=== PATIENT | male | born 1930 | race Caucasian/White ===

== ENCOUNTER 2017-04-10 10:14 | Outpatient (CLI) | payer MEDICARE, BC ==
--- NOTE | 2017-04-10 14:30 | RAD ---
LUMBAR SPINE WITH FLEXION AND EXTENSION 3 VIEWS: HISTORY: Lumbar spinal stenosis, M48.06. Low back pain radiating down to the legs. FINDINGS: There is a stent placement of the lower abdomen proximal to the iliac vessel. There is moderate to severe degenerative disk space height loss at L5-S1. Moderate degenerative dis k space height loss of L2-3 and L1-2. Large anterior osteophyte formation is also present. There is also extensive facet arthropathy at L4-5 and L5-S1. No acute fracture or malalignment. In the neutral position, there is no significant listhesis. With flexion and extension, there is al so no significant listhesis. IMPRESSION: Spondylosis, moderate, without significant translation on flexion or extension. POS: LISANDRO
== END 2017-04-10 10:15 | disposition home or self-care (01) ==
LOC: TBSIIMAG 10:14
PROVIDERS: ATTEND Neurological Surgery
DX: M48.061 Spinal stenosis, lumbar region without neurogenic claudication (principal); M47.816 Spondylosis without myelopathy or radiculopathy, lumbar region
CPT/HCPCS: 72100

== ENCOUNTER 2017-04-20 10:08 | Outpatient (CLI) | payer MEDICARE, BC ==
[2017-04-20 12:45] LABS: Hematocrit 44.4 % (42.0-52.0); Mean Platelet Volume 7.6 fL (7.4-10.4); White Blood Cell (WBC) Count 8.4 thou/uL (4.8-10.8)
[2017-04-20 12:56] LABS: Prothrombin Time 16.2 SEC (12.0-14.7)
[2017-04-20 13:09] LABS: Anion Gap 12 mmol/L (10-20); BUN (Urea Nitrogen) 8 mg/dL (8.4-25.7); Calc. Creatinine Clearance 0 mL/min (70-130); Calcium 9.5 mg/dL (7.8-10.44); Carbon Dioxide 24 mmol/L (23-31); Chloride 107 mmol/L (98-107); Estimated GFR-MDRD 74
--- NOTE | 2017-04-24 15:51 | EKG ---
Test Reason : Blood Pressure : / mmHG Vent. Rate : 062 BPM Atrial Rate : 062 BPM P-R Int : 178 ms QRS Dur : 094 ms QT Int : 404 ms P-R-T Axes : 043 -21 063 degrees QTc Int : 410 ms Sinus rhythm with occasional Premature ventricular complexes and Possible Premature atrial complexes with Abberant conduction Cannot rule out Anterior infarct , age undetermined Abnormal ECG No previous ECGs available Confirmed by DR. Jeny MOODY ([id number]) on 04/24/2017 3:50:50 PM Referred By: NELLY Confirmed By:DR. Jeny MOODY
== END 2017-04-20 10:09 | disposition home or self-care (01) ==
LOC: LABBT 10:08
PROVIDERS: ATTEND Neurological Surgery
DX: Z01.812 Encounter for preprocedural laboratory examination (principal); M48.061 Spinal stenosis, lumbar region without neurogenic claudication
CPT/HCPCS: 80048; 85027; 85610; 85730; 93005; 93010

== ENCOUNTER 2017-04-21 05:31 | Inpatient (IN) | payer MEDICARE, BC ==
[2017-04-20 11:03] VITALS: BMI 27.9
[2017-04-21] MEDS ORDERED: Levofloxacin 500 mg/D5W 100 ml Premix Bag ONE (06:06)
[2017-04-21] MEDS ORDERED: Clindamycin/D5W 900 mg/50 ml Premix Bag ONE (06:06)
[2017-04-21] MEDS ORDERED: Thrombin 5000 UNITS/5 ML VIAL ONE (06:17)
[2017-04-21] MEDS ORDERED: Bupivacaine PF 0.5% 30 ML VIAL ONE (06:17)
[2017-04-21] MEDS ORDERED: Sodium Chloride 0.9% 10 ML ONE (06:17)
[2017-04-21] MEDS ORDERED: Fentanyl 100 MCG/2 ML VIAL ONE ×2 (06:29→10:02)
[2017-04-21] MEDS ORDERED: ePHEDrine/0.9% NaCl/PF SYRINGE 50 mg/10 ml ONE (07:07)
[2017-04-21] MEDS ORDERED: Succinylcholine Chloride 20 MG/ML 10 ml SYRINGE FS ONE (07:07)
[2017-04-21] MEDS ORDERED: Esmolol 100 MG/10 ML VIAL ONE (07:07)
[2017-04-21] MEDS ORDERED: Glycopyrrolate 0.2 MG/ML 5 ML SYRINGE ONE (07:07)
[2017-04-21] MEDS ORDERED: Lidocaine 1% PF 5 ML VIAL ONE (07:07)
[2017-04-21] MEDS ORDERED: Ondansetron HCl/PF 4 MG/2 ML Vial ONE (07:07)
[2017-04-21] MEDS ORDERED: Propofol 200 MG/20 ML VIAL ONE (07:07)
[2017-04-21] MEDS ORDERED: Acetaminophen/Codeine 30-300mg Tablet PO PRN ×2 (09:19)
[2017-04-21] MEDS ORDERED: Bisacodyl 10 MG SUPP PR PRN (09:19)
[2017-04-21] MEDS ORDERED: Ondansetron HCl/PF 4 MG/2 ML Vial IVP PRN (09:19)
[2017-04-21] MEDS ORDERED: Morphine 4 MG/ML Carpuject SLOW IVP PRN (09:19)
[2017-04-21] MEDS ORDERED: tiZANidine HCl 4 MG TAB PO PRN (09:19)
[2017-04-21] MEDS ORDERED: Nitroglycerin 0.4 MG TAB (25 Tab Bottle) ONE (10:16)
--- NOTE | 2017-04-21 10:34 | OP ---
DATE OF SURGERY: 04/21/2017 SURGEON: Carmen Alva M.D. SUPERVISOR WET END: Americo Kerr PA-C. PREOPERATIVE INDICATION: Treat pain, prevent neurological deterioration. PREOPERATIVE DIAGNOSES: Severe lumbar stenosis, neurogenic claudication, L3-L4 and L4-L5. POSTOPERATIVE DIAGNOSES: Severe lumbar stenosis, neurogenic claudication, L3-L4 and L4-L5. OPERATIVE PROCEDURE: Decompressive laminectomy, medial facetectomy, foraminotomy L3-L4, L4-L5. PREOPERATIVE MEDICATION: Levaquin 500 mg IV, clindamycin 900 mg IV. DRAIN NUMBER: Zero. DRAIN TYPE: None. OPERATIVE DICTATION: The patient was brought to the operating room. General endotracheal anesthesi a was induced. The patient was positioned prone on the operating table with his chest and hips supp orted by gel-filled chest rolls. A lateral fluoro radiograph was used to plan our incision. The [facility] skin was sterilely prepped and draped. We opened with a 10 blade knife and controlled bleeding with bipolar and monopolar cautery. We used monopolar cautery to dissect through the subcutaneous tissues to the thoracodorsal fascia. We incised the fascia in the midline and reflected the paraspi nal muscles off the spinous process and lamina of L3, L4, and the top of L5. A lateral fluoro radio graph confirmed the levels upon which we were operating. We used an Adson rongeur to remove the spi nous process of L3 and L4 and the superior portion of L5. Using a Kerrison rongeur, we fashioned th e laminectomy from the bottom of L4 to all the way up to the top of the L3 pedicles. We widened our laminectomy defect. We removed the superior 10 mm of the L5 lamina. We then turned our attention to the lateral recesses. At L3-L4 and L4-L5, the facets were overgrown and the lateral recesses wer e severely compressed. We performed medial facetectomies on both sides and undermining with Kerriso n rongeurs. We widened the lateral recess until we identified the traversing L4 and L5 nerve roots. We followed the nerve roots up their respective foramina on either side, we performed foraminotomi es over these. We turned our attention to L3 nerve roots. We performed foraminotomy here as well. At the completion of our decompression, a Tavarez ball probe could pass through the spinal canal out the foramen at each of the L3, L4, and L5 nerve roots on either side. We irrigated copiously with bacitracin irrigation. We waxed the bone edges. We controlled epidural bleeding with gentle bipola r cautery. We infused local anesthetic in the paraspinal muscles. We irrigated copiously with baci tracin irrigation and closed the wound in anatomic layers. This was a clean case and no contaminati on.
[2017-04-21] MEDS ORDERED: Tamsulosin HCl 0.4 MG CAP PO SCH (20:30)
[2017-04-21] MEDS: Gabapentin 100 MG CAP PO SCH (21:10)
[2017-04-21] MEDS: Sodium Chloride 0.9% 1,000 ML IV SCH (21:10)
[2017-04-21] MEDS: Nitroglycerin 0.4 MG TAB (25 Tab Bottle) SL PRN ×2 (22:32→23:22)
[2017-04-21 23:10] LABS: #Eosinphils 0.1 thou/uL (0.0-0.7); #Lymphocytes 1.9 thou/uL (1.20-3.40); #Monocytes 1.2 thou/uL (0.11-0.59); #Neutrophils 8.9 thou/uL (1.40-6.50); %Basophils 0.2 % (0.0-1.0); %Lymphocytes 15.9 % (21.0-51.0); %Monocytes 9.8 % (0.0-10.0); Hematocrit 39.5 % (42.0-52.0); Mean Platelet Volume 6.9 fL (7.4-10.4); Red Blood Cell (RBC) Count 4.07 mill/uL (4.70-6.10); White Blood Cell (WBC) Count 12.2 thou/uL (4.8-10.8)
[2017-04-21 23:35] LABS: ALT (SGPT) 14 U/L (8-55); AST (SGOT) 28 U/L (5-34); Alkaline Phosphatase 69 U/L (40-150); Anion Gap 15 mmol/L (10-20); BUN (Urea Nitrogen) 7 mg/dL (8.4-25.7); Bilirubin, Total 1.4 mg/dL (0.2-1.2); Calc. Creatinine Clearance 69 mL/min (70-130); Calcium 8.7 mg/dL (7.8-10.44); Carbon Dioxide 21 mmol/L (23-31); Chloride 106 mmol/L (98-107); Estimated GFR-MDRD 78; Globulin 2.3 g/dL (2.4-3.5); Magnesium 1.5 mg/dL (1.6-2.6); Phosphorus 2.5 mg/dL (2.3-4.7); Protein, Total 5.5 g/dL (5.8-8.1)
[2017-04-21 23:39] LABS: Troponin I 1.366 ng/mL (< 0.028)
[2017-04-21] MEDS: Morphine 10 MG/ML VIAL SLOW IVP PRN (23:40)
[2017-04-22] MEDS ORDERED: Magnesium 2 GM/NS 0.9% 50 ML 2 GM in Premix Bag 1 BAG IVPB SCH (00:01)
--- NOTE | 2017-04-22 00:41 | PDOC.EVN ---
Event Note - Event Note Event Note: Ok to give Aspirin 81 mg per Neurosurgery. Will transfer patient to tele, Add Nitro patch, Increase Metoprolol dose, DC Imdur and Amlodipine. Echo and Cardiology consult in AM
[2017-04-22] MEDS ORDERED: Aspirin 81 mg Enteric Coated Tablet PO SCH ×2 (01:00→21:00)
[2017-04-22] MEDS ORDERED: Nitroglycerin 2% Ointment 1 INCH/1 GM Packet TOP SCH ×2 (01:00→09:15)
[2017-04-22] MEDS: Nitroglycerin 2% Ointment 1 INCH/1 GM Packet TOP SCH ×4 (01:07→17:11)
--- NOTE | 2017-04-22 01:27 | PDOC.PN ---
- Subjective Encounter Start Date: 04/22/17 Encounter Start Time: 01:23 Patient seen and examined. New consult for CP. s/p back surgery on 04/21. Had CP post op that responded to SL NTG. Had CP around 11 pm - moderate intensity, substernal with mild diaphoresis/SOB. Recently moved from [facility] care with Dr Xiao in the last 2 months. Had LAD stent placed 17 years ago with several Cath - last one around 18 months ago. Discontinued Plavix 2 months ago after Cochlear implant. Stopped ASA last week for back surgery. - Objective MAR Reviewed: Yes Vital Signs & Weight: Vital Signs (12 hours) Temp Pulse Resp BP Pulse Ox 04/22/17 00:00 98.3 F 82 14 162/72 H 96 04/21/17 22:40 127/72 04/21/17 22:31 98.7 F 80 16 147/74 H 96 04/21/17 20:40 98.7 F 69 18 128/66 97 04/21/17 20:00 98.7 F 69 18 95 Weight Weight 195 lb I&O: 04/20/17 04/21/17 04/22/17 06:59 06:59 06:59 Intake Total 300 Output Total 700 Balance -400 Result Diagrams: 04/21/17 23:03 04/21/17 23:03 Additional Labs: Laboratory Tests 04/21/17 23:03 CK-MB (CK-2) 10.4 H* Troponin I 1.366 H* Laboratory Tests 04/21/17 23:03 Magnesium 1.5 L EKG Reviewed by me: Yes (SR, NSST changes) Phys Exam - Physical Examination Constitutional: NAD Respiratory: no wheezing, no rales, no rhonchi Symmetrical Cardiovascular: RRR, no rub no heaves/pulsations Gastrointestinal: soft, non-tender, positive bowel sounds Musculoskeletal: no edema, pulses present Neurological: non-focal, normal sensation, moves all 4 limbs Psychiatric: normal affect, A&O x 3 Dx/Plan (1) NSTEMI (non-ST elevated myocardial infarction) Code(s): I21.4 - NON-ST ELEVATION (NSTEMI) MYOCARDIAL INFARCTION Status: Acute (2) Hypomagnesemia Code(s): E83.42 - HYPOMAGNESEMIA Status: Acute (3) CAD (coronary artery disease) Code(s): I25.10 - ATHSCL HEART DISEASE OF [place] CORONARY ARTERY W/O ANG PCTRS Status: Chronic (4) H/O prostate cancer Code(s): Z85.46 - PERSONAL HISTORY OF MALIGNANT NEOPLASM OF PROSTATE Status: Chronic (5) BPH (benign prostatic hyperplasia) Code(s): N40.0 - BENIGN PROSTATIC HYPERPLASIA WITHOUT LOWER URINRY TRACT SYMP Status: Chronic (6) HTN (hypertension) Code(s): I10 - ESSENTIAL (PRIMARY) HYPERTENSION Status: Chronic (7) S/P carotid endarterectomy Code(s): Z98.890 - OTHER SPECIFIED POSTPROCEDURAL STATES (8) CKD (chronic kidney disease) stage 2, GFR 60-89 ml/min Code(s): N18.2 - CHRONIC KIDNEY DISEASE, STAGE 2 (MILD) Status: Chronic (9) Chronic anemia Code(s): D64.9 - ANEMIA, UNSPECIFIED Status: Chronic (10) Mild protein-calorie malnutrition Code(s): E44.1 - MILD PROTEIN-CALORIE MALNUTRITION Status: Chronic - Plan DVT proph w/SCDs * Aspirin 81 mg started - RN confirmed with neurosurgery * Increase Betablockers * Echo * Consult Cardiology * No anticoagulants due to back surgery * Increase Lipitor dose * Serial CE * DC Amlodipine * AM labs * Replace Mg * Transferred to Tele * Full code * Hold Imdur - Start NTG patch * Doppler of B/L LE Review of Systems - Review of Systems Constitutional: negative: Fever, Chills, Sweats, Weakness, Malaise, Other Respiratory: negative: Cough, Dry, Shortness of Breath, Hemoptysis, SOB with Excertion, Pleuritic Pain, Sputum, Wheezing Gastrointestinal: negative: Nausea, Vomiting, Abdominal Pain, Diarrhea, Constipation, Melena, Hematochezia, Other Genitourinary: negative: Dysuria, Frequency, Incontinence, Hematuria, Retention , Other Neurological: negative: Weakness, Numbness, Incoordination, Change in Speech, Confusion, Seizures, Other - Medications/Allergies Allergies/Adverse Reactions: Allergies Allergy/AdvReac Type Severity Reaction Status Date / Time Cephalosporins Allergy hives, Verified 04/20/17 11:04 urticaria Penicillins Allergy hives, Verified 04/20/17 11:04 urticaria Medications: Current Medications Acetaminophen/Codeine Phosphate (Tylenol #3) 1 tab PO Q3H PRN PRN Reason: Mild Pain (1-3) Acetaminophen/Codeine Phosphate (Tylenol #3) 2 tab PO Q3H PRN PRN Reason: Moderate Pain (4-6) Aspirin (Ecotrin) 81 mg PO 0100 [facility] Stop: 04/22/17 03:00 Atorvastatin Calcium (Lipitor) 40 mg PO QPM [facility] Bisacodyl (Dulcolax) 10 mg AR Q12H PRN PRN Reason: Constipation Gabapentin (Neurontin) 200 mg PO HS [facility] Last Admin: 04/21/17 21:10 Dose: 200 mg Sodium Chloride (Normal Saline 0.9%) 1,000 mls @ 75 mls/hr IV .[id number] [facility] Last Admin: 04/21/17 21:10 Dose: 1,000 mls Iron/Minerals/Multivitamins (Theragran M) 1 tab PO DAILY [facility] Metoprolol Succinate (Toprol Xl) 12.5 mg PO NOW [facility] Stop: 04/22/17 03:00 Last Admin: 04/22/17 01:07 Dose: 12.5 mg Metoprolol Succinate (Toprol Xl) 12.5 mg PO BID [facility] Morphine Sulfate (Morphine) 2 mg SLOW IVP Q1H PRN PRN Reason: Moderate Breakthrough Pain Last Admin: 04/21/17 23:40 Dose: 2 mg Morphine Sulfate (Morphine) 4 mg SLOW IVP Q1H PRN PRN Reason: Severe Breakthrough Pain Nitroglycerin (Nitrostat) 0.4 mg SL Q5MIN PRN PRN Reason: Chest Pain Last Admin: 04/21/17 23:22 Dose: 0.4 mg Nitroglycerin (Nitro-Bid 2% Ointment) 1 inch TOP Q6HR [facility] Last Admin: 04/22/17 01:07 Dose: 1 inch Nitroglycerin (Nitro-Bid 2% Ointment) 1 inch TOP NOW [facility] Stop: 04/22/17 02:00 Last Admin: 04/22/17 01:16 Dose: Not Given Ondansetron HCl (Zofran) 4 mg IVP Q6H PRN PRN Reason: Nausea/Vomiting Pantoprazole Sodium (Protonix) 20 mg PO 2100 [facility] Glu/Kirk-Msm#1/D3/C/Mn/Hans/Bor [ Glucosamine Chondroitin Comple 1 each PO DAILY [facility] Sodium Chloride (Flush - Normal Saline) 10 ml IVF PRN PRN PRN Reason: Saline Flush Tamsulosin HCl (Flomax) 0.4 mg PO DAILY [facility] Tizanidine HCl (Zanaflex) 4 mg PO Q6H PRN PRN Reason: Muscle Spasm
[2017-04-22] MEDS: Morphine 10 MG/ML VIAL SLOW IVP PRN ×3 (02:31→17:10)
[2017-04-22 03:41] LABS: Troponin I 2.985 ng/mL (< 0.028)
--- NOTE | 2017-04-22 08:15 | PRG ---
DATE OF SERVICE: 04/22/[address] Olguin in his room this morning. He is an 86-year-old male status post decompression of the lumbar spine for lumbar spinal stenosis. His vital signs have been stable. He is slightly hype rtensive at blood pressure 145/74. Yesterday, he was complaining of chest pain and labs were obtain ed that showed CK-MB of 17 and troponin I of 2.985. His BNP was 170. Dr. Villa, his jewelry coater, h as been contacted and he had an echocardiogram of his heart this morning. He received nitroglycerin and morphine last night that seemed to resolve his chest pain fairly immediately. From a neurosurg ical standpoint, the pain that was radiating down his legs from before surgery has resolved. He is able to get up and walked 3 times in his room yesterday. He was able to tolerate a regular diet and he is complaining of some muscle spasms in the low back; however, he notes that walking helps signi ficantly. He can continue to work with physical therapy this morning and will have a venogram done this morning to look for DVT. If there are any further questions, please feel free to contact Neurosurgery.
[2017-04-22 08:23] LABS: Troponin I 6.176 ng/mL (< 0.028)
--- NOTE | 2017-04-22 08:23 | ULT ---
BILATERAL LOWER EXTREMITY VENOUS DOPPLER ULTRASOUND: Date: 04-22-17 Comparison: None. History: Recent immobilization, back surgery, evaluate for deep venous thrombosis. Technique: Multiplanar grayscale sonographic imaging of the venous structures of the bilateral lower extremities obtained with color flow and spectral analysis. FINDINGS: Bilateral common femoral veins, greater saphenous veins, femoral veins, popliteal veins, and posteri or tibial veins are patent. There is normal blood flow, augmentation, and compression within the dipesh p venous system bilaterally. No evidence for DVT seen on either side. There is an elongated mildly complex irregularly marginated focus of fluid echogenicity in the left popliteal fossa region measuring up to 3.5 x 0.7 x 0.9 cm, nonspecific. This may represent subcutane ous edema of an irregular popliteal fossa cyst, possibly ruptured. IMPRESSION: No evidence for deep venous thrombosis of either lower extremity. Small nonspecific mildly complex f luid collection posterior to the left knee in the left popliteal fossa region as described above. POS: LISANDRO
--- NOTE | 2017-04-22 08:27 | PRG ---
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 He had some soreness in the chest yesterday following surgery and he t hought it was from being prone on the operating table until the chest pain turned to tightness, pres sure and some shortness of breath. Nitroglycerin relieved the pain, aspirin was started. He was tr ansferred to the telemetry unit. He did have a bump in his troponins, although no significant EKG c hanges. 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 He is resting comfortably as I entered the room. His neurological examination of the lower extremities is reassuring. Dr. 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 We will need to start rehabilitation with physical therapy and keep him on aspirin. We will keep a león se eye on the wound for any evidence of hematoma formation or neurological deterioration.
[2017-04-22] MEDS ORDERED: [UNRECOGNIZED DRUG - OTHER] PO SCH (09:00)
[2017-04-22] MEDS ORDERED: Amlodipine 5 MG TAB PO SCH (09:00)
[2017-04-22] MEDS ORDERED: Atorvastatin Calcium 20 MG TAB PO SCH (09:00)
[2017-04-22] MEDS ORDERED: Multivit, Therapeutic 1 TAB PO SCH (09:00)
[2017-04-22] MEDS: Cyanocobalamin (Vitamin B-12) 1,000 MCG TAB PO SCH (09:17)
[2017-04-22] MEDS: Folic Acid 1 MG TAB PO SCH (09:17)
[2017-04-22] MEDS: Tamsulosin HCl 0.4 MG CAP PO SCH (09:17)
[2017-04-22] MEDS: Multivitamin W/ Minerals 1 TAB PO SCH (09:17)
[2017-04-22] MEDS: Sodium Chloride 0.9% 1,000 ML IV SCH (11:59)
--- NOTE | 2017-04-22 12:18 | CON ---
DATE OF CONSULTATION: 04/22/2017 INDICATION FOR CONSULTATION: An 86-year-old patient who is status post L4-L5 laminectomy who develo ped a perioperative myocardial infarction. HISTORY OF PRESENT ILLNESS: This is an 86-year-old gentleman who underwent an L3-L5 laminectomy, st arted developing chest pain after the procedure was given nitroglycerin and morphine. He continued to have some discomfort which waxed and waned during the afternoon and evening, it became worse. He then had cardiac enzymes obtained and these were found to be abnormal and appear to be suffering a non-ST segment elevation myocardial infarction. He was continued on the morphine as well as he had been then today started on aspirin. He also was given nitroglycerin. He does have a long history o f coronary artery disease in the past. He has had about 10 cardiac catheterizations in the last 17 years. He has had stents placed, the left anterior descending artery as well as the right coronary artery and possibly even the left circumflex. Most of this work was done in [place], [place]. He re cently moved here less than a year ago and has been followed by [facility]. When he was last a t [facility] he did complain of some chest discomfort about 3 weeks ago and he was started on l roula-acting Imdur and said his symptoms had improved. He was able to go back and do some exercise. Previously to having significant problems with spinal stenosis he was able to walk about a mile a da y and ride a bike about a half a mile a day until he noticed he would become increasingly fatigued a nd then noticed he was unable to walk due to leg pain and he said he really has not had any signific ant exercise in about 6 months, but did start doing some mild exercises once he had been started on the Imdur about 3 weeks ago. Unfortunately, after his surgery at this time, he presented with a darius cardial infarction. His EKG still shows ST segment depression, but no ST segment elevation, has bee n noted. His last cardiac catheterization was in 03/2016. At that time, he was told that there was no intervention necessary. According to the report he has a 30-40% stenosis in the left anterior d escending artery with a patent stent. The diagonal branch was less than 20%, left circumflex, obtus e marginal branch with 30% stenosis. The right coronary was less than 30% stenosed. His ejection f raction at that time was estimated at 65-70%. His last stress test was in 2015, which showed an eje ction fraction of 65-70% also. In 2013 he had angioplasty and stent placement to the right coronary artery. I believe his first stent was about 15 years ago to the left anterior descending artery at which time he was suffering acute anterior myocardial infarction before for which he was in the [facility] and underwent urgent angioplasty and stent placement. His last echocardiogram was in 06/2016. Ejection fraction was 70-75%. At this time fortunately, he is pain free and has no further discom fort and appears to be relatively comfortable also in bed at this time. PAST MEDICAL HISTORY: Significant for prostate cancer, bladder cancer. He has a thyroid nodule. Dora alonso has coronary artery disease, he has undergone angioplasty and stent placement. He has had a right shoulder replacement. He has possibly had a left iliac stent placement. He has had dyspepsia, dys phagia, gastroesophageal reflux disease. He has had a right carotid endarterectomy. He had a cochl ear implant on the left. He has had a Rotablader's also performed of his coronary arteries as well as a prostatectomy. SOCIAL HISTORY: He is . He has children who are alive and well. He stopped smoking in 1974 . Previously he said he smoked a pack a day for about 25 years. 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 FAMILY HISTORY: He has a positive family history for coronary artery disease. ALLERGIES: He is allergic to CEPHALEXIN and PENICILLIN. MEDICATIONS: At home include aspirin, Lipitor, calcium, gabapentin, glucosamine and Protonix. He h as also been recently started on the Norvasc as well as Imdur, Toprol-XL 12.5 mg a day, as well as F lucy. Since being in the hospital, his medications include nitroglycerin, morphine, Flomax, Protonix, mult ivitamins, Toprol-XL, Imdur 30 mg daily, gabapentin, Lipitor, aspirin 81 mg a day, Norvasc 5 mg half tablet daily. REVIEW OF SYSTEMS: He complains of some right shoulder discomfort. He has hearing loss. He had ba ck pain until he had his surgery yesterday, but is feeling much better. He had chest discomfort as noted in the history and physical above. Otherwise, his 12 point review of systems are relatively u nremarkable for an 86-year-old patient. PHYSICAL EXAMINATION: GENERAL: Reveals a well-developed, well-nourished gentleman who is in no acute distress at this mallory e. He is alert and oriented. VITAL SIGNS: Blood pressure 130/61, heart rate 80 and regular. He is afebrile, respiratory rate is 18, O2 saturation 96%. HEENT: Shows the head to be normocephalic and atraumatic. He has a well healed surgical incision i n the right carotid area. He has soft bilateral carotid bruits. He has good pulses, there is no JV D noted. The thyroid did not appear to be enlarged. CHEST: Clear to auscultation without rales, rhonchi or wheezing. CARDIOVASCULAR: Exam reveals a regular rate and rhythm, normal S1, S2, has occasional ectopy. Ther e were no gross murmurs, heaves, thrills, bruits or rubs noted. ABDOMEN: Soft and nontender with positive bowel sounds. No organomegaly or masses were noted. Fem oral pulses are present. He does have somewhat decreased pulses, but they are present, the left has a slight bruit. The popliteal pulses are present. Pedal pulses present on the right. I could not palpate pulses on the left. SKIN: Warm and dry. He has a surgical incision on the left lower back area. NEUROLOGIC: He appears to be okay, did not get out of bed for further evaluation. SKIN: Warm and dry. EKG shows a normal sinus rhythm with ST segment depression in V3 through V6 compatible with a non-ST segment elevation myocardial infarction, cardiac enzymes are elevated. The first set was 1.36, tro ponin I increased up to 2.98 and this morning around 7:00 was 6.176 with MB increasing up to 27.9. LDL was 57, his creatinine is 0.96, hemoglobin 14.4. IMPRESSION: 1. Non-ST segment elevation myocardial infarction in an 86-year-old patient who has a long history of coronary disease and has undergone angioplasty and stent placement. There appears to be some pro blem, perhaps with the stent in the left anterior descending artery. Since he is stabilized now and no further pain, hopefully, this will resolve, but we are unable to do any significant intervention obviously at this time due to his recent spinal surgery. I did explain that to him. I would agree with the aspirin and the long-acting nitroglycerin at this time in the form of Imdur and also would agree with beta blockers. 2. History of coronary artery disease. He has undergone multiple catheterizations and stent placem ents in the past, but continues to have a well preserved left ventricular systolic function accordin g to all the recent studies that I have evaluated. 3. History of gastroesophageal reflux disease. This is stable at this time. 4. History of spinal stenosis, he recently underwent surgery. He appears to be functionally improv ed and has no pain at this time. 5. Hypercholesterolemia. His LDL level was well controlled at 57. Would continue his medications as you are. 6. Hypertension. This is also stable at this time. I spent at least half an hour in discussion with this patient and also reviewed the records and also a phone call to his polisher eyeglass frames here in town. We had a lengthy discussion about his most recent e valuations and workups and the records that have been obtained earlier. Total consultation with dictation and review of the records and evaluation of the patient was close to 1 hour.
[2017-04-22] MEDS: Atorvastatin Calcium 40 MG TAB PO SCH (20:42)
[2017-04-22] MEDS: Gabapentin 100 MG CAP PO SCH (20:42)
[2017-04-23] MEDS: Sodium Chloride 0.9% 1,000 ML IV SCH ×2 (01:18→09:50)
[2017-04-23] MEDS: Nitroglycerin 2% Ointment 1 INCH/1 GM Packet TOP SCH ×4 (01:21→17:32)
[2017-04-23 05:16] LABS: #Eosinphils 0.4 thou/uL (0.0-0.7); #Lymphocytes 1.7 thou/uL (1.20-3.40); #Monocytes 1.6 thou/uL (0.11-0.59); #Neutrophils 8.6 thou/uL (1.40-6.50); %Basophils 0.2 % (0.0-1.0); %Eosinophils 3.4 % (0.0-10.0); %Monocytes 12.7 % (0.0-10.0); Hematocrit 36.6 % (42.0-52.0); Mean Platelet Volume 7.3 fL (7.4-10.4); Red Blood Cell (RBC) Count 3.72 mill/uL (4.70-6.10); White Blood Cell (WBC) Count 12.3 thou/uL (4.8-10.8)
[2017-04-23 05:37] LABS: Anion Gap 12 mmol/L (10-20); BUN (Urea Nitrogen) 10 mg/dL (8.4-25.7); Calc. Creatinine Clearance 70 mL/min (70-130); Calcium 8.1 mg/dL (7.8-10.44); Carbon Dioxide 20 mmol/L (23-31); Chloride 104 mmol/L (98-107); Estimated GFR-MDRD 79; Magnesium 1.9 mg/dL (1.6-2.6); Troponin I 9.238 ng/mL (< 0.028)
--- NOTE | 2017-04-23 06:53 | PRG ---
DATE OF SERVICE: 04/23/[address] Olguin in his room this morning. He is much more comfortable this morning than he was ye sterday. He denies any shortness of breath since yesterday. He denies any chest pain since yesterd ay. Physical therapy worked with him, they did do too much work because they did not want to exhaus t him and put extra strain on his heart. His back is sore, but his legs feel better than they did b efore surgery. On examination his neurological function is quite good. Laboratory evaluation suggests the troponin is higher this morning than it was yesterday, surprising ly. I will make sure Mr. Olguin is on full strength aspirin. I do not think he is ready for cardiac ca theterization due to the high risk of hemorrhage at the site of his operation and resulting compress ion of his cauda equina. I am happy that he is symptom free, but I would like his cardiac enzymes t o trend down, obviously. We will continue to monitor his progress here in the telemetry unit. We a ppreciated input from Dr. Villa from Cardiology.
[2017-04-23] MEDS ORDERED: Calcium Carbonate 500 MG ChewTAB PO PRN (08:13)
[2017-04-23] MEDS ORDERED: Senokot 8.6 MG TAB PO PRN (08:13)
[2017-04-23] MEDS ORDERED: Acetaminophen 325 MG TAB PO PRN (08:13)
[2017-04-23] MEDS ORDERED: Mag-Al 1200 mg/1200 mg/30 ML UDCUP PO PRN (08:13)
--- NOTE | 2017-04-23 08:17 | PDOC.PN ---
- Subjective Encounter Start Date: 04/23/17 Encounter Start Time: 08:15 Patient seen and examined. No new complaints. No overnight events. CP improved. No SOB/palpitations/syncope. - Objective MAR Reviewed: Yes Vital Signs & Weight: Vital Signs (12 hours) Temp Pulse Resp BP Pulse Ox 04/23/17 07:58 98.9 F 74 18 100/54 L 94 L 04/23/17 04:00 98.3 F 75 16 109/57 L 94 L 04/23/17 00:00 99.4 F 74 16 105/56 L 93 L Weight Weight 195 lb I&O: 04/22/17 04/23/17 04/24/17 06:59 06:59 06:59 Intake Total 1305 3459 Output Total 1250 1125 Balance 55 2334 Result Diagrams: 04/23/17 05:01 04/23/17 05:01 EKG Reviewed by me: Yes (Tele SR, PAT yesterday) Phys Exam - Physical Examination Constitutional: NAD Respiratory: no wheezing, no rhonchi Cardiovascular: RRR, no rub Gastrointestinal: soft, non-tender, positive bowel sounds Musculoskeletal: no edema Neurological: non-focal, moves all 4 limbs Psychiatric: A&O x 3 Dx/Plan (1) NSTEMI (non-ST elevated myocardial infarction) Code(s): I21.4 - NON-ST ELEVATION (NSTEMI) MYOCARDIAL INFARCTION Status: Acute Comment: on medical mngt, No Cath due to surgery, on ASA, BB and Statins. No ACEI/ARB due to BP on lower side. (2) PAT (paroxysmal atrial tachycardia) Status: Acute Comment: on Toprol (3) Hypomagnesemia Code(s): E83.42 - HYPOMAGNESEMIA Status: Acute Comment: replaced (4) CAD (coronary artery disease) Code(s): I25.10 - ATHSCL HEART DISEASE OF [place] CORONARY ARTERY W/O ANG PCTRS Status: Chronic Comment: with stents in the past (5) H/O prostate cancer Code(s): Z85.46 - PERSONAL HISTORY OF MALIGNANT NEOPLASM OF PROSTATE Status: Chronic (6) BPH (benign prostatic hyperplasia) Code(s): N40.0 - BENIGN PROSTATIC HYPERPLASIA WITHOUT LOWER URINRY TRACT SYMP Status: Chronic Comment: on flomax (7) Chronic diastolic heart failure Code(s): I50.32 - CHRONIC DIASTOLIC (CONGESTIVE) HEART FAILURE Status: Acute (8) HTN (hypertension) Code(s): I10 - ESSENTIAL (PRIMARY) HYPERTENSION Status: Chronic Comment: on Toprol - dose increased. (9) CKD (chronic kidney disease) stage 2, GFR 60-89 ml/min Code(s): N18.2 - CHRONIC KIDNEY DISEASE, STAGE 2 (MILD) Status: Chronic (10) Chronic anemia Code(s): D64.9 - ANEMIA, UNSPECIFIED Status: Chronic (11) Mild protein-calorie malnutrition Code(s): E44.1 - MILD PROTEIN-CALORIE MALNUTRITION Status: Chronic - Plan cont current plan of care, PT/OT, DVT proph w/SCDs * s/p Echo * Cardiology following * AM labs * Troponins in AM * No anticoagulants due to back surgery * Cont NTG patch - Imdur on hold * Doppler of B/L LE - negative Review of Systems - Review of Systems Respiratory: negative: Cough, Dry, Shortness of Breath, Hemoptysis, SOB with Excertion, Pleuritic Pain, Sputum, Wheezing Cardiovascular: negative: Chest Pain, Palpitations, Orthopnea, Paroxysmal Noc. Dyspnea, Edema, Light Headedness, Other Gastrointestinal: negative: Nausea, Vomiting, Abdominal Pain, Diarrhea, Constipation, Melena, Hematochezia, Other Neurological: negative: Weakness, Numbness, Incoordination, Change in Speech, Confusion, Seizures, Other - Medications/Allergies Allergies/Adverse Reactions: Allergies Allergy/AdvReac Type Severity Reaction Status Date / Time Cephalosporins Allergy hives, Verified 04/20/17 11:04 urticaria Penicillins Allergy hives, Verified 04/20/17 11:04 urticaria Medications: Current Medications Acetaminophen (Tylenol) 650 mg PO Q4H PRN PRN Reason: Headache/Fever or Pain Acetaminophen/Codeine Phosphate (Tylenol #3) 1 tab PO Q3H PRN PRN Reason: Mild Pain (1-3) Acetaminophen/Codeine Phosphate (Tylenol #3) 2 tab PO Q3H PRN PRN Reason: Moderate Pain (4-6) Al Hydroxide/Mg Hydroxide (Maalox) 30 ml PO Q6H PRN PRN Reason: Heartburn or Indigestion Aspirin (Aspirin) 325 mg PO DAILY [facility] Atorvastatin Calcium (Lipitor) 40 mg PO QPM [facility] Last Admin: 04/22/17 20:42 Dose: 40 mg Bisacodyl (Dulcolax) 10 mg [place] Q12H PRN PRN Reason: Constipation Calcium Carbonate (Tums) 1,000 mg PO Q4H PRN PRN Reason: Heartburn or Indigestion Cyanocobalamin (Vitamin B-12) 1,000 mcg PO DAILY [facility] Last Admin: 04/22/17 09:17 Dose: 1,000 mcg Docusate Sodium (Colace) 100 mg PO BID [facility] Folic Acid (Folvite) 1 mg PO DAILY [facility] Last Admin: 04/22/17 09:17 Dose: 1 mg Gabapentin (Neurontin) 200 mg PO HS [facility] Last Admin: 04/22/17 20:42 Dose: 200 mg Sodium Chloride (Normal Saline 0.9%) 1,000 mls @ 50 mls/hr IV .Q20H [facility] Iron/Minerals/Multivitamins (Theragran M) 1 tab PO DAILY [facility] Last Admin: 04/22/17 09:17 Dose: 1 tab Metoprolol Succinate (Toprol Xl) 12.5 mg PO BID [facility] Last Admin: 04/22/17 20:40 Dose: 12.5 mg Morphine Sulfate (Morphine) 2 mg SLOW IVP Q1H PRN PRN Reason: Moderate Breakthrough Pain Last Admin: 04/22/17 02:31 Dose: 2 mg Morphine Sulfate (Morphine) 4 mg SLOW IVP Q1H PRN PRN Reason: Severe Breakthrough Pain Last Admin: 04/22/17 17:10 Dose: 4 mg Multivitamins (Theragran) 1 tab PO DAILY [facility] Last Admin: 04/22/17 09:18 Dose: Not Given Nitroglycerin (Nitrostat) 0.4 mg SL Q5MIN PRN PRN Reason: Chest Pain Last Admin: 04/21/17 23:22 Dose: 0.4 mg Nitroglycerin (Nitro-Bid 2% Ointment) 1 inch TOP Q6HR [facility] Last Admin: 04/23/17 06:29 Dose: 1 inch Ondansetron HCl (Zofran) 4 mg IVP Q6H PRN PRN Reason: Nausea/Vomiting Pantoprazole Sodium (Protonix) 20 mg PO 2100 [facility] Last Admin: 04/22/17 20:42 Dose: 20 mg Senna (Senokot) 2 tab PO HSPRN PRN PRN Reason: Constipation Sodium Chloride (Flush - Normal Saline) 10 ml IVF PRN PRN PRN Reason: Saline Flush Tamsulosin HCl (Flomax) 0.4 mg PO DAILY [facility] Last Admin: 04/22/17 09:17 Dose: 0.4 mg Tizanidine HCl (Zanaflex) 4 mg PO Q6H PRN PRN Reason: Muscle Spasm
[2017-04-23] MEDS: Multivitamin W/ Minerals 1 TAB PO SCH (09:45)
[2017-04-23] MEDS: Tamsulosin HCl 0.4 MG CAP PO SCH (09:47)
[2017-04-23] MEDS: Folic Acid 1 MG TAB PO SCH (09:47)
[2017-04-23] MEDS: Aspirin 325 MG TAB PO SCH (09:47)
[2017-04-23] MEDS: Cyanocobalamin (Vitamin B-12) 1,000 MCG TAB PO SCH (09:47)
[2017-04-23] MEDS: Docusate 100 MG CAP PO SCH ×2 (09:48→20:54)
--- NOTE | 2017-04-23 15:23 | PDOC.CTH ---
<Rashida Solis - Last Filed: 04/23/17 15:20> Cardiology Progress Note - Subjective The pt was seen and examined. No overnight events. No cardiac complaints. He is complaining of chronic back pain and weakness. His concerns his immobilities. - Objective Vital Signs Temp Pulse Resp BP Pulse Ox 04/23/17 15:18 99 F 72 18 111/57 L 93 L 04/23/17 11:26 98.9 F 74 16 107/58 L 93 L 04/23/17 08:00 98.9 F 74 18 94 L 04/23/17 07:58 98.9 F 74 18 100/54 L 94 L 04/23/17 04:00 98.3 F 75 16 109/57 L 94 L Weight 195 lb 04/22/17 04/23/17 04/24/17 06:59 06:59 06:59 Intake Total 1305 3459 Output Total 1250 1125 Balance 55 2334 - Physical Examination General/Neuro: alert & oriented x3 Neck: no JVD present Lungs: CTA Heart: RRR Abdomen: soft Extremities: other: (No edema) - Telemetry Telemetry Rhythm: SR - Labs Result Diagrams: 04/23/17 05:01 04/23/17 05:01 Troponin/CKMB CK-MB (CK-2) 27.9 ng/mL (0-6.6) H* 04/22/17 07:45 Troponin I 9.238 ng/mL (< 0.028) H* 04/23/17 05:01 - Assessment/Plan 1. NSTEMI - the pt's condition is stable with ASA, BBlocker, and NTG paste 2. CAD with hx of stent placement - stable; cont. monitor on tele 3. Chronic diastolic heart failure - stable 4. HTN - stable with current medication 5. GERD - on Protonix MAR reviewed Review of Systems - Review of Systems Constitutional: reports: chills EENTM: reports: no symptoms reported Respiratory: reports: no symptoms reported Cardiac (ROS): reports: no symptoms reported ABD/GI: reports: no symptoms reported : reports: no symptoms reported Musculoskeletal: reports: no symptoms reported <Janett Villa - Last Filed: 04/23/17 16:56> Cardiology Progress Note - Objective Vital Signs Temp Pulse Resp BP Pulse Ox 04/23/17 15:18 99 F 72 18 111/57 L 93 L 04/23/17 11:26 98.9 F 74 16 107/58 L 93 L 04/23/17 08:00 98.9 F 74 18 94 L 04/23/17 07:58 98.9 F 74 18 100/54 L 94 L Weight 195 lb 04/22/17 04/23/17 04/24/17 06:59 06:59 06:59 Intake Total 1305 3459 Output Total 1250 1125 Balance 55 2334 - Labs Result Diagrams: 04/23/17 05:01 04/23/17 05:01 Troponin/CKMB CK-MB (CK-2) 27.9 ng/mL (0-6.6) H* 04/22/17 07:45 Troponin I 9.238 ng/mL (< 0.028) H* 04/23/17 05:01 - Assessment/Plan Pt. seen and eval. The T.I. is still trending upwards. He denies chest pain. I agree with the A/P by the CREEL CLERK.
[2017-04-23] MEDS: Morphine 10 MG/ML VIAL SLOW IVP PRN (17:32)
[2017-04-23] MEDS: Gabapentin 100 MG CAP PO SCH (20:54)
[2017-04-23] MEDS: Atorvastatin Calcium 40 MG TAB PO SCH (20:54)
[2017-04-24] MEDS: Nitroglycerin 2% Ointment 1 INCH/1 GM Packet TOP SCH ×2 (00:52→05:51)
[2017-04-24 05:09] LABS: #Eosinphils 0.8 thou/uL (0.0-0.7); #Lymphocytes 2.1 thou/uL (1.20-3.40); #Monocytes 1.3 thou/uL (0.11-0.59); #Neutrophils 5.8 thou/uL (1.40-6.50); %Basophils 0.1 % (0.0-1.0); %Eosinophils 7.7 % (0.0-10.0); %Lymphocytes 21.5 % (21.0-51.0); %Monocytes 12.8 % (0.0-10.0); Hematocrit 32.1 % (42.0-52.0); Mean Platelet Volume 7.7 fL (7.4-10.4); Red Blood Cell (RBC) Count 3.27 mill/uL (4.70-6.10)
[2017-04-24 05:24] LABS: ALT (SGPT) 15 U/L (8-55); AST (SGOT) 40 U/L (5-34); Alkaline Phosphatase 57 U/L (40-150); Anion Gap 6 mmol/L (10-20); BUN (Urea Nitrogen) 10 mg/dL (8.4-25.7); Bilirubin, Total 0.9 mg/dL (0.2-1.2); Calc. Creatinine Clearance 76 mL/min (70-130); Calcium 8.2 mg/dL (7.8-10.44); Carbon Dioxide 27 mmol/L (23-31); Chloride 104 mmol/L (98-107); Estimated GFR-MDRD 86; Globulin 2.2 g/dL (2.4-3.5); Magnesium 1.7 mg/dL (1.6-2.6); Phosphorus 2.4 mg/dL (2.3-4.7); Protein, Total 4.7 g/dL (5.8-8.1)
[2017-04-24 05:30] LABS: Critical Call Chem Troponin I RESULT DECREASING; Troponin I 6.559 ng/mL (< 0.028)
[2017-04-24] MEDS: Sodium Chloride 0.9% 1,000 ML IV SCH (05:51)
--- NOTE | 2017-04-24 07:24 | PRG ---
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 He had a bit of chest pain in th e evening yesterday and an EKG was done. His troponins are down this morning compared to yesterday and when I obvious reviewed the EKG, it did not seem to show significant changes from one done the d ay prior. 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 His gluteal musc le pain and his radiating leg symptoms are gone. He does not have the same discomfort he had prior to his surgery. 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
[2017-04-24] MEDS: Aspirin 325 MG TAB PO SCH (09:39)
[2017-04-24] MEDS: Tamsulosin HCl 0.4 MG CAP PO SCH (09:40)
[2017-04-24] MEDS: Cyanocobalamin (Vitamin B-12) 1,000 MCG TAB PO SCH (09:40)
[2017-04-24] MEDS: Multivitamin W/ Minerals 1 TAB PO SCH (09:40)
[2017-04-24] MEDS: Folic Acid 1 MG TAB PO SCH (09:40)
[2017-04-24] MEDS: Docusate 100 MG CAP PO SCH (09:41)
--- NOTE | 2017-04-24 10:40 | PDOC.CTH ---
<Rashida Solis - Last Filed: 04/24/17 11:08> Cardiology Progress Note - Subjective The pt was seen and examined. No overnight events. No cardiac complaints. He still complains of cold and requires more blankets. Up to chair. Complains of dizziness with position change or/and standing up. - Objective Vital Signs Temp Pulse Resp BP Pulse Ox 04/24/17 08:00 98.6 F 76 17 116/58 L 96 04/24/17 04:00 98.2 F 77 20 111/56 L 95 04/24/17 02:44 93 L Weight 195 lb 04/23/17 04/24/17 04/25/17 06:59 06:59 06:59 Intake Total 3459 2475 360 Output Total 1125 1250 Balance 2334 1225 360 - Physical Examination General/Neuro: alert & oriented x3 Neck: no JVD present Lungs: CTA (diminished at bases) Heart: RRR Extremities: other: (No edemas) - Telemetry Telemetry Rhythm: SR 65 - Labs Result Diagrams: 04/24/17 04:37 04/24/17 04:37 Troponin/CKMB CK-MB (CK-2) 27.9 ng/mL (0-6.6) H* 04/22/17 07:45 Troponin I 6.559 ng/mL (< 0.028) H* 04/24/17 04:37 - Assessment/Plan 1. NSTEMI - Trop is down today from yesterday; the pt's condition is stable with ASA, BBlocker, and NTG paste 2. CAD with hx of stent placement - stable; cont. monitor on tele 3. Chronic diastolic heart failure - stable 4. HTN - stable with current medication 5. GERD - on Protonix MAR reviewed * From Cardiac standpoint, the pt is stable to tx to rehab; The pt will f/u with Dr Villa' office within 2-3wks after he is d/mariama from Rehab Review of Systems - Review of Systems Constitutional: reports: chills EENTM: reports: no symptoms reported Respiratory: reports: no symptoms reported Cardiac (ROS): reports: no symptoms reported ABD/GI: reports: no symptoms reported : reports: no symptoms reported Musculoskeletal: reports: no symptoms reported Skin: reports: no symptoms reported Neurological: reports: no symptoms reported Endocrine: reports: no symptoms reported <Janett Villa - Last Filed: 04/24/17 15:12> Cardiology Progress Note - Objective Vital Signs Temp Pulse Resp BP Pulse Ox 04/24/17 12:00 97.9 F 65 18 109/55 L 96 04/24/17 08:00 98.6 F 76 17 116/58 L 96 04/24/17 04:00 98.2 F 77 20 111/56 L 95 Weight 195 lb 04/23/17 04/24/17 04/25/17 06:59 06:59 06:59 Intake Total 3459 2475 360 Output Total 1125 1250 Balance 2334 1225 360 - Labs Result Diagrams: 04/24/17 04:37 04/24/17 04:37 Troponin/CKMB CK-MB (CK-2) 27.9 ng/mL (0-6.6) H* 04/22/17 07:45 Troponin I 6.559 ng/mL (< 0.028) H* 04/24/17 04:37 - Assessment/Plan Pt. seen and eval. by me. No cardiac complaints. I agree with the A/P by the FRONT OF HOUSE MANAGER.I will see him in the office in 2-4 weeks.
--- NOTE | 2017-04-24 11:05 | PDOC.PN ---
- Subjective Encounter Start Date: 04/24/17 Encounter Start Time: 11:05 Patient seen and examined. No new complaints. No overnight events - Objective MAR Reviewed: Yes Vital Signs & Weight: Vital Signs (12 hours) Temp Pulse Resp BP Pulse Ox 04/24/17 08:00 98.6 F 76 17 116/58 L 96 04/24/17 04:00 98.2 F 77 20 111/56 L 95 04/24/17 02:44 93 L Weight Weight 195 lb I&O: 04/23/17 04/24/17 04/25/17 06:59 06:59 06:59 Intake Total 3459 0125 360 Output Total 1125 1250 Balance 2334 1225 360 Result Diagrams: 04/24/17 04:37 04/24/17 04:37 EKG Reviewed by me: Yes (Tele SR) Phys Exam - Physical Examination Constitutional: NAD Respiratory: no wheezing, no rhonchi Cardiovascular: RRR, no rub Gastrointestinal: soft, non-tender, positive bowel sounds Musculoskeletal: no edema Neurological: non-focal, moves all 4 limbs Dx/Plan (1) NSTEMI (non-ST elevated myocardial infarction) Code(s): I21.4 - NON-ST ELEVATION (NSTEMI) MYOCARDIAL INFARCTION Status: Acute Comment: on medical mngt, No Cath due to surgery, on ASA, BB and Statins. No ACEI/ARB due to BP on lower side. (2) PAT (paroxysmal atrial tachycardia) Status: Acute Comment: on Toprol (3) Hypomagnesemia Code(s): E83.42 - HYPOMAGNESEMIA Status: Acute Comment: replaced (4) CAD (coronary artery disease) Code(s): I25.10 - ATHSCL HEART DISEASE OF [place] CORONARY ARTERY W/O ANG PCTRS Status: Chronic Comment: with stents in the past (5) H/O prostate cancer Code(s): Z85.46 - PERSONAL HISTORY OF MALIGNANT NEOPLASM OF PROSTATE Status: Chronic (6) BPH (benign prostatic hyperplasia) Code(s): N40.0 - BENIGN PROSTATIC HYPERPLASIA WITHOUT LOWER URINRY TRACT SYMP Status: Chronic Comment: on flomax (7) Chronic diastolic heart failure Code(s): I50.32 - CHRONIC DIASTOLIC (CONGESTIVE) HEART FAILURE Status: Acute (8) HTN (hypertension) Code(s): I10 - ESSENTIAL (PRIMARY) HYPERTENSION Status: Chronic Comment: on Toprol - dose increased. (9) CKD (chronic kidney disease) stage 2, GFR 60-89 ml/min Code(s): N18.2 - CHRONIC KIDNEY DISEASE, STAGE 2 (MILD) Status: Chronic (10) Chronic anemia Code(s): D64.9 - ANEMIA, UNSPECIFIED Status: Chronic (11) Mild protein-calorie malnutrition Code(s): E44.1 - MILD PROTEIN-CALORIE MALNUTRITION Status: Chronic - Plan cont current plan of care, DVT proph w/SCDs * Can DC to Rehab - Patient is cleared by Cardiology * Home med rec done Review of Systems - Review of Systems Respiratory: negative: Cough, Dry, Shortness of Breath, Hemoptysis, SOB with Excertion, Pleuritic Pain, Sputum, Wheezing Cardiovascular: negative: Chest Pain, Palpitations, Orthopnea, Paroxysmal Noc. Dyspnea, Edema, Light Headedness, Other Gastrointestinal: negative: Nausea, Vomiting, Abdominal Pain, Diarrhea, Constipation, Melena, Hematochezia, Other - Medications/Allergies Allergies/Adverse Reactions: Allergies Allergy/AdvReac Type Severity Reaction Status Date / Time Cephalosporins Allergy hives, Verified 04/20/17 11:04 urticaria Penicillins Allergy hives, Verified 04/20/17 11:04 urticaria Medications: Current Medications Acetaminophen (Tylenol) 650 mg PO Q4H PRN PRN Reason: Headache/Fever or Pain Last Admin: 04/23/17 21:00 Dose: 650 mg Acetaminophen/Codeine Phosphate (Tylenol #3) 1 tab PO Q3H PRN PRN Reason: Mild Pain (1-3) Acetaminophen/Codeine Phosphate (Tylenol #3) 2 tab PO Q3H PRN PRN Reason: Moderate Pain (4-6) Al Hydroxide/Mg Hydroxide (Maalox) 30 ml PO Q6H PRN PRN Reason: Heartburn or Indigestion Aspirin (Aspirin) 325 mg PO DAILY [facility] Last Admin: 04/24/17 09:39 Dose: 325 mg Atorvastatin Calcium (Lipitor) 40 mg PO QPM [facility] Last Admin: 04/23/17 20:54 Dose: 40 mg Bisacodyl (Dulcolax) 10 mg [place] Q12H PRN PRN Reason: Constipation Calcium Carbonate (Tums) 1,000 mg PO Q4H PRN PRN Reason: Heartburn or Indigestion Cyanocobalamin (Vitamin B-12) 1,000 mcg PO DAILY [facility] Last Admin: 04/24/17 09:40 Dose: 1,000 mcg Docusate Sodium (Colace) 100 mg PO BID [facility] Last Admin: 04/24/17 09:41 Dose: 100 mg Folic Acid (Folvite) 1 mg PO DAILY [facility] Last Admin: 04/24/17 09:40 Dose: 1 mg Gabapentin (Neurontin) 200 mg PO HS [facility] Last Admin: 04/23/17 20:54 Dose: 200 mg Iron/Minerals/Multivitamins (Theragran M) 1 tab PO DAILY [facility] Last Admin: 04/24/17 09:40 Dose: 1 tab Isosorbide Mononitrate (Imdur Er) 30 mg PO DAILY [facility] Isosorbide Mononitrate (Imdur Er) 30 mg PO NOW [facility] Stop: 04/24/17 13:30 Metoprolol Succinate (Toprol Xl) 12.5 mg PO DAILY [facility] Morphine Sulfate (Morphine) 2 mg SLOW IVP Q1H PRN PRN Reason: Moderate Breakthrough Pain Last Admin: 04/22/17 02:31 Dose: 2 mg Morphine Sulfate (Morphine) 4 mg SLOW IVP Q1H PRN PRN Reason: Severe Breakthrough Pain Last Admin: 04/23/17 17:32 Dose: 4 mg Nitroglycerin (Nitrostat) 0.4 mg SL Q5MIN PRN PRN Reason: Chest Pain Last Admin: 04/21/17 23:22 Dose: 0.4 mg Ondansetron HCl (Zofran) 4 mg IVP Q6H PRN PRN Reason: Nausea/Vomiting Pantoprazole Sodium (Protonix) 20 mg PO 2100 [facility] Last Admin: 04/23/17 20:54 Dose: 20 mg Senna (Senokot) 2 tab PO HSPRN PRN PRN Reason: Constipation Sodium Chloride (Flush - Normal Saline) 10 ml IVF PRN PRN PRN Reason: Saline Flush Tamsulosin HCl (Flomax) 0.4 mg PO DAILY [facility] Last Admin: 04/24/17 09:40 Dose: 0.4 mg Tizanidine HCl (Zanaflex) 4 mg PO Q6H PRN PRN Reason: Muscle Spasm
[2017-04-24 12:39] VITALS: BP 109/55; TEMP 97.9
--- NOTE | 2017-04-24 15:53 | EKG ---
Test Reason : POST OP Blood Pressure : / mmHG Vent. Rate : 080 BPM Atrial Rate : 080 BPM P-R Int : 210 ms QRS Dur : 098 ms QT Int : 412 ms P-R-T Axes : 041 -48 047 degrees QTc Int : 475 ms Sinus rhythm with 1st degree A-V block Left anterior fascicular block Nonspecific ST abnormality Abnormal ECG When compared with ECG of 20-APR-2017 11:45, (Unconfirmed) Premature ventricular complexes are no longer Present Abberant conduction is no longer Present ME interval has increased Left anterior fascicular block is now Present QT has lengthened Confirmed by DR. Jeny MOODY ([id number]) on 04/24/2017 3:53:10 PM Referred By: ROSALEE Confirmed By:DR. Jeny MOODY
--- NOTE | 2017-04-24 15:55 | EKG ---
Test Reason : STAT Blood Pressure : / mmHG Vent. Rate : 093 BPM Atrial Rate : 093 BPM P-R Int : 182 ms QRS Dur : 098 ms QT Int : 366 ms P-R-T Axes : 015 -58 085 degrees QTc Int : 455 ms Normal sinus rhythm Left anterior fascicular block Septal infarct , age undetermined Abnormal ECG When compared with ECG of 21-APR-2017 10:34, (Unconfirmed) Septal infarct is now Present ST no longer depressed in Anterior leads Confirmed by DR. Jeny MOODY ([id number]) on 04/24/2017 3:55:27 PM Referred By: Confirmed By:DR. Jeny MOODY
--- NOTE | 2017-04-24 15:59 | EKG ---
Test Reason : Blood Pressure : / mmHG Vent. Rate : 080 BPM Atrial Rate : 080 BPM P-R Int : 200 ms QRS Dur : 098 ms QT Int : 390 ms P-R-T Axes : 027 -46 077 degrees QTc Int : 449 ms Sinus rhythm with occasional Premature ventricular complexes Left anterior fascicular block ST depression, consider subendocardial injury or digitalis effect Abnormal ECG When compared with ECG of 21-APR-2017 22:36, (Unconfirmed) Premature ventricular complexes are now Present Criteria for Septal infarct are no longer Present ST now depressed in Anterior leads T wave inversion less evident in Anterior leads Confirmed by DR. Jeny MOODY ([id number]) on 04/24/2017 3:58:37 PM Referred By: PIERCE Confirmed By:DR. Jeny MOODY
--- NOTE | 2017-04-24 16:09 | EKG ---
Test Reason : STAT CP Blood Pressure : / mmHG Vent. Rate : 075 BPM Atrial Rate : 075 BPM P-R Int : 190 ms QRS Dur : 098 ms QT Int : 368 ms P-R-T Axes : 039 -39 084 degrees QTc Int : 410 ms Sinus rhythm with occasional Premature ventricular complexes Left axis deviation Septal infarct , age undetermined Abnormal ECG When compared with ECG of 22-APR-2017 10:27, (Unconfirmed) No significant change was found Confirmed by DR. Jeny MOODY ([id number]) on 04/24/2017 4:08:54 PM Referred By: Teressa LEDESMA Confirmed By:DR. Jeny MOODY
--- NOTE | 2017-04-27 09:59 | DIS ---
DATE OF ADMISSION: 04/21/2017 DATE OF DISCHARGE: 04/24/2017 ADMISSION DIAGNOSES: Severe lumbar stenosis, neurogenic claudication, L3-L4 and L4-L5. DISCHARGE DIAGNOSES: Severe lumbar stenosis, neurogenic claudication L3-L4 and L4-5. Patient's pain has improved. DISCHARGE CONDITION: Patient is stable upon discharge and he is able to ambulate in the nova. Pain is well tolerated with pain medication and he is able to tolerate a regular diet. CONSULTATIONS: Physical therapy; Dr. Villa, Cardiology; hospitalist, Dr. Dank Prescott. PROCEDURES: The patient had decompressive laminectomy, medial facetectomy, and foraminotomy at L3-L4 , L4-L5. All images were taken intraoperatively. He did have a venogram that was done on 04/22/2017 and an ec hocardiogram on 04/22/2017. BRIEF HISTORY OF PRESENT ILLNESS: Mr. Olguin is an 86-year-old male, who we saw in the office. He has low back pain and pain that radiates into his legs when he stands for a period of time. He is un able to walk more than 100 yards without having pain in his legs and he has to sit down. Because of the signs of neurogenic claudication, he opted for neurosurgical intervention to take pressure off of the nerves coming out of his spine going down his legs. HOSPITAL COURSE: Mr. Olguin did well during the operation. However, postoperatively, he had some l eft-sided chest pain. Echocardiogram was done and some labs that showed he was having NSTEMI. Venog guero was completed and was negative. Dr. Villa was consulted and patient will follow up with Dr. Villa when he is discharged from the hospital. DISCHARGE PHYSICAL EXAMINATION: HEENT: Normocephalic, atraumatic. Hearing intact. Moist mucous membranes. Trachea is midline. Ey es: Pupils are equal and reactive to light. Extraocular muscles are intact. Sclerae is white, landry cteric. RESPIRATORY: Patient has bilateral symmetric chest rise. Appears to be in no shortness of breath. NEUROLOGIC: Cranial nerves II-XII were grossly intact. Speech is fluent. He answers my questions a ppropriately. There are no new neurologic deficits on exam. ACTIVITY: The patient can have regular activities upon discharge. Restrictions are lifting more ely n 15 pounds and bending forward. The patient is to walk as much as possible. DIET: The patient can have a heart healthy diet upon discharge. HOME MEDICATIONS: Include atorvastatin, calcium, Imdur ER, gabapentin, Protonix, Toprol-XL, glucosam ine-chondroitin complex, multivitamin, Nitrostat, Folvite, Colace, vitamin B12, full strength aspirin , Tylenol #3, and acetaminophen regular strength.
== END 2017-04-24 15:05 | DRG 515 ==
LOC: SDC 05:31 → SURG A 09:19 → 2NO 04-22 00:22
PROVIDERS: ADMIT Neurological Surgery; ATTEND Neurological Surgery
PROC: 01NB0ZZ Release Lumbar Nerve, Open Approach (ICD-10-PCS; principal; 2017-04-21)
DX: M48.062 Spinal stenosis, lumbar region with neurogenic claudication (principal); I21.4 Non-ST elevation (NSTEMI) myocardial infarction; I50.32 Chronic diastolic (congestive) heart failure; I13.0 Hypertensive heart and chronic kidney disease with heart failure and stage 1 through stage 4 chronic kidney disease, or unspecified chronic kidney disease; I97.191 Other postprocedural cardiac functional disturbances following other surgery; I47.1 Supraventricular tachycardia; E44.1 Mild protein-calorie malnutrition; I25.10 Atherosclerotic heart disease of native coronary artery without angina pectoris; Z95.5 Presence of coronary angioplasty implant and graft; Z85.46 Personal history of malignant neoplasm of prostate; Z85.51 Personal history of malignant neoplasm of bladder; Z96.611 Presence of right artificial shoulder joint; Z96.21 Cochlear implant status; Z90.79 Acquired absence of other genital organ(s); Z87.891 Personal history of nicotine dependence; Z88.1 Allergy status to other antibiotic agents; Z88.0 Allergy status to penicillin; Z79.82 Long term (current) use of aspirin; K21.9 Gastro-esophageal reflux disease without esophagitis; E78.00 Pure hypercholesterolemia, unspecified; E83.42 Hypomagnesemia; N40.0 Benign prostatic hyperplasia without lower urinary tract symptoms; N18.2 Chronic kidney disease, stage 2 (mild); D63.8 Anemia in other chronic diseases classified elsewhere; Z68.28 Body mass index [BMI] 28.0-28.9, adult; M54.16 Radiculopathy, lumbar region
CPT/HCPCS: 36415; 76001; 80048; 80053; 80061; 82553; 83735; 83880; 84100; 84484; 85025; 85027; 85610; 85730; 93005; 93010; 93306; 93970; A4216; G8978-GP-CN; G8979-GP-CK; G8996-GN-CI; G8997-GN-CH; J1956; J2001; J2270; J2405; J2704; J3010; J3370; J3475; J3490; S0020

== ENCOUNTER 2017-05-11 05:44 | Inpatient (IN) | payer MEDICARE, BC ==
[2017-05-11 06:20] LABS: #Basophils 0.1 thou/uL (0.0-0.2); #Eosinphils 0.5 thou/uL (0.0-0.7); #Lymphocytes 4.7 thou/uL (1.20-3.40); #Monocytes 1.1 thou/uL (0.11-0.59); #Neutrophils 4.8 thou/uL (1.40-6.50); %Basophils 0.9 % (0.0-1.0); %Eosinophils 4.8 % (0.0-10.0); %Lymphocytes 41.5 % (21.0-51.0); %Monocytes 9.6 % (0.0-10.0); Hematocrit 37.9 % (42.0-52.0); Mean Platelet Volume 6.9 fL (7.4-10.4); Red Blood Cell (RBC) Count 3.85 mill/uL (4.70-6.10); White Blood Cell (WBC) Count 11.2 thou/uL (4.8-10.8)
[2017-05-11] MEDS ORDERED: Morphine 4 MG/ML VIAL ONE (06:25)
[2017-05-11] MEDS ORDERED: Ondansetron HCl/PF 4 MG/2 ML Vial ONE (06:26)
[2017-05-11 06:43] LABS: ALT (SGPT) 14 U/L (8-55); AST (SGOT) 21 U/L (5-34); Alkaline Phosphatase 86 U/L (40-150); Anion Gap 16 mmol/L (10-20); BUN (Urea Nitrogen) 16 mg/dL (8.4-25.7); Bilirubin, Total 1.1 mg/dL (0.2-1.2); CK (CPK) 47 U/L (30-200); Calc. Creatinine Clearance 0 mL/min (70-130); Calcium 10.2 mg/dL (7.8-10.44); Carbon Dioxide 24 mmol/L (23-31); Chloride 104 mmol/L (98-107); Estimated GFR-MDRD 59; Globulin 3.2 g/dL (2.4-3.5); Protein, Total 6.9 g/dL (5.8-8.1)
[2017-05-11 06:54] LABS: Troponin I 0.408 ng/mL (< 0.028)
[2017-05-11 06:57] LABS: PTT 31.8 SEC (22.9-36.1); Prothrombin Time 17.5 SEC (12.0-14.7)
--- NOTE | 2017-05-11 08:04 | RAD ---
CHEST 1 VIEW: HISTORY: Chest pain. FINDINGS: No comparison. The cardiac silhouette is magnified by projection. Pulmonary vasculature is unremark able. Mediastinum is midline with aortic calcification. Patchy atelectasis is present at each lung base. No lobar consolidation or pneumothorax are visible. threat monitoring analyst leads overlie the chest. IMPRESSION: Chronic-type findings as detailed above. No active cardiopulmonary abnormalities are demonstrated. POS: H
--- NOTE | 2017-05-11 08:30 | CT ---
CT PULMONARY ANGIOGRAM CHEST INCLUDING 3D RENDERING: HISTORY: An 86-year-old male with worsening chest pain. FINDINGS: There is cardiomegaly with 3-vessel coronary artery calcific disease and multiple coronary artery sigrid nts. Bilateral pleural effusions with bilateral vascular congestion and some interstitial edema. No significant CT evidence for acute pulmonary embolism. No evidence of pericardial effusion. No medi astinal mass or adenopathy. Small hiatal hernia. Small bilateral renal cysts. No evidence of aorti c aneurysm. Fatty replacement of the pancreas. IMPRESSION: No significant CT evidence for acute pulmonary embolism. Evidence for congestive heart failure with some interstitial edema and pleural effusions. Other findings as above. POS: LISANDRO
[2017-05-11 08:56] LABS: Magnesium 2.3 mg/dL (1.6-2.6); Phosphorus 2.2 mg/dL (2.3-4.7)
[2017-05-11 09:58] LABS: Troponin I 0.4 ng/mL (< 0.028)
[2017-05-11] MEDS ORDERED: Acetaminophen 325 MG TAB PO PRN (12:27)
[2017-05-11] MEDS ORDERED: Ondansetron ODT 4 MG TAB PO PRN (12:27)
[2017-05-11] MEDS ORDERED: Bisacodyl 10 MG SUPP PR PRN (12:27)
[2017-05-11] MEDS ORDERED: Senokot 8.6 MG TAB PO PRN (12:27)
[2017-05-11] MEDS ORDERED: Nitroglycerin 0.4 MG TAB (25 Tab Bottle) PO PRN (12:27)
[2017-05-11] MEDS ORDERED: Ondansetron HCl/PF 4 MG/2 ML Vial IVP PRN (12:27)
[2017-05-11] MEDS ORDERED: Labetalol HCl 100 MG/20 ML VIAL SLOW IVP PRN (12:29)
[2017-05-11] MEDS ORDERED: hydrALAZINE 20 MG/ML VIAL SLOW IVP PRN (12:29)
[2017-05-11] MEDS ORDERED: Furosemide 40 MG/4 ML VIAL SLOW IVP SCH (12:30)
[2017-05-11] MEDS ORDERED: Nitroglycerin 2% Ointment 1 INCH/1 GM Packet TOP SCH (12:30)
[2017-05-11 12:43] VITALS: BMI 28.8
[2017-05-11] MEDS ORDERED: Furosemide 20 MG/2 ML VIAL SLOW IVP SCH ×2 (12:45→14:00)
[2017-05-11] MEDS ORDERED: Furosemide 100 MG in Sodium Chloride 0.9% 90 ML IVPB SCH (12:45)
[2017-05-11 12:47] LABS: Critical Call Chem Troponin I RESULT DECREASING; Troponin I 0.349 ng/mL (< 0.028)
[2017-05-11] MEDS: K-Phos Neutral 250 MG TAB PO SCH ×3 (13:31→20:17)
--- NOTE | 2017-05-11 13:36 | HP ---
DATE OF ADMISSION: 05/11/2017 PRIMARY CARE PHYSICIAN: Dr. Espitia at [facility]. REASON FOR COMPLAINT: Chest discomfort with shortness of breath. HISTORY OF PRESENT ILLNESS: The patient is an 86-year-old male with coronary artery disease, status post recent non-ST elevation OK and back surgery, presented to the emergency room with above complain ts. The patient underwent lumbar surgery on 04/21/2017. He developed non-ST elevation OK for which he wa s monitored on telemetry unit. He was discharged to inpatient rehabilitation after cleared by Cardio logy. No interventions were done due to recent back surgery. While at rehabilitation, patient developed congestive heart failure exacerbation for which he was sta rted on Lasix. He was discharged home on last (4 days ago on 40 mg oral Lasix). Patient sk ipped his Lasix dose yesterday. This morning around 4:30 a.m., patient woke up with sudden onset of chest discomfort with shortness o f breath. His chest discomfort was more or less constant, felt like tightness without any aggravatin g factor. He took 2 nitroglycerin with some help. He continued to have pain until he got morphine i n the emergency room. He denies any palpitations or syncope. No recent immobilization other than re cent surgery. No fevers, chills, cough reported. In the emergency room, initial vital signs showed temperature 98, respirations 16, pulse 78 with bloo d pressure of 115/73 with O2 saturation 98% on room air. His initial troponin was 0.408 with BNP of 1664. He received morphine along with Zofran in the emergency room. Due to recent surgery, underwen t CT angiogram of the chest that was consistent with pulmonary vascular congestion. A small amount o f IV fluids was given in the emergency room to prevent contrast induced nephropathy. PAST MEDICAL HISTORY: 1. Recent non-ST elevation OK. 2. Recent lumbar surgery. 3. Coronary artery disease, status post CABG. 4. History of prostate cancer. 5. Benign prostatic hypertrophy. 6. Hypertension. 7. CKD stage 2. 8. Chronic anemia. PAST SURGICAL HISTORY: 1. Carotid endarterectomy. 2. Back surgery. 3. Coronary stent placement. 4. Cochlear implant. 5. Right shoulder surgery. 6. Prostatectomy. ALLERGIES: The patient is allergic to PENICILLIN and CEPHALOSPORIN. CURRENT HOME MEDICATIONS: Patient does not remember any of his home medications. Echo did list to rafael e obtained from the family. SOCIAL HISTORY: Patient currently lives at home. No smoking, alcohol or drug use. 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 FAMILY HISTORY: Negative for premature coronary artery disease. REVIEW OF SYSTEMS: The following complete review of systems was negative, unless otherwise mentioned in the HPI or below: Constitutional: Weight loss or gain, ability to conduct usual activities. Skin: Rash, itching. Eyes: Double vision, pain. ENT/Mouth: Nose bleeding, neck stiffness, pain, tenderness. Cardiovascular: Palpitations, dyspnea on exertion, orthopnea. Respiratory: Shortness of breath, wheezing, cough, hemoptysis, fever or night sweats. Gastrointestinal: Poor appetite, abdominal pain, heartburn, nausea, vomiting, constipation, or diarr hea. Genitourinary: Urgency, frequency, dysuria, nocturia. Musculoskeletal: Pain, swelling. Neurologic/Psychiatric: Anxiety, depression. Allergy/Immunologic: Skin rash, bleeding tendency. PHYSICAL EXAMINATION: VITAL SIGNS: In the emergency room showed temperature 98, respirations 16, pulse rate of 78, blood p ressure 115/73 with O2 saturation 98% on room air. GENERAL: An 86-year-old male in mild respiratory distress, able to complete short phrases. Chest di scomfort has resolved. HEENT: Head is atraumatic, normocephalic. Sclerae are anicteric. Moist mucous membrane, no oral le eladia. NECK: Supple, no JVD appreciated. Again, JVD is difficult to assess due to body habitus. LUNGS: Showed scattered rales at bases. No rhonchi or wheezing. HEART: S1 and S2 present. Regular rate and rhythm. Healed midline scar from previous CABG. A 2/6 systolic murmur over the mitral area. No heaves or pulsation. ABDOMEN: Soft. Bowel sounds present, no rebound, guarding, no costovertebral angle tenderness. EXTREMITIES: Trace edema in bilateral feet. No calf tenderness. SKIN: Warm and dry. LYMPH NODES: No palpable lymph nodes in the neck. PERIPHERAL VASCULAR: Radial pulses palpable bilaterally. MUSCULOSKELETAL: No joint swelling or tenderness. LABORATORY DATA AND IMAGIN. Laboratory findings as discussed above. Phosphorus was 2.2, potassium 4.2, and creatinine 1.1. CBC showed WBC 11.2 with hemoglobin 12.5, hematocrit 37.9, and platelets 343. 2. EKG by my review showed sinus rhythm with left axis deviation with nonspecific ST-T wave changes in the lateral leads. 3. CT angiogram of the chest by my review as discussed above. IMPRESSION: 1. Non-ST elevation myocardial infarction. 2. Acute on chronic diastolic heart failure exacerbation. 3. Coronary artery disease, status post stent and coronary artery bypass grafting in the past. 4. Hypertension. 5. Recent lumbar surgery. 6. Chronic kidney disease stage 2 with mild worsening in creatinine. 7. Chronic anemia. 8. Benign prostatic hypertrophy. 9. History of prostate cancer. 10. Hypophosphatemia. Plan of care was discussed with the patient. CODE STATUS: FULL CODE. SURROGATE DECISION MAKER: The patient makes his own decisions with the help of his family. PLAN: The patient will be monitored on the telemetry unit. Due to blood pressure on the lower side, we will start him on Lasix drip. We will hold beta blockers due to the same reason. Cardiology and Neurosurgery will be consulted. We will resume physical therapy and occupational therapy. Recheck labs including cortisol level in a.m. We will add potassium supplementation. Fluid restriction at 1 800 mL a day. Plan of care was discussed with the patient and he stated understanding.
[2017-05-11] MEDS ORDERED: ISOVUE-370 76%-LOCM 1 ML ONE (13:43)
--- NOTE | 2017-05-11 14:49 | CON ---
CARDIOLOGY CONSULTATION NOTE DATE OF CONSULTATION: 05/11/2017 INDICATION FOR CONSULTATION: This is an 86-year-old gentleman who I recently saw on 04/22/2017 due t o a non-ST segment elevation myocardial infarction perioperatively while he was undergoing an L4-L5 l aminectomy. We were asked to see him again today due to chest pain and abnormal cardiac enzymes. Th e patient presented to the emergency room. HISTORY OF PRESENT ILLNESS: After undergoing his laminectomy on 04/22/2017, I believe it was, he dev eloped chest pain after the procedure, he was given nitroglycerin and morphine. He continued to have some discomfort, which waxed and waned during the afternoon and in the evening it became worse. He then had cardiac enzymes obtained. He was found to be suffering a non-ST segment elevation myocardia l infarction. His cardiac enzymes actually peaked up to 9.2, then he has done relatively well. He w as treated by medical management. He does have a long history of coronary artery disease. He has un dergone 10 cardiac catheterizations within the last 17 years. He says he has had some stents placed. I believe, he recently underwent a cardiac catheterization on 03/2016, at which time, he was told t hat no intervention was necessary. All of his cardiac catheterizations have been done in the outside facilities in [facility]. At the last cardiac catheterization according to the records, he had a 30% to 40% stenosis in the left anterior descending with a patent stent. The diagonal branch had less than 20% stenosis in the left circumflex, the obtuse marginal branch had 30% stenosis, the right coronary had less than 30% stenosis, ejection fraction was estimated at 65% to 70%. The last stress test he had was also in 2015, which showed an ejection fraction of 65% to 70%. In 2013, he had doroteo oplasty and stent placement to the right coronary artery. He says that the first stent was placed in the left anterior descending artery about 15 years ago, at which time he was suffering acute anterio r myocardial infarction. Apparently, he underwent urgent angioplasty and stent placement. The last echocardiogram was in 06/2016, which showed an ejection fraction of 70% to 75%. At the time he was i n the hospital, he remained stable. He was then sent to rehabilitation, was doing relatively well, b ut did say he had some chest discomfort and occasionally some shortness of breath while in the rehabi litation. He then went home. I think he was discharged on Thursday or from rehabilitation . He said he did well on Thursday and Thursday, but then yesterday, he started not feeling well and ye evening he said he was unable to lie down and became more short of breath and then developed chest pain. He took a nitroglycerin. I believe then 911 was called, he was given another nitroglyce rin, continued to have some discomfort until he arrived in the emergency room and was given more nitr oglycerin and I believe morphine and the pain is now resolved. His EKG does not show any acute moser es. Cardiac enzymes are still trending downwards from the last admission. His troponin I on the las t time it was checked while he was in the hospital was 6.5. Today is 0.408. His MB has already peak ed up to 27.9, today the MB is 1.3. His chest x-ray did show some small bilateral effusions; it appe ars that he may be having some congestive heart failure symptoms. This may be diastolic dysfunction. We will need to repeat the echocardiogram to ensure that his ejection fraction has remained stable. Otherwise, he seems to be doing quite well and stable and has no pain at this time. PAST MEDICAL AND SURGICAL HISTORY: Significant for prostate cancer, bladder cancer. He has a thyroi d nodule. He has had angioplasty and stent placement due to his coronary artery disease. He has had right shoulder surgery. He has had possibly a left iliac stent placement. He has gastroesophageal reflux disease. He has dyspepsia and dysphagia. He has had a right carotid endarterectomy, a left c ochlear implant. He has had rotablader performed on his coronary arteries. He has had a prostatecto my and he has also recently just had his laminectomy surgery. SOCIAL HISTORY: He is . He has children who are alive and well. He stopped smoking in 1974, previously he smoked a pack a day for 25 years. 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 FAMILY HISTORY: Positive for coronary artery disease. ALLERGIES: Allergic to PENICILLIN and CEPHALEXIN. MEDICATIONS: Included aspirin, Lipitor, calcium, gabapentin, glucosamine and Protonix. He has also been on Norvasc, as well as Toprol-XL and Flomax. REVIEW OF SYSTEMS: He does complain of some chest discomfort, which is now resolved and the shortnes s of breath. He is feeling much better now. He has no symptoms at this time. He said the back surg meena was very successful. He has been able to walk with a walker; he has been doing much better since his back surgery was performed. Otherwise, he has complaints of occasional right shoulder discomfor t. Otherwise, 12-point review of systems is unremarkable except what was noted in the history of the present illness. PHYSICAL EXAMINATION: GENERAL: Reveals a well-developed, well-nourished gentleman who is in no acute distress. VITAL SIGNS: Stable. Heart rate was in the 70s and shows a normal sinus rhythm. He has old EKG dot nges, but nothing new. No acute findings are noted. HEENT: Shows the head to be normocephalic and atraumatic. He has a well-healed surgical incision of the right carotid area. He has soft bilateral carotid bruits. There is no JVD noted. The thyroid is not enlarged. CHEST: Clear to auscultation. I did not elicit any rales, rhonchi or wheezing. CARDIOVASCULAR: Reveals a regular rate and rhythm with normal S1 and S2. There is no S3 or S4. The re were no significant murmurs, heaves, thrills, bruits or rubs. ABDOMEN: Soft and nontender with positive bowel sounds. No organomegaly or masses are noted. Femor al pulses are present. EXTREMITIES: Showed no clubbing, cyanosis or edema. Pedal pulses are slightly decreased. There is no evidence of edema. He does have a slight left femoral bruit. SKIN: Warm and dry. He has a surgical incision in the left lower back area. NEUROLOGIC: He appears to be otherwise okay. IMAGING DATA: His EKG is noted, shows nonspecific changes. There is no indication that the patient has had any further myocardial damage. IMPRESSION: 1. Possible congestive heart failure exacerbation, most likely this is diastolic in nature. We will obtain an echocardiogram for evaluation of the left ventricular systolic function and evaluate for p ossible diastolic dysfunction. We will continue to monitor the cardiac enzymes. I would agree with Lovenox at this time in this patient. He should be safe. We will continue his other medications wit h nitroglycerin and beta-blockers. 2. Coronary artery disease. He has had multiple cardiac catheterizations in the past, he may need a gain to undergo cardiac catheterization as a definitive tool to evaluate for possible progression of disease. I suspect on his last admission, he closed off the small vessel and suffered a non-ST segme nt elevation myocardial infarction. 3. Gastroesophageal reflux, which remains stable. 4. History of spinal stenosis. He is doing very well after surgery and is very happy with the resul ts thus far. 5. Hypercholesterolemia. This has been well controlled on the present medications. Hypertension is also stable. At this time, we will continue to follow the patient with you. We will consider a car diac catheterization based on the enzymes whether or not they continue to trend downwards or not. Ce rtainly, he may eventually during this hospitalization, need to undergo further evaluation, but also start a low dose of diuretics due to his bilateral pleural effusions and shortness of breath.
--- NOTE | 2017-05-11 17:45 | CON ---
DATE OF CONSULTATION: 05/11/2017 REASON FOR CONSULTATION: Recent lumbar spinal surgery on 04/21/2017. HISTORY OF PRESENT ILLNESS: Mr. Olguin is an 86-year-old male with coronary artery disease, status post recent non-ST elevation myocardial infarction and back surgery, who presented to the emergency room this morning. The patient underwent lumbar spinal surgery on 04/21/[address] Alva that included L3 through L5 laminectomy. During his stay, he developed a NSTEMI in which he was monitored in the telemetry unit and discharged to inpatient rehabilitation after being cleared by Cardiology and he spent approximately 7-10 days there. No interventions were done due to his recent back surgery. At rehabilitation, he developed congestive heart failure in which he was started on Lasix and was discharged home last with 40 mg oral Lasix. He skipped his Lasix dose yesterday and woke up this morning at approximately 4:30 a.m. with sudden onset of chest discomfort and felt tightness without any aggravating factors. He took 2 nitroglycerin that helped his pain some. He was brought to the Emergency Department at that time. Neurosurgery was consulted because of the recent lumbar spinal surgery and question of possible anticoagulation. Chest CTA from 05/11/[address] evidence for acute pulmonary embolism, evidence of congestive heart failure with some interstitial edema and pleural effusions. Lumbar spine x-ray shows spondylosis, moderate without significant translation on flexion and extension. PAST MEDICAL HISTORY: 1. Non-ST elevation myocardial infarction. 2. Recent lumbar surgery. 3. Coronary artery disease. 4. Status post coronary artery bypass graft. 5. History of prostate cancer. 6. Benign prostatic hypertrophy. 7. Hypertension. 8. Chronic kidney disease, stage 2. 9. Chronic anemia. PAST SURGICAL HISTORY: Includes; 1. Carotid endarterectomy. 2. Back surgery. 3. Coronary artery stent placement. 4. Cochlear implant. 5. Right shoulder surgery. 6. Prostatectomy. ALLERGIES: The patient is allergic to PENICILLIN and CEPHALOSPORINS. HOME MEDICATIONS: 1. Protonix 20 mg p.o. daily. 2. Nitroglycerin 0.4 mg sublingual q.5 minutes p.r.n. 3. Multivitamin 1 cap p.o. daily. 4. Metoprolol succinate 12.5 mg p.o. daily 5. Isosorbide mononitrate 30 mg p.o. daily. 6. Glucosamine chondroitin complex 1 tablet p.o. daily. 7. Gabapentin 200 mg p.o. at bedtime. 8. Folic acid 1 mg p.o. daily. 9. Docusate 100 mg p.o. b.i.d. 10. Vitamin B12 1000 mcg p.o. daily. 11. Atorvastatin calcium 1 tablet p.o. daily. 12. Aspirin 325 mg p.o. daily. 13. Acetaminophen with codeine 1 tablet p.o. q.3 hours p.r.n. SOCIAL HISTORY: The patient currently lives at home. No smoking, alcohol or drug use. 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 FAMILY HISTORY: Negative for premature coronary artery disease. REVIEW OF SYSTEMS: Positive for mild chest pain. A 10-point review of systems is complete and is otherwise negative unless stated in the above HPI. PHYSICAL EXAMINATION: VITAL SIGNS: Currently, temperature 98.7, pulse 61, respirations 18, O2 sats 94 % and blood pressure is 107/53. GENERAL: Mr. Olguin is an 86-year-old male in respiratory distress. He is now able to talk comfortably and can carry a conversation. He is in no acute distress. HEENT: Nontraumatic and normocephalic. Sclerae are nonicteric. NECK: Supple. No JVD appreciated. LUNG: The patient has bilateral symmetric chest rise. Appears to be no shortness of breath. He does have scattered rales at the bases. CARDIOVASCULAR: S1 and S2 are present. Regular rate and rhythm. He has a healed midline scar from previous CABG and a systolic murmur over the mitral area. EXTREMITIES: Patient has trace edema in bilateral feet. No calf tenderness. SKIN: Warm and dry. BACK: Has lumbar spinal incision that is healing well, is clean, dry, and intact. MUSCULOSKELETAL: No joint swelling or tenderness. Good strength in his upper and lower extremities bilaterally. Good insight. LABORATORY DATA: Shows phosphorus of 2.2, potassium of 4.2 and creatinine of 1.1. CBC showed a white blood cell count 11.2, hemoglobin 12.5, hematocrit 37.9 and platelets 243. Also shows a troponin I of 0.349 and BNP of 1664.7. IMAGING DATA: A CT angiogram of the chest by my review as discussed above. EKG shows sinus rhythm with left axis deviation and nonspecific ST-T wave changes in lateral leads. IMPRESSION: 1. Non-ST elevation myocardial infarction, acute on chronic diastolic heart failure exacerbation, coronary artery disease, status post stent and coronary artery bypass grafting in the past. 2. Hypertension. 3. Recent lumbar surgery. 4. Chronic kidney disease stage 2 with mild worsening of creatinine. 5. Chronic anemia. 6. Benign prostatic hypertrophy. 7. History of prostate cancer. 8. Hypophosphatemia. PLAN: Mr. Olguin is status post 3 weeks out from a lumbar laminectomy with Dr. Alva and Americo Kerr PA-C. I saw the patient and discussed activity restrictions as far as lifting, bending and twisting. We will follow Mr. Olguin while he is in the hospital as he is one of her recent lumbar spinal surgical patients. Mr. Olguin is currently on a full strength aspirin. I will consult with Dr. Alva about the question of starting Heparin or resuming Plavix if needed. If you have any further questions, please feel free to contact Neurosurgery. DONAVAN
[2017-05-11] MEDS: Potassium Chloride 10 MEQ TAB PO SCH (18:35)
[2017-05-11] MEDS: Famotidine 20 MG TAB PO SCH (20:17)
[2017-05-11] MEDS: Docusate 100 MG CAP PO SCH (20:17)
[2017-05-11] MEDS ORDERED: Atorvastatin Calcium 20 MG TAB PO SCH (21:00)
[2017-05-11] MEDS ORDERED: Metoprolol Tartrate 25 MG TAB PO SCH (21:00)
[2017-05-12 04:59] LABS: #Basophils 0.1 thou/uL (0.0-0.2); #Eosinphils 0.5 thou/uL (0.0-0.7); #Lymphocytes 3.8 thou/uL (1.20-3.40); #Monocytes 0.8 thou/uL (0.11-0.59); #Neutrophils 3.1 thou/uL (1.40-6.50); %Basophils 0.8 % (0.0-1.0); %Eosinophils 5.6 % (0.0-10.0); %Lymphocytes 46.3 % (21.0-51.0); %Monocytes 9.9 % (0.0-10.0); Mean Platelet Volume 7.4 fL (7.4-10.4); Red Blood Cell (RBC) Count 3.53 mill/uL (4.70-6.10); White Blood Cell (WBC) Count 8.3 thou/uL (4.8-10.8)
[2017-05-12 05:18] LABS: Anion Gap 13 mmol/L (10-20); BUN (Urea Nitrogen) 15 mg/dL (8.4-25.7); Calc. Creatinine Clearance 58 mL/min (70-130); Calcium 8.5 mg/dL (7.8-10.44); Carbon Dioxide 27 mmol/L (23-31); Chloride 103 mmol/L (98-107); Estimated GFR-MDRD 65; Phosphorus 4.5 mg/dL (2.3-4.7)
--- NOTE | 2017-05-12 07:24 | PRG ---
DATE OF SERVICE: 05/12/2017 I personally interviewed and examined the patient and agree with documentation of Americo Kerr PA-C, baylee ated 05/11/2017. 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 with some chest pain an d elevated myocardial enzymes. He has had no EKG changes. Neurosurgery was consulted on readmission . Most likely will decide on the risk and benefit profile of cardiac catheterization. 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 His pain that was in his gluteal muscles and radiating down the legs has gone. He is very pleased with the result of the operation. However, he has had 2 episodes of chest pain and elevated enzymes. This is not recurrent, 3 weeks fr om surgery, and a trip to [facility] [employer] [facility]. Judicious use of heparin and starting antiplatelet agents se ems reasonable to me.
[2017-05-12] MEDS ORDERED: Furosemide 40 MG TAB PO SCH (07:30)
[2017-05-12] MEDS: Potassium Chloride 10 MEQ TAB PO SCH (08:44)
[2017-05-12] MEDS: K-Phos Neutral 250 MG TAB PO SCH ×2 (08:44→12:46)
[2017-05-12] MEDS: Famotidine 20 MG TAB PO SCH (08:44)
[2017-05-12] MEDS: Docusate 100 MG CAP PO SCH (08:45)
[2017-05-12] MEDS ORDERED: Aspirin 325 MG TAB PO SCH (09:00)
[2017-05-12 11:32] VITALS: TEMP 98
[2017-05-12 13:19] VITALS: BP 99/53
--- NOTE | 2017-05-12 13:42 | DIS ---
DATE OF ADMISSION: 05/11/2017 DATE OF DISCHARGE: 05/12/2017 DISCHARGE DISPOSITION: Home with home health care through [facility]. FOLLOWUP: 1. Follow up with primary care physician, Dr. Espitia at [facility] in 1 week. 2. Follow up with Cardiology, Dr. Landen Villa in 2-3 weeks. ALLERGIES: The patient is allergic to CEPHALOSPORINS and PENICILLIN. The patient was seen and examined on the day of discharge. Denies any new complaints. No chest pain , shortness of breath, palpitations. DISCHARGE MEDICATIONS: Are same as admission medications. Potassium chloride 20 mEq daily was added . Other home medications were resumed as below: 1. Tylenol #3 needed. 2. Aspirin 325 mg daily. 3. Lipitor 20 mg daily. 4. Vitamin B12 1000 mcg daily. 7. Colace 100 mg b.i.d. 8. Folic acid 1 mg daily. 9. Lasix 40 mg daily. 10. Gabapentin 200 mg at bedtime. 11. Imdur ER 30 mg daily. 12. Toprol-XL 12.5 mg daily. 13. Multivitamin 1 tablet daily. 14. Sublingual nitroglycerin as needed. BRIEF HOSPITAL COURSE: The patient is an 86-year-old male with coronary artery disease with multiple stent placements as well as coronary artery bypass grafting with recent non-ST elevation MN, who pre sented to the hospital with chest discomfort and shortness of breath. Patient recently underwent oskar k surgery. Please refer to the history and physical dated 05/08/2017 for further details. The patient was admitted to the hospital with diagnosis of acute on chronic diastolic heart failure e xacerbation along with mild non-ST elevation MN. His maximum troponin was 0.4. He was managed conse rvatively due to recent back surgery. He was seen by Cardiology, Dr. Villa as well as Neurosurgery, Starr Alva. Due to fluid overload, he was started on Lasix drip with good response. Lasix drip morales s been discontinued. Patient feels much better now and he did not qualify for home O2. However, thi s was arranged per patient request. Please note that patient will pay for his home oxygen. The case was discussed with Cardiology, Dr. Villa, who agrees with the discharge plans. He was extensively co unseled on heart failure. He appears stable for discharge. FINAL DIAGNOSES: 1. Acute on chronic diastolic heart failure exacerbation. 2. Suspected non-ST elevation myocardial infarction. Other possibility could be elevated cardiac en zymes secondary to #1. 3. Coronary artery disease, status post multiple stents as well as coronary artery bypass grafting. 4. Hypertension. 5. Recent back surgery. 6. Chronic kidney disease stage 2 with mild worsening of the creatinine. His creatinine on the day of discharge is 1.08. His creatinine on admission was 1.16. 7. Hypophosphatemia with phosphorus of 2.2, this has been corrected. 8. Chronic anemia. 9. Benign prostatic hypertrophy. 10. History of prostate cancer. Plan of care was discussed with the patient. He stated understanding. Total time coordinating the discharge of this patient was 32 minutes.
--- NOTE | 2017-05-12 14:44 | PDOC.CTH ---
Cardiology Progress Note - Subjective The pt seen and examined. No overnight events. No cardiac complaints. - Objective Vital Signs Temp Pulse Pulse Pulse Resp BP BP 05/12/17 12:14 73 61 99/53 L 98/54 L 05/12/17 11:30 98.0 F 76 20 05/12/17 09:01 77 116/58 L 05/12/17 09:00 97.9 F 77 18 05/12/17 08:41 97.9 F 77 18 05/12/17 03:42 97.9 F 66 18 BP BP Pulse Ox Pulse Ox Pulse Ox 05/12/17 12:14 95 95 05/12/17 11:30 96/53 L 92 L 05/12/17 09:01 94 L 05/12/17 09:00 94 L 05/12/17 08:41 103/57 L 94 L 05/12/17 03:42 100/55 L 94 L Weight 189 lb 2 oz 05/11/17 05/12/17 05/13/17 06:59 06:59 06:59 Intake Total 993 Output Total 1675 Balance -682 - Physical Examination General/Neuro: alert & oriented x3 Neck: no JVD present Lungs: CTA Heart: RRR Abdomen: soft Extremities: other: (No edema) - Telemetry Telemetry Rhythm: SR with 1st AVB 70s - Labs Result Diagrams: 05/12/17 04:27 05/12/17 04:27 Troponin/CKMB CK-MB (CK-2) 1.3 ng/mL (0-6.6) 05/11/17 06:12 Troponin I 0.349 ng/mL (< 0.028) H* 05/11/17 12:07 - Assessment/Plan 1. Acute on Chronic Diastolic HF - Stable with current medication; 2. CAD with hx of stents and CABG - stable with current medication; the pt will f/u with Counter Clerk at [facility] 3. HTN - stable; Instructed to cont. checking his VS at home 4. Hyperlipidemia - on statin; 5. S/p Laminectomy in 04/2017 - stable; 6. CKD stage 2 - stable 7. GERD - well controlled MAR reviewed Review of Systems - Review of Systems Constitutional: reports: no symptoms reported EENTM: reports: no symptoms reported Respiratory: reports: no symptoms reported Cardiac (ROS): reports: no symptoms reported ABD/GI: reports: no symptoms reported : reports: no symptoms reported Musculoskeletal: reports: no symptoms reported
== END 2017-05-12 14:40 | disposition home health service (06) | DRG 280 ==
LOC: ERS 05:44 → ERHOLD 07:30 → 2NO 12:25
PROVIDERS: ADMIT Internal Medicine; ATTEND Internal Medicine
DX: I13.0 Hypertensive heart and chronic kidney disease with heart failure and stage 1 through stage 4 chronic kidney disease, or unspecified chronic kidney disease (principal); I50.33 Acute on chronic diastolic (congestive) heart failure; I22.2 Subsequent non-ST elevation (NSTEMI) myocardial infarction; I21.4 Non-ST elevation (NSTEMI) myocardial infarction; D64.9 Anemia, unspecified; Z95.1 Presence of aortocoronary bypass graft; N18.2 Chronic kidney disease, stage 2 (mild); I25.10 Atherosclerotic heart disease of native coronary artery without angina pectoris; Z95.5 Presence of coronary angioplasty implant and graft; E83.39 Other disorders of phosphorus metabolism; N40.0 Benign prostatic hyperplasia without lower urinary tract symptoms; Z85.46 Personal history of malignant neoplasm of prostate; K21.9 Gastro-esophageal reflux disease without esophagitis; Z98.890 Other specified postprocedural states; E78.00 Pure hypercholesterolemia, unspecified
CPT/HCPCS: 36415; 71010; 71275; 80048; 80053; 82533; 82553; 83735; 83880; 84100; 84484; 85025; 85379; 85610; 85730; 93005; 93798; 96361; 96374; 96375; A4216; G8978-GP-CI; G8979-GP-CI; G8980-GP-CI; G8987-GO-CI; G8988-GO-CI; G8989-GO-CI; J1940; J2270; J2405; J7050

== ENCOUNTER 2017-05-15 03:39 | Inpatient (IN) | payer MEDICARE, BC ==
[2017-05-15] MEDS ORDERED: Morphine 4 MG/ML VIAL ONE (03:59)
[2017-05-15] MEDS ORDERED: Nitroglycerin 2% Ointment 1 INCH/1 GM Packet ONE (04:00)
[2017-05-15] MEDS ORDERED: Nitroglycerin 0.4 MG TAB (25 Tab Bottle) ONE (04:00)
[2017-05-15 04:21] LABS: #Basophils 0.1 thou/uL (0.0-0.2); #Eosinphils 0.4 thou/uL (0.0-0.7); #Lymphocytes 3.9 thou/uL (1.20-3.40); #Monocytes 1.2 thou/uL (0.11-0.59); #Neutrophils 6.7 thou/uL (1.40-6.50); %Basophils 0.7 % (0.0-1.0); %Eosinophils 3.5 % (0.0-10.0); %Lymphocytes 31.5 % (21.0-51.0); %Monocytes 9.5 % (0.0-10.0); Mean Platelet Volume 8.1 fL (7.4-10.4); Red Blood Cell (RBC) Count 4.13 mill/uL (4.70-6.10); White Blood Cell (WBC) Count 12.3 thou/uL (4.8-10.8)
[2017-05-15 04:43] LABS: ALT (SGPT) 14 U/L (8-55); AST (SGOT) 28 U/L (5-34); Alkaline Phosphatase 89 U/L (40-150); Anion Gap 17 mmol/L (10-20); BUN (Urea Nitrogen) 14 mg/dL (8.4-25.7); Bilirubin, Total 1.3 mg/dL (0.2-1.2); CK (CPK) 46 U/L (30-200); Calc. Creatinine Clearance 0 mL/min (70-130); Calcium 10.2 mg/dL (7.8-10.44); Carbon Dioxide 24 mmol/L (23-31); Chloride 101 mmol/L (98-107); Estimated GFR-MDRD 58; Globulin 3.5 g/dL (2.4-3.5); Lipase 8 U/L (8-78); Protein, Total 7.5 g/dL (5.8-8.1)
[2017-05-15 04:47] LABS: Troponin I 0.184 ng/mL (< 0.028)
[2017-05-15] MEDS ORDERED: Mag-Al 1200 mg/1200 mg/30 ML UDCUP ONE (05:39)
[2017-05-15] MEDS ORDERED: Lidocaine Viscous Sol 2% 15 ml UD Cup ONE (05:39)
[2017-05-15] MEDS ORDERED: HYDROcodone/Acetaminophen 5/325 mg Tablet PO PRN (07:26)
[2017-05-15] MEDS ORDERED: Acetaminophen 325 MG TAB PO PRN (07:26)
[2017-05-15] MEDS ORDERED: Zolpidem Tartrate 5 MG TAB PO PRN (07:26)
[2017-05-15] MEDS ORDERED: hydrALAZINE 20 MG/ML VIAL SLOW IVP PRN (07:26)
[2017-05-15] MEDS ORDERED: Ondansetron HCl/PF 4 MG/2 ML Vial IVP PRN (07:26)
[2017-05-15] MEDS ORDERED: Chloraseptic Spray 180 ml Bottle PO PRN (07:26)
[2017-05-15] MEDS ORDERED: Senokot 8.6 MG TAB PO PRN (07:26)
[2017-05-15] MEDS ORDERED: Nitroglycerin 0.4 MG TAB (25 Tab Bottle) SL PRN (07:26)
[2017-05-15] MEDS ORDERED: Diabetic Tussin 200 MG/10 ML UDCUP PO PRN (07:26)
[2017-05-15] MEDS ORDERED: Milk Of Magnesia 30 ML UDCUP PO PRN (07:26)
[2017-05-15] MEDS ORDERED: Eucerin (Mineral Oil/Petrolatum,White) 30 gm Jar TOP PRN (07:26)
[2017-05-15] MEDS ORDERED: Sodium Chloride 0.65% Nasal 44 ML BOT EA NARE PRN (07:26)
[2017-05-15] MEDS ORDERED: Loperamide HCl 2 MG CAP PO PRN (07:26)
[2017-05-15] MEDS ORDERED: Artificial Tears 18 DROP/0.9 ML EA EYE PRN (07:26)
[2017-05-15] MEDS ORDERED: Loratadine 10 MG TAB PO PRN (07:26)
[2017-05-15] MEDS ORDERED: Ondansetron ODT 4 MG TAB PO PRN (07:26)
[2017-05-15 07:48] LABS: Troponin I 0.189 ng/mL (< 0.028)
[2017-05-15] MEDS ORDERED: Morphine 4 MG/ML VIAL IV PRN ×2 (07:59→08:00)
[2017-05-15] MEDS ORDERED: Atorvastatin Calcium 20 MG TAB PO SCH (09:00)
[2017-05-15] MEDS ORDERED: Aspirin 325 MG TAB PO SCH (09:00)
[2017-05-15] MEDS ORDERED: Furosemide 40 MG TAB PO SCH (09:00)
[2017-05-15] MEDS ORDERED: Multivit, Therapeutic 1 TAB PO SCH (09:00)
[2017-05-15] MEDS ORDERED: Enoxaparin Sodium 40 MG/0.4 ML SYRINGE SC SCH (09:00)
--- NOTE | 2017-05-15 10:18 | RAD ---
PORTABLE UPRIGHT FRONTAL CHEST RADIOGRAPH: Date: 05-15-17 Comparison: 05-11-17 History: Chest pain. FINDINGS: Stable heart and mediastinal contours. Stable mild increased density in the medial left base with sli ght blunting of the left costophrenic angle. Stable diffuse mild increased linear interstitial densit y. No focal consolidation or alveolar edema. IMPRESSION: Stable appearance of the chest. Question small pleural effusion and persistent mild pulmonary parench ymal opacity within the left lung base. POS: [facility]
[2017-05-15 10:40] LABS: Troponin I 0.704 ng/mL (< 0.028)
[2017-05-15] MEDS ORDERED: Heparin 1000 UNIT/NS 500ML(OR) 1,000 ML ONE (11:02)
[2017-05-15] MEDS ORDERED: Midazolam HCl 2 mg/2 ml Vial ONE (11:46)
[2017-05-15] MEDS ORDERED: Fentanyl 100 MCG/2 ML VIAL ONE (11:47)
--- NOTE | 2017-05-15 11:49 | CON ---
DATE OF CONSULTATION: 05/15/2017 REASON FOR CONSULTATION: Unstable angina. HISTORY OF PRESENT ILLNESS: Mr. Olguin is a very pleasant 78-year-old gentleman who was seen and ev aluated last week ago when he presented with elevated troponin. He had just undergone a laminectomy on 04/21/2017. His peak CK-MB was 9.2. He was treated conservatively. He recently presented with acute onset of chest pain that occurred and awoken him from sleep. He use d multiple rounds of nitroglycerin with final relief. He is currently chest pain free. From a cardiac standpoint, he underwent coronary angiography 1-1/2 years ago and had the following no radha; 30-40% stenosis of the LAD with a patent stent, diagonal branch 20% stenosis, circumflex artery with an OM that had 30% stenosis in the right coronary artery with less than 30%, stenosis and LVEF 6 5%-70%. His LVEF has been normal. Non-Q-wave HI on 04/22/2016 with a peak troponin of 6. PAST MEDICAL HISTORY: CAD status post stent placement, right shoulder replacement, left iliac stent placement, dyspepsia, acid reflux, carotid endarterectomy, cochlear implant, and prostatectomy. SOCIAL HISTORY: Currently . He recently moved from [facility]. FAMILY HISTORY: Positive for CAD. CURRENT MEDICATIONS: CEPHALEXIN, PENICILLIN. HOME MEDICATIONS: Include Lipitor, calcium, gabapentin, glucosamine, Toprol, Norvasc, Protonix, and Flomax. REVIEW OF SYSTEMS: Ten-point review of systems is reviewed and as above, otherwise negative. PHYSICAL EXAMINATION: GENERAL: Patient is a pleasant male who is in no acute distress. The patient appears his stated age . VITAL SIGNS: Blood pressure 118/64, pulse 75, and temperature 97.7. NEUROLOGIC: The patient is alert and oriented times 3 with no focal neurologic deficits. HEENT: Sclerae without icterus. Mouth has moist mucous membranes with normal pallor. NECK: No JVD. Carotid upstroke brisk. No bruits bilaterally. LUNGS: Clear to auscultation with unlabored respirations. BACK: No scoliosis or kyphosis. CARDIAC: Regular rate and rhythm with normal S1 and S2. No S3 or S4 noted. No significant rubs, mu rmurs, thrills, or gallops noted throughout the precordium. PMI is not displaced. There is no candy ternal heave. ABDOMEN: Soft, nontender, nondistended. No peritoneal signs present. No hepatosplenomegaly. No ab normal striae. EXTREMITIES: 2+ femoral and 2+ dorsalis pedis pulses. No cyanosis, clubbing, or edema. SKIN: No gross abnormalities. PERTINENT LABORATORY DATA: Hemoglobin 13.5. Initial troponin of 0.1 and increased of 0.704. IMPRESSION: Unstable angina. RECOMMENDATIONS: This is the third episode of unstable angina for Mr. Olguin. First episode occurr ed in the perioperative period. He then presented last week with similar symptoms and was treated co nservatively. Discussed the case with Americo Kerr who discussed the case with Dr. Alva about ant icoagulation therapy. At this point, can proceed from a Neurosurgery standpoint with full anticoagul ation if needed. I discussed the procedure in full detail with Mr. Olguin. Risks included not limi radha to the following: , stroke, HI, need for emergency surgery, loss of limb, bleeding, and inf ection, as well as a reaction to the dye causing kidney failure and needing long-term dialysis. Other risks include acute stent thrombosis and restenosis, vessel dissection, perforation, need for emerge ncy surgery in addition to distal embolization causing chronic foot discomfort as well as amputation. risks of PCI. I also discussed drug-coated versus nondrug coated stent placement. We will proceed w ith drug-coated stent placement if needed. There are no contraindications. No further surgeries are planned. Further recommendations are pending the above.
[2017-05-15] MEDS ORDERED: Acetaminophen/Codeine 30-300mg Tablet PO PRN ×2 (12:06)
[2017-05-15] MEDS ORDERED: traMADol HCl 50 MG TAB PO PRN (12:06)
[2017-05-15] MEDS ORDERED: Nitroglycerin 50 MG/250 ML BOT 250 ML ONE (12:08)
[2017-05-15] MEDS ORDERED: Sodium Chloride 0.9% 200 ML IV SCH (12:15)
[2017-05-15] MEDS ORDERED: Diazepam 5 MG TAB PO PRN (12:57)
[2017-05-15] MEDS ORDERED: Communication Order-Pharmacy FS SCH (12:57)
--- NOTE | 2017-05-15 13:20 | CON ---
DATE OF CONSULTATION: 05/15/2017 HISTORY OF PRESENT ILLNESS: Mr. Olguin is a pleasant 86-year-old gentleman who was admitted today w ith angina. He underwent urgent cardiac catheterization due to positive enzymes. He was found to morales ve an occluded LAD stent. His circumflex artery has 99% lesion proximally. The right coronary has 8 0% tandem lesions. The potential targets include an LAD, OM, PL branch. Ejection fraction on ventri culogram is approximately 35%. I have been asked to see him to discuss coronary artery bypass grafti ng. PAST MEDICAL HISTORY: 1. Coronary artery disease/status post multiple stents. 2. Carotid disease, status post left carotid endarterectomy many years ago. 3. History of prostate cancer, status post radical prostatectomy. 4. Gastroesophageal reflux disease. 5. Hypertension. 6. Hyperlipidemia. 7. Peripheral vascular disease, status post left iliac stent. PAST SURGICAL HISTORY: 1. Right shoulder replacement. 2. Left carotid endarterectomy. 3. Cochlear implant. 4. Radical prostatectomy. 5. Recent laminectomy by Dr. Alva. HOME MEDICATIONS: 1. Lipitor. 2. Calcium. 3. Gabapentin. 4. Glucosamine. 5. Toprol. 6. Norvasc. 7. Protonix. 8. Flomax. ALLERGIES: CEPHALEXIN and PENICILLIN. SOCIAL HISTORY: He is . 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 REVIEW OF SYSTEMS: Ten point review of systems performed and is negative except as above. PHYSICAL EXAMINATION: GENERAL: This is a well-developed, well-nourished man resting comfortably in bed without chest pain or shortness of breath on no drips. VITAL SIGNS: His heart rate is 72, blood pressure is 112/76, room air oxygen saturation is 96. HEENT: Sclerae nonicteric. Pupils equal, round bilaterally. NECK: Supple. He has bilateral soft carotid bruits. CHEST: Clear bilaterally. HEART: Rhythm is regular, without murmur. ABDOMEN: Soft and nontender, without mass. EXTREMITIES: There is no edema. VASCULAR: Palpable carotid, radial, femoral, and dorsalis pedis pulses bilaterally. VENOUS: There are no venous varicosities or venous stasis changes. PSYCHIATRIC: Patient is awake, alert, and oriented to person, place, and time. ASSESSMENT AND PLAN: This is a pleasant 86-year-old gentleman with severe 3-vessel disease and depre ssed left ventricular function. I discussed coronary artery bypass grafting with him and he is agree able to proceed. Risks, benefits, and options have been outlined. 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 His urinary tract appears to be wide open wit hout obstructive disease. We will repeat his carotid ultrasound tonight preoperatively. The remaind er of his laboratory workup appears to be in line.
[2017-05-15 13:32] LABS: PTT 29.5 SEC (22.9-36.1); Prothrombin Time 17.6 SEC (12.0-14.7)
[2017-05-15] MEDS: Sodium Chloride 0.9% 1,000 ML IV SCH ×3 (14:36→21:51)
[2017-05-15] MEDS: Nitroglycerin 2% Ointment 1 INCH/1 GM Packet TOP SCH ×2 (14:37→21:35)
--- NOTE | 2017-05-15 15:01 | HP ---
PRIMARY CARE PHYSICIAN: Dr. Espitia at [facility]. REASON FOR ADMISSION: Unstable angina. HISTORY OF PRESENT ILLNESS: An 86-year-old male who has a long history of coronary artery disease. About 10-15 years ago, he had unstable angina and required cardiac catheterization and stent placement. Subsequently, he was doing very well up until 2 years ago when he had a cardiac catheterization for angina and they were not able to find any blockage. Most recently, he was hospitalized in our hospital on 04/21/2017, at that time, patient had back surgery. During that admission, the patient developed non-ST elevation OK and patient was treated conservatively because of back surgery. No intervention was done. After that when Cardiology cleared at that time, patient was discharged to rehabilitation. Patient was not on Plavix because of back surgery for at least 3 weeks. After rehabilitation, the patient was again readmitted in our hospital for chest pain and shortness of breath on 05/11/2017 and he was evaluated by cardiology as well as neurosurgeon and he was discharged back home on 05/12/2016. Patient also developed dyspnea on exertion and orthopnea at that time to rehab placement, Lasix was started. Patient exactly presented similar way when he presented last time. He woke up with chest pain, which was substernal in location as if elephant seated on his chest and he took nitroglycerin first time and that relieved almost 50% pain and second nitroglycerin reduced his pain to 0. His pain was about 8/10 in intensity, which was radiated to left upper extremity as well as associated with shortness of breath, but nitroglycerin significantly helped. He was resting in his home and subsequently after 30 minutes, he had similar chest pain and the patient was taking nitroglycerin that was not helping his pain and paramedics also gave him nitrospray and that did not help and in the emergency room treatment also did not help. Subsequently, patient was given morphine sulfate and that reduced his pain. The patient denies any associated nausea, vomiting, diaphoresis, palpitations, dizziness, or syncope. This patient kept getting chest discomfort and that is why he was concerned about it and came back to the emergency room last night and he had indeterminate troponin, leukocytosis, but subsequently his troponin level was increased. At this point the patient is being admitted for non-ST elevation OK with unstable angina. ALLERGIES: CEPHALOSPORIN and PENICILLIN. CURRENT HOME MEDICATIONS: Aspirin 325 mg p.o. daily, Lipitor 20 mg p.o. daily, Lasix 40 mg p.o. daily, gabapentin 200 mg p.o. at bedtime, Imdur 30 mg p.o. daily, Toprol-XL 12.5 mg p.o. daily, multivitamin 1 capsule p.o. daily, nitroglycerin 0.4 mg as needed, potassium chloride 20 mEq p.o. daily. REVIEW OF SYSTEMS: Constitutional: Weight loss or gain, ability to conduct usual activities. Skin: Rash, itching. Eyes: Double vision, pain. ENT/Mouth: Nose bleeding, neck stiffness, pain, tenderness. Cardiovascular: Palpitations, dyspnea on exertion, orthopnea. Respiratory: Shortness of breath, wheezing, cough, hemoptysis, fever or night sweats. Gastrointestinal: Poor appetite, abdominal pain, heartburn, nausea, vomiting, constipation, or diarrhea. Genitourinary: Urgency, frequency, dysuria, nocturia. Musculoskeletal: Pain, swelling. Neurologic/Psychiatric: Anxiety, depression. Allergy/Immunologic: Skin rash, bleeding tendency. Please see my HPI for pertinent positives and negatives. All other review of systems reviewed and negative except as mentioned in the HPI. PAST MEDICAL HISTORY: History of non-ST elevation OK recently, history of lumbar spine surgery recently, history of coronary artery disease, required several cardiac catheterizations and stent placement, history of prostate cancer and required a prostatectomy, benign enlargement of prostate, hypertension, CKD stage 2. PAST SURGICAL HISTORY: History of carotid endarterectomy, back surgery, coronary catheterization with stent placement, cochlear implant, right shoulder surgery, prostatectomy. PAST PSYCHIATRIC HISTORY: Reviewed and negative. SOCIAL HISTORY: Patient is and lives at home with his . No history of tobacco, alcohol or illicit drug abuse. 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 FAMILY HISTORY: No strong family history of premature coronary artery disease, stroke or cancer. EMERGENCY ROOM COURSE: Patient was given GI cocktail, morphine sulfate 4 mg, nitroglycerin sublingual 3 tablets and nitro patch and aspirin 324 mg. PHYSICAL EXAMINATION: VITAL SIGNS: On arrival, blood pressure 149/98, pulse 68, respiratory rate 18, temperature 98.1, saturation 99% on room air, weight 83.4 kilograms. GENERAL: Patient is currently alert, awake, no obvious acute distress. HEENT: Normocephalic, atraumatic. Eyes: Pupils round, reactive to light. Extraocular muscle intact. ENT: Oropharynx within normal limits. Moist mucous membranes. No oral lesions. No pharyngeal erythema, no exudate. NECK: Supple, no JVD, no thyromegaly, no carotid bruits, no JVD. LUNGS: Clear to auscultation without any rhonchi or rales. CARDIAC: S1, S2 regular without any murmur. ABDOMEN: Soft, bowel sounds present, nontender, nondistended. No organomegaly , no mass, no suprapubic tenderness. BACK: Unremarkable, no CVA tenderness. EXTREMITIES: Upper extremity: Passive movement of all joints are normal. Lower extremities: No edema. Good peripheral pulsation. SKIN: No skin rash. HEMATOLOGICAL: No lymphadenopathy. NEUROLOGIC: Nonfocal examination. The patient moves all 4 limbs. Plantar bilateral flexor. PSYCHIATRIC: Normal affect. SIGNIFICANT LABS: EKG based on my review reveals normal sinus rhythm, left axis deviation, no changes from previous. Chest x-ray based on my review, no acute cardiopulmonary process. CBC: WBC 12.3, hemoglobin 13.5, platelet 251. INR 1.4. BMP: Sodium 138, potassium 4.3, chloride 101, carbon dioxide 24, anion gap 17, BUN 14, creatinine 1.18, glucose 117, calcium 10.2. LFT: AST 28, ALT 14, alkaline phosphatase 89, albumin 4.0, lipase 8. CK 46, CK-MB 1.2, troponin I 0.184, then 0.189 and then 0.704. ASSESSMENT AND PLAN: 1. Acute non-ST elevation myocardial infarction/unstable angina. This patient' s clinical history is consistent with unstable angina, now he has nonspecific ST -T changes in EKG and elevated troponin consistent with non-ST elevation myocardial infarction. We will keep him n.p.o. We will consult Cardiology. Patient will need cardiac catheterization and further decision, we will defer to Cardiology based on cardiac catheterization. Meanwhile, we will continue with aspirin 325 mg p.o. daily, nitro patch q.8 hourly. We will also add Ranexa 500 mg p.o. b.i.d. because suspected small microvascular problem. 2. Coronary artery disease with history of stent as mentioned in problem #1. We will continue aspirin, metoprolol, Lipitor therapy, nitro patch q.8 hourly. 3. Dyslipidemia. Continue Lipitor 20 mg p.o. at bedtime. 4. Chronic low back pain. We will continue gabapentin 200 mg p.o. at bedtime. 5. Deep venous thrombosis prophylaxis. Lovenox 40 mg subcutaneously daily. 6. Gastrointestinal prophylaxis. Pepcid 20 mg p.o. b.i.d. 7. Code status: The patient is FULL CODE. The patient's is surrogate decision maker. 8. Chronic diastolic heart failure: currently stable and compensated, continue oral lasix. Disposition plan based on clinical course. We are expecting patient's stay in hospital more than 2 midnights. Plan of care discussed with the patient and patient's at bedside in detail. LINDAD
[2017-05-15] MEDS: Mag-Al 1200 mg/1200 mg/30 ML UDCUP PO PRN (15:40)
[2017-05-15] MEDS ORDERED: Iopamidol 370 76% 100 ML VIAL ONE (17:31)
[2017-05-15] MEDS: Nitroglycerin 0.4 MG TAB (25 Tab Bottle) SL PRN ×3 (19:10→23:50)
[2017-05-15] MEDS ORDERED: Gabapentin 100 MG CAP PO SCH (21:00)
[2017-05-15] MEDS: Famotidine 20 MG TAB PO SCH (21:51)
--- NOTE | 2017-05-15 23:55 | ULT ---
CAROTID DUPLEX SONOGRAM: 05/15/17 HISTORY: CVA. Vascular disease. FINDINGS: RIGHT: Mild plaque is present. Color and spectral doppler evaluation, peak systolic velocity of 87 cm/s, and IC to CCA ratio of 1.2 suggests no hemodynamically significant stenosis within the extracranial righ t ICA. Antegrade flow is present within the vertebral artery. LEFT: Mild plaque is present. Color and spectral doppler evaluation, peak systolic velocity of 84 cm/s, and IC to CCA ratio of 1.0 suggests no hemodynamically significant stenosis within the extracranial left ICA. Antegrade flow is present within the vertebral artery. IMPRESSION: Atherosclerosis. There is no sonographic evidence of significant extracranial ICA stenosis. POS: [facility]
[2017-05-16] MEDS: Mag-Al 1200 mg/1200 mg/30 ML UDCUP PO PRN (01:05)
[2017-05-16 01:18] VITALS: BMI 27.2
[2017-05-16 04:46] LABS: #Eosinphils 0.3 thou/uL (0.0-0.7); #Lymphocytes 2.2 thou/uL (1.20-3.40); #Monocytes 1.1 thou/uL (0.11-0.59); #Neutrophils 5.5 thou/uL (1.40-6.50); %Basophils 0.4 % (0.0-1.0); %Eosinophils 3.6 % (0.0-10.0); %Lymphocytes 24.3 % (21.0-51.0); %Monocytes 11.7 % (0.0-10.0); Hematocrit 37.3 % (42.0-52.0); Mean Platelet Volume 7.7 fL (7.4-10.4); Red Blood Cell (RBC) Count 3.75 mill/uL (4.70-6.10); White Blood Cell (WBC) Count 9.2 thou/uL (4.8-10.8)
[2017-05-16 05:05] LABS: Anion Gap 8 mmol/L (10-20); BUN (Urea Nitrogen) 13 mg/dL (8.4-25.7); Calc. Creatinine Clearance 64 mL/min (70-130); Calcium 8.8 mg/dL (7.8-10.44); Carbon Dioxide 27 mmol/L (23-31); Chloride 105 mmol/L (98-107); Cholesterol 103 mg/dl (< 200 Desired); Estimated GFR-MDRD 73; LDL Cholesterol, Calculated 59 mg/dL
[2017-05-16] MEDS: Nitroglycerin 0.4 MG TAB (25 Tab Bottle) SL PRN ×2 (05:21→06:13)
[2017-05-16] MEDS: Sodium Chloride 0.9% 1,000 ML IV SCH (05:24)
[2017-05-16] MEDS ORDERED: Vancomycin HCl 1.25 GM in Sodium Chloride 0.9% 250 ML 250 ML IVPB SCH (07:00)
[2017-05-16] MEDS: Nitroglycerin 2% Ointment 1 INCH/1 GM Packet TOP SCH (07:03)
[2017-05-16] MEDS ORDERED: Heparin 10,000 UNITS/1 ML VIAL 30,000 UNITS, Admixture Fee 1 EACH in Sodium Chloride 0.... IVPB SCH (07:30)
[2017-05-16] MEDS ORDERED: Fentanyl 250 MCG/5 ML VIAL ONE (07:35)
[2017-05-16] MEDS ORDERED: Milrinone 10 MG/10 ML VIAL ONE ×2 (07:36→17:12)
[2017-05-16] MEDS ORDERED: Norepinephrine 8 MG/0.9% NS 250 ML ONE (07:36)
[2017-05-16] MEDS ORDERED: Vecuronium 10 MG VIAL ONE ×2 (07:36→17:12)
[2017-05-16] MEDS ORDERED: Midazolam HCl 5 mg/5 ml Vial ONE (07:36)
--- NOTE | 2017-05-16 11:32 | PDOC.PN ---
- Subjective Encounter Start Date: 05/16/17 Encounter Start Time: 06:00 -: old records requested/rev Patient seen and examined. No new complaints. No overnight events - Objective MAR Reviewed: Yes Vital Signs & Weight: Vital Signs (12 hours) Temp 05/16/17 07:00 98.5 F 05/16/17 04:00 97.6 F 05/15/17 23:57 97.8 F Weight Weight 190 lb 7.67 oz Most Recent Monitor Data Heart Rate from ECG 69 NIBP 116/61 NIBP BP-Mean 67 Respiration from ECG 16 SpO2 98 I&O: 05/15/17 05/16/17 05/17/17 06:59 06:59 06:59 Intake Total 2298 45 Output Total 2030 0 Balance 268 45 Result Diagrams: 05/16/17 03:55 05/16/17 03:55 Additional Labs: Accuchecks 05/16/17 05/16/17 05/16/17 11:18 10:13 09:45 POC Glucose 150 H 122 H 127 H 05/16/17 08:52 POC Glucose 125 H Radiology Reviewed by me: Yes (carotid us) EKG Reviewed by me: Yes (nsr) Phys Exam - Physical Examination Constitutional: NAD HEENT: PERRLA, moist MMs, sclera anicteric Neck: no JVD, supple Respiratory: no wheezing, no rales, no rhonchi Cardiovascular: RRR, no significant murmur, no rub Gastrointestinal: soft, non-tender, no distention, positive bowel sounds Musculoskeletal: no edema, pulses present Neurological: non-focal, normal sensation Lymphatic: no nodes Psychiatric: normal affect Skin: no rash, normal turgor Dx/Plan (1) NSTEMI (non-ST elevated myocardial infarction) Code(s): I21.4 - NON-ST ELEVATION (NSTEMI) MYOCARDIAL INFARCTION Status: Acute (2) BPH (benign prostatic hyperplasia) Code(s): N40.0 - BENIGN PROSTATIC HYPERPLASIA WITHOUT LOWER URINRY TRACT SYMP Status: Chronic Comment: (3) CAD (coronary artery disease) Code(s): I25.10 - ATHSCL HEART DISEASE OF [place] CORONARY ARTERY W/O ANG PCTRS Status: Chronic Comment: (4) CKD (chronic kidney disease) stage 2, GFR 60-89 ml/min Code(s): N18.2 - CHRONIC KIDNEY DISEASE, STAGE 2 (MILD) Status: Chronic (5) Chronic anemia Code(s): D64.9 - ANEMIA, UNSPECIFIED Status: Chronic (6) Chronic diastolic heart failure Code(s): I50.32 - CHRONIC DIASTOLIC (CONGESTIVE) HEART FAILURE Status: Chronic (7) H/O prostate cancer Code(s): Z85.46 - PERSONAL HISTORY OF MALIGNANT NEOPLASM OF PROSTATE Status: Chronic (8) HTN (hypertension) Code(s): I10 - ESSENTIAL (PRIMARY) HYPERTENSION Status: Chronic Comment: - Plan cont current plan of care * today plan for CABG * after CABG follow CT surgeon treatment protocol after CABG * will monitor * medication reviewed as below * symptomatic treatment. Review of Systems - Review of Systems ENT: negative: Ear Pain, Ear Discharge, Nose Pain, Nose Discharge, Nose Congestion, Mouth Pain, Mouth Swelling, Throat Pain, Throat Swelling, Other Respiratory: negative: Cough, Dry, Shortness of Breath, Hemoptysis, SOB with Excertion, Pleuritic Pain, Sputum, Wheezing Cardiovascular: negative: Chest Pain, Palpitations, Orthopnea, Paroxysmal Noc. Dyspnea, Edema, Light Headedness, Other Gastrointestinal: negative: Nausea, Vomiting, Abdominal Pain, Diarrhea, Constipation, Melena, Hematochezia, Other Genitourinary: negative: Dysuria, Frequency, Incontinence, Hematuria, Retention , Other Musculoskeletal: negative: Neck Pain, Shoulder Pain, Arm Pain, Back Pain, Hand Pain, Leg Pain, Foot Pain, Other - Medications/Allergies Allergies/Adverse Reactions: Allergies Allergy/AdvReac Type Severity Reaction Status Date / Time Cephalosporins Allergy hives, Verified 04/20/17 11:04 urticaria Penicillins Allergy hives, Verified 04/20/17 11:04 urticaria Medications: Current Medications Famotidine (Pepcid) 20 mg PO BID [facility] Last Admin: 05/15/17 21:51 Dose: 20 mg Levofloxacin 750 mg/ Device 150 mls @ 100 mls/hr IVPB Q24HR YOEL Last Admin: 05/16/17 07:10 Dose: 150 mls Heparin Sodium (Porcine) 30, 000 units/ Miscellaneous Medication 1 each/ Sodium Chloride 1,003 mls @ 0 mls/hr IVPB INF [facility]OEL PRN Reason: As Directed
[2017-05-16] MEDS ORDERED: Potassium Chloride 20 MEQ/100 ML PREMIX BAG IVPB PRN (11:57)
[2017-05-16] MEDS ORDERED: Hetastarch 6% 500 ML 500 ML IVPB PRN (11:57)
[2017-05-16] MEDS ORDERED: HYDROcodone/Acetaminophen 5/325 mg Tablet PO PRN ×2 (11:57)
[2017-05-16] MEDS ORDERED: DOPamine 400 MG/D5W 250 ML 250 ML IVPB PRN (11:57)
[2017-05-16] MEDS ORDERED: Promethazine HCl 25 MG/ML VIAL IM PRN (11:57)
[2017-05-16] MEDS ORDERED: Bisacodyl 10 MG SUPP PR PRN (11:57)
[2017-05-16] MEDS ORDERED: Bisacodyl 5 MG TAB PO PRN (11:57)
[2017-05-16] MEDS ORDERED: D5 1/2 NS w/20 mEq KCL 1,000 ML IV SCH (11:57)
[2017-05-16] MEDS ORDERED: Mag-Al 1200 mg/1200 mg/30 ML UDCUP PO PRN (11:57)
[2017-05-16] MEDS ORDERED: Guaifenesin DM 100-10/5 ML UDCUP PO PRN (11:57)
[2017-05-16] MEDS ORDERED: Norepinephrine 8 MG/0.9% NS 250 ML IVPB PRN (11:57)
[2017-05-16] MEDS ORDERED: Fentanyl 100 MCG/2 ML VIAL SLOW IVP PRN ×2 (11:57)
[2017-05-16] MEDS ORDERED: Nitroglycerin 50 MG/250 ML BOT 250 ML IVPB PRN (11:57)
[2017-05-16] MEDS ORDERED: hydrALAZINE 20 MG/ML VIAL SLOW IVP PRN (11:57)
[2017-05-16] MEDS ORDERED: Post-Op Insulin Drip Protocol IVPB ONE (11:57)
[2017-05-16] MEDS ORDERED: Acetaminophen 325 MG TAB PO PRN (11:57)
[2017-05-16] MEDS ORDERED: Ondansetron HCl/PF 4 MG/2 ML Vial IVP PRN (11:57)
[2017-05-16] MEDS ORDERED: Dextrose 5% in Water 1,000 ML IV PRN (12:00)
[2017-05-16] MEDS ORDERED: Dextrose 50% Abboject 50 ML SYRINGE SLOW IVP PRN (12:00)
[2017-05-16] MEDS ORDERED: Insulin Regular 300 UNITS/3 ML VIAL SC PRN (12:00)
[2017-05-16] MEDS ORDERED: Morphine PF 1 MG/ML SYR IVP PRN (12:13)
[2017-05-16] MEDS ORDERED: EPINEPHrine 1 MG, Admixture Fee 1 EACH in Dextrose 5% in Water 250 ML IVPB SCH ×3 (12:15)
[2017-05-16] MEDS ORDERED: Magnesium 2 GM/NS 0.9% 100 ML 2 GM in Premix Bag 1 BAG IVPB SCH (12:15)
[2017-05-16 12:28] LABS: PTT 35.5 SEC (22.9-36.1); Prothrombin Time 22.6 SEC (12.0-14.7)
[2017-05-16 12:37] LABS: Anion Gap 14 mmol/L (10-20); BUN (Urea Nitrogen) 12 mg/dL (8.4-25.7); Calc. Creatinine Clearance 70 mL/min (70-130); Calcium 7.9 mg/dL (7.8-10.44); Carbon Dioxide 18 mmol/L (23-31); Chloride 109 mmol/L (98-107); Estimated GFR-MDRD 81
[2017-05-16] MEDS: Ketorolac Tromethamine 30 MG/ML VIAL IVP SCH ×3 (12:40→23:00)
[2017-05-16 12:41] LABS: Mechanical Tidal Volume 600 ml; Mode SIMV/PSV; Modified Allen's Test NOT DONE; Oxyhemoglobin 94.9 % (94.0-97.0); Pressure Support 10 cmH2O; Sodium 137 mmol/L (135-148); Vent YES
[2017-05-16 13:19] LABS: Band 4 % (5-11); Hematocrit 35.9 % (42.0-52.0); Mean Platelet Volume 7.9 fL (7.4-10.4); Neutrophil 77 % (42-75); Red Blood Cell (RBC) Count 3.57 mill/uL (4.70-6.10); White Blood Cell (WBC) Count 32.3 thou/uL (4.8-10.8)
--- NOTE | 2017-05-16 15:45 | RAD ---
PORTABLE SUPINE FRONTAL CHEST RADIOGRAPH 05/16/17 COMPARISON: 05/15/17 HISTORY: Evaluate chest following open heart surgery. FINDINGS: Endotracheal tube in place, terminating at the level of the clavicular heads. There is a right vascul ar catheter, distal tip overlying the region of the cavoatrial junction. Surgical drains overlie the left hilum and midline mediastinum. There is dense opacity in the left base suggesting comminution of the left lower lobe consolidation/collapse and small volume left pleural fluid. Midline sternotomy w ires and mediastinal clips are present. IMPRESSION: Lines and tubes as detailed above. Increased density in the left lung base, nonspecific. POS: [facility]
--- NOTE | 2017-05-16 16:02 | PDOC.CTH ---
Cardiology Progress Note - Subjective He just had CABG earlier today.l Currently he remains sedated and intubated. Off pressor or inotrope support. - Objective Vital Signs Temp Pulse Resp BP Pulse Ox 05/16/17 15:04 92 104/45 L 05/16/17 15:00 98.6 F 05/16/17 13:52 98.5 F 12 05/16/17 12:59 98.2 F 85 12 100 05/16/17 12:53 98.2 F 05/16/17 12:13 106 H 119/47 L 05/16/17 07:00 98.5 F Weight 190 lb 7.67 oz 05/15/17 05/16/17 05/17/17 06:59 06:59 06:59 Intake Total 2298 645 Output Total 5660 360 Balance 268 285 - Physical Examination General/Neuro: other: (Sedated, intubated) Neck: no JVD present Lungs: unlabored respirations, other: (Coarse breath sounds. ) Heart: RRR Abdomen: NT/ND Extremities: + edema B (1+) - Telemetry Telemetry Rhythm: NSR - Labs Result Diagrams: 05/16/17 12:44 05/16/17 12:11 Troponin/CKMB CK-MB (CK-2) 1.2 ng/mL (0-6.6) 05/15/17 04:08 Troponin I 0.704 ng/mL (< 0.028) H* 05/15/17 10:00 - Assessment/Plan 1. Multivessel CAD 2. S/P CABG. PLAN: - Continue supportive care. - Aspirin and statin for life - BB and ACEI once BP allows.
--- NOTE | 2017-05-16 16:42 | OP ---
DATE OF OPERATION: 05/16/2017 PREOPERATIVE DIAGNOSES: Coronary artery disease/status post-non ST elevation myocardial infarction/h ypertension/hyperlipidemia. POSTOPERATIVE DIAGNOSES: Coronary artery disease/status post-non ST elevation myocardial infarction/ hypertension/hyperlipidemia. PROCEDURE PERFORMED: Coronary artery bypass grafting x3: 1. Left internal mammary artery to 1.25 mm distal LAD -- good conduit and target. 2. Reversed saphenous vein to 2.5 mm OM -- good conduit and target. 3. Reversed saphenous vein to 1.25 mm posterolateral branch -- good conduit with diffusely diseased target. SURGEON: Stoney Swartz M.D. ANESTHESIA: General endotracheal, Dr. Nirav Graves. PUMP TIME: 60 minutes. CROSS-CLAMP TIME: 37 minutes. LOW CORE TEMPERATURE: 32 degrees Celsius. HOG CUTTER: Agnes Harman. DRAINS: 24-[place] chest tubes x2. DRIPS: Levophed and dopamine. TRANSFUSIONS: None. DESCRIPTION OF PROCEDURE: After consent was obtained, the patient was brought to the operating room and placed in the supine position on the operating room table. Appropriate anesthetic monitor was pl aced and general endotracheal anesthesia induced. Chest, abdomen, and legs were prepped and draped i n usual sterile fashion. Greater saphenous vein was harvested using endoscopic technique from the [facility] thigh. The wound was irrigated and closed in layers. Median sternotomy was performed. Left int ernal mammary artery was harvested as a pedicle graft. The patient was systemically heparinized. Di stal pedicle was divided and infused with papaverine. Thymic fat and pericardium were divided with e lectrocautery. Pericardial stay sutures were placed. Aortic and atrial cannulation was performed. After adequate heparinization, the patient was placed on cardiopulmonary bypass. Distal targets were marked. Aortic cross-clamp was applied and antegrade sanguinous cardioplegic arrest obtained. One liter of antegrade cold cardioplegia was given. Topical cold solution was used. Reversed saphenous vein was anastomosed to the posterolateral branch in end-to-side fashion with running 7-0 Prolene sut ure. Anastomosis was tested and was hemostatic. Reversed saphenous vein was anastomosed to the OM i n end-to-side fashion with running 7-0 Prolene suture. Anastomosis was tested and was hemostatic. M ammary artery was brought through a window in the pericardium and anastomosed to the LAD in end-to-si de fashion with running 7-0 Prolene suture. On release of the mammary clamp, there was good hooding in the anastomosis and good distal flow. Pedicle was secured with interrupted 6-0 Prolene sutures. Cross-clamp was removed and partial occluding clamp placed. Saphenous veins were anastomosed individ ual punch sites with running 6-0 Prolene suture. Partial occluding clamp was removed and grafts deai red. Anastomoses were inspected for hemostasis, which was good. The patient was warmed and weaned f rom cardiopulmonary bypass. After resumption of sinus rhythm, good hemodynamics, and temperature gre ater than 36.5, bypass was discontinued. Transfusions were given. Decannulation was performed and p ursestring sutures secured. Protamine was administered. Hemostasis was again ensured within the med iastinum. Vancomycin paste was placed on the sternal edges. A 24-[place] chest tubes x2 were placed in the mediastinum. Sternum was closed with #7 wire. Sternum was treated with platelet-rich plasma and wires twisted. Wounds were irrigated, treated with platelet-poor plasma, and closed in multiple layers. The patient tolerated the procedure well and was transferred to the intensive care unit in s table, but critical condition. Needle, sponge, and instrument counts were all reported correct at th e end of the procedure.
[2017-05-16] MEDS ORDERED: Aminocaproic Acid 5 GM/20 ML VIAL ONE (17:12)
[2017-05-16] MEDS ORDERED: Heparin 30,000 units/30 ml VIAL ONE (17:12)
[2017-05-16] MEDS ORDERED: Propofol 200 MG/20 ML VIAL ONE (17:12)
[2017-05-16] MEDS ORDERED: Lidocaine 1% PF 5 ML VIAL ONE (17:12)
[2017-05-16] MEDS ORDERED: Protamine Sulfate 250 MG/25 ML VIAL ONE (17:12)
[2017-05-16] MEDS: Vancomycin HCl 1.5 GM in Sodium Chloride 0.9% 250 ML 300 ML IVPB SCH (18:01)
[2017-05-16 18:08] LABS: Hematocrit 27.5 % (42.0-52.0)
[2017-05-16] MEDS: Famotidine 20 MG TAB PO SCH (19:57)
[2017-05-16] MEDS: Famotidine/PF 20 mg/2ml Vial SLOW IVP SCH (20:01)
[2017-05-16 20:05] LABS: Oxyhemoglobin 96.8 % (94.0-97.0); Sodium 138 mmol/L (135-148)
[2017-05-16 20:14] LABS: Mode CPAP; Pressure Support 10 cmH2O; Vent YES
[2017-05-17 04:34] LABS: #Eosinphils 0.1 thou/uL (0.0-0.7); #Lymphocytes 1.3 thou/uL (1.20-3.40); #Monocytes 1.3 thou/uL (0.11-0.59); #Neutrophils 7.5 thou/uL (1.40-6.50); %Basophils 0.3 % (0.0-1.0); %Eosinophils 0.6 % (0.0-10.0); %Lymphocytes 12.9 % (21.0-51.0); %Monocytes 12.8 % (0.0-10.0); Hematocrit 27.8 % (42.0-52.0); Mean Platelet Volume 8.1 fL (7.4-10.4); Red Blood Cell (RBC) Count 2.78 mill/uL (4.70-6.10); White Blood Cell (WBC) Count 10.3 thou/uL (4.8-10.8)
[2017-05-17 04:54] LABS: Anion Gap 9 mmol/L (10-20); BUN (Urea Nitrogen) 17 mg/dL (8.4-25.7); Calc. Creatinine Clearance 50 mL/min (70-130); Calcium 8.2 mg/dL (7.8-10.44); Carbon Dioxide 20 mmol/L (23-31); Chloride 110 mmol/L (98-107); Estimated GFR-MDRD 54
[2017-05-17] MEDS: Ketorolac Tromethamine 30 MG/ML VIAL IVP SCH (05:01)
[2017-05-17] MEDS: Vancomycin HCl 1.5 GM in Sodium Chloride 0.9% 250 ML 300 ML IVPB SCH (06:38)
[2017-05-17] MEDS: Famotidine/PF 20 mg/2ml Vial SLOW IVP SCH (08:30)
[2017-05-17] MEDS ORDERED: Magnesium 2 GM/NS 0.9% 100 ML 2 GM in Premix Bag 1 BAG IVPB SCH (09:00)
[2017-05-17] MEDS ORDERED: Aspirin 325 MG TAB PO SCH (09:00)
--- NOTE | 2017-05-17 09:20 | RAD ---
PORTABLE AP CHEST XRAY: DATE: 05/17/17. HISTORY: Post op heart surgery. COMPARISON: 05/16/17. FINDINGS: The endotracheal tube has been removed. Mediastinal drain and left-sided thoracostomy tube as well a s right subclavian central venous catheter are stable in position. Surgical changes related to media n sternotomy are again present. Cardiac silhouette is enlarged. There is atelectasis present at the right lung base. Again noted is opacity in the retrocardiac region at the left lung base which may be related to atelectasis and par tial collapse of the left lower lobe in addition to a tiny left pleural effusion. Followup evaluatio n is recommended. Postsurgical changes of the right shoulder are again present. No other interval c hange. IMPRESSION: 1. Interval removal of endotracheal tube. 2. Pleural and parenchymal changes left lung base probably related to atelectasis and tiny left pleu ral effusion. Continued followup to resolution is recommended. 3. Cardiomegaly. 5. Atelectasis right lung base. POS: [facility]
[2017-05-17] MEDS ORDERED: Mineral Oil ENEMA PR PRN (11:54)
[2017-05-17] MEDS ORDERED: Acetaminophen 325 MG TAB PO PRN (11:54)
[2017-05-17] MEDS ORDERED: Zolpidem Tartrate 5 MG TAB PO PRN (11:54)
[2017-05-17] MEDS ORDERED: Fentanyl 100 MCG/2 ML VIAL SLOW IVP PRN (11:54)
[2017-05-17] MEDS ORDERED: Artificial Tears 18 DROP/0.9 ML EA EYE PRN (11:54)
[2017-05-17] MEDS ORDERED: Ondansetron HCl/PF 4 MG/2 ML Vial IVP PRN (11:54)
[2017-05-17] MEDS ORDERED: Mag-Al 1200 mg/1200 mg/30 ML UDCUP PO PRN (11:54)
[2017-05-17] MEDS ORDERED: HYDROcodone/Acetaminophen 5/325 mg Tablet PO PRN (11:54)
[2017-05-17] MEDS ORDERED: Guaifenesin DM 100-10/5 ML UDCUP PO PRN (11:54)
[2017-05-17] MEDS ORDERED: diphenhydrAMINE 25 MG CAP PO PRN (11:54)
[2017-05-17] MEDS ORDERED: Nitroglycerin 0.4 MG TAB 1 EACH SL PRN (11:54)
[2017-05-17] MEDS ORDERED: Milk Of Magnesia 30 ML UDCUP PO PRN (11:54)
[2017-05-17] MEDS ORDERED: Bisacodyl 5 MG TAB PO PRN (11:54)
[2017-05-17] MEDS ORDERED: Bisacodyl 10 MG SUPP PR PRN (11:54)
--- NOTE | 2017-05-17 12:14 | PDOC.PN ---
- Subjective Encounter Start Date: 05/17/17 Encounter Start Time: 07:55 pst CABG day 1, doing well, Patient seen and examined. No overnight events - Objective MAR Reviewed: Yes Vital Signs & Weight: Vital Signs (12 hours) Temp Pulse Pulse BP BP 05/17/17 10:15 58 L 58 L 94/39 L 100/44 L 05/17/17 08:00 98.3 F 05/17/17 03:00 97.8 F Weight Weight 202 lb 13.204 oz Most Recent Monitor Data Heart Rate from ECG 59 NIBP 91/44 NIBP BP-Mean 55 Respiration from ECG 1 SpO2 97 I&O: 05/16/17 05/17/17 05/18/17 06:59 06:59 06:59 Intake Total 2298 3380 579.8 Output Total 2030 1104 65 Balance 268 2276 514.8 Result Diagrams: 05/17/17 03:59 05/17/17 03:59 Additional Labs: Accuchecks 05/17/17 05/17/17 05/17/17 08:28 07:21 06:06 POC Glucose 114 H 126 H 144 H 05/17/17 05/17/17 05/17/17 05:07 04:05 03:06 POC Glucose 148 H 140 H 134 H 05/17/17 05/17/17 05/17/17 02:02 01:11 00:02 POC Glucose 128 H 129 H 129 H 05/16/17 05/16/17 05/16/17 23:04 22:03 21:04 POC Glucose 119 H 133 H 117 H 05/16/17 05/16/17 05/16/17 20:05 19:13 17:52 POC Glucose 120 H 126 H 108 05/16/17 05/16/17 05/16/17 16:47 15:54 15:01 POC Glucose 131 H 145 H 138 H 05/16/17 05/16/17 05/16/17 13:51 12:53 12:13 POC Glucose 142 H 153 H 165 H Radiology Reviewed by me: Yes (Chest xray) EKG Reviewed by me: Yes (NSR) Phys Exam - Physical Examination Constitutional: NAD HEENT: PERRLA, moist MMs, sclera anicteric Neck: no JVD, supple Respiratory: no wheezing, no rales, no rhonchi surgical site clean Cardiovascular: RRR, no significant murmur, no rub Gastrointestinal: soft, non-tender, no distention, positive bowel sounds Musculoskeletal: no edema, pulses present Neurological: non-focal, normal sensation, moves all 4 limbs Psychiatric: normal affect, A&O x 3 Skin: no rash, normal turgor Dx/Plan (1) NSTEMI (non-ST elevated myocardial infarction) Code(s): I21.4 - NON-ST ELEVATION (NSTEMI) MYOCARDIAL INFARCTION Status: Acute (2) BPH (benign prostatic hyperplasia) Code(s): N40.0 - BENIGN PROSTATIC HYPERPLASIA WITHOUT LOWER URINRY TRACT SYMP Status: Chronic Comment: (3) CAD (coronary artery disease) Code(s): I25.10 - ATHSCL HEART DISEASE OF [place] CORONARY ARTERY W/O ANG PCTRS Status: Chronic Comment: (4) CKD (chronic kidney disease) stage 2, GFR 60-89 ml/min Code(s): N18.2 - CHRONIC KIDNEY DISEASE, STAGE 2 (MILD) Status: Chronic (5) Chronic anemia Code(s): D64.9 - ANEMIA, UNSPECIFIED Status: Chronic (6) Chronic diastolic heart failure Code(s): I50.32 - CHRONIC DIASTOLIC (CONGESTIVE) HEART FAILURE Status: Chronic (7) H/O prostate cancer Code(s): Z85.46 - PERSONAL HISTORY OF MALIGNANT NEOPLASM OF PROSTATE Status: Chronic (8) HTN (hypertension) Code(s): I10 - ESSENTIAL (PRIMARY) HYPERTENSION Status: Chronic Comment: (9) Postoperative anemia due to acute blood loss Code(s): D62 - ACUTE POSTHEMORRHAGIC ANEMIA Status: Acute (10) S/P CABG x 3 Code(s): Z95.1 - PRESENCE OF AORTOCORONARY BYPASS GRAFT Status: Acute - Plan cont current plan of care * contineu post CABG protocol treatment as per CT surgeon * cardiology following * medication reviewed as below * symptomatic treatment * stable. Review of Systems - Review of Systems Constitutional: negative: Fever, Chills, Sweats, Weakness, Malaise, Other ENT: negative: Ear Pain, Ear Discharge, Nose Pain, Nose Discharge, Nose Congestion, Mouth Pain, Mouth Swelling, Throat Pain, Throat Swelling, Other Respiratory: negative: Cough, Dry, Shortness of Breath, Hemoptysis, SOB with Excertion, Pleuritic Pain, Sputum, Wheezing Cardiovascular: negative: Chest Pain, Palpitations, Orthopnea, Paroxysmal Noc. Dyspnea, Edema, Light Headedness, Other Gastrointestinal: negative: Nausea, Vomiting, Abdominal Pain, Diarrhea, Constipation, Melena, Hematochezia, Other Genitourinary: negative: Dysuria, Frequency, Incontinence, Hematuria, Retention , Other Musculoskeletal: negative: Neck Pain, Shoulder Pain, Arm Pain, Back Pain, Hand Pain, Leg Pain, Foot Pain, Other Skin: negative: Rash, Lesions, Donald, Bruising, Other - Medications/Allergies Allergies/Adverse Reactions: Allergies Allergy/AdvReac Type Severity Reaction Status Date / Time Cephalosporins Allergy hives, Verified 04/20/17 11:04 urticaria Penicillins Allergy hives, Verified 04/20/17 11:04 urticaria Medications: Current Medications Acetaminophen (Tylenol) 650 mg PO Q6H PRN PRN Reason: Headache/Fever or Pain Hydrocodone Bitart/Acetaminophen ([place] 5/325) 1 tab PO Q4H PRN PRN Reason: Moderate Pain (4-6) Hydrocodone Bitart/Acetaminophen ([place] 5/325) 2 tab PO Q4H PRN PRN Reason: Severe Pain (7-10) Al Hydroxide/Mg Hydroxide (Maalox) 30 ml PO Q4H PRN PRN Reason: Indigestion Albuterol/Ipratropium (Duoneb) 3 ml NEB [id number] PRN PRN Reason: Respiratory Distress Artificial Tears (Tears Naturale) 0 drop EA EYE PRN PRN PRN Reason: Dry Eyes Aspirin (Aspirin) 325 mg PO DAILY [facility] Aspirin (Ecotrin) 325 mg PO DAILY [facility] Bisacodyl (Dulcolax) 10 mg PO Q12H PRN PRN Reason: Constipation Bisacodyl (Dulcolax) [address] Q12H PRN PRN Reason: Constipation Carvedilol (Coreg) 3.125 mg PO BID [facility] Diphenhydramine HCl (Benadryl) 25 mg PO Q6H PRN PRN Reason: Itching & Insomnia or Sudeep Pawel Famotidine (Pepcid) 20 mg PO BID [facility] Fentanyl (Sublimaze) 25 mcg SLOW IVP Q2H PRN PRN Reason: Moderate breakthrough pain Furosemide (Lasix) 20 mg PO DAILY [facility] Guaifenesin/Dextromethorphan (Robitussin Dm) 15 ml PO Q4H PRN PRN Reason: Cough Magnesium Sulfate 2 gm/ Device 100 mls @ 100 mls/hr IVPB QAM [facility] Magnesium Hydroxide (Milk Of Magnesium) 30 ml PO Q12H PRN PRN Reason: Constipation Mineral Oil (Fleet Mineral Oil) [address] DAILYPRN PRN PRN Reason: Constipation Nitroglycerin (Nitrostat) 0.4 mg SL Q5MIN PRN PRN Reason: Chest Pain Ondansetron HCl (Zofran) 4 mg IVP Q6H PRN PRN Reason: Nausea/Vomiting Potassium Chloride (Klor-Con 10) 10 meq PO QAM-WM [facility] Simvastatin (Zocor) 40 mg PO HS [facility] Sodium Chloride (Flush - Normal Saline) 10 ml IVF PRN PRN PRN Reason: Saline Flush Zolpidem Tartrate (Ambien) 5 mg PO HSPRN PRN PRN Reason: Insomnia
--- NOTE | 2017-05-17 15:32 | PDOC.CTH ---
Cardiology Progress Note - Subjective Feels much better now that chest tubes are out. No other issues. Has started to walk with PT. - Objective Vital Signs Temp Pulse Pulse Pulse Resp BP BP 05/17/17 14:29 97.8 F 61 16 05/17/17 14:20 97.8 F 61 16 05/17/17 13:10 60 59 L 92/43 L 98/45 L 05/17/17 12:00 05/17/17 10:15 58 L 58 L 94/39 L 100/44 L 05/17/17 08:00 98.3 F 58 L 16 BP Pulse Ox 05/17/17 14:29 92 L 05/17/17 14:20 105/51 L 92 L 05/17/17 13:10 05/17/17 12:00 98 05/17/17 10:15 05/17/17 08:00 98 Weight 202 lb 13.204 oz 05/16/17 05/17/17 05/18/17 06:59 06:59 06:59 Intake Total 2298 3380 579.8 Output Total 2030 1104 65 Balance 268 2276 514.8 - Physical Examination General/Neuro: alert & oriented x3, NAD Neck: no JVD present Lungs: unlabored respirations Heart: RRR Abdomen: NT/ND Extremities: + edema B (1+) - Telemetry Telemetry Rhythm: NSR - Labs Result Diagrams: 05/17/17 03:59 05/17/17 03:59 Troponin/CKMB CK-MB (CK-2) 1.2 ng/mL (0-6.6) 05/15/17 04:08 Troponin I 0.704 ng/mL (< 0.028) H* 05/15/17 10:00 - Assessment/Plan 1. Multivessel CAD 2. S/P CABG. PLAN: - Continue supportive care. - Aspirin and statin, BB. - ACEI once BP allows. - Continue to increase PT as tolerated.
[2017-05-17] MEDS: HYDROcodone/Acetaminophen 5/325 mg Tablet PO PRN ×2 (18:32→23:27)
[2017-05-17] MEDS: Carvedilol 3.125 MG TAB PO SCH (20:46)
[2017-05-17] MEDS: Famotidine 20 MG TAB PO SCH (20:47)
[2017-05-17] MEDS: Atorvastatin Calcium 20 MG TAB PO SCH (20:47)
[2017-05-18 05:21] LABS: #Eosinphils 0.5 thou/uL (0.0-0.7); #Lymphocytes 1.8 thou/uL (1.20-3.40); #Monocytes 1.5 thou/uL (0.11-0.59); #Neutrophils 7.8 thou/uL (1.40-6.50); %Basophils 0.4 % (0.0-1.0); %Eosinophils 4.3 % (0.0-10.0); %Lymphocytes 15.3 % (21.0-51.0); %Monocytes 12.9 % (0.0-10.0); Hematocrit 28.4 % (42.0-52.0); Mean Platelet Volume 8.7 fL (7.4-10.4); Red Blood Cell (RBC) Count 2.82 mill/uL (4.70-6.10); White Blood Cell (WBC) Count 11.6 thou/uL (4.8-10.8)
[2017-05-18 05:49] LABS: Anion Gap 11 mmol/L (10-20); BUN (Urea Nitrogen) 26 mg/dL (8.4-25.7); Calc. Creatinine Clearance 31 mL/min (70-130); Calcium 8.6 mg/dL (7.8-10.44); Carbon Dioxide 20 mmol/L (23-31); Chloride 107 mmol/L (98-107); Estimated GFR-MDRD 29
[2017-05-18] MEDS ORDERED: Potassium Chloride 10 MEQ TAB PO SCH (08:00)
[2017-05-18] MEDS ORDERED: Magnesium 2 GM/NS 0.9% 100 ML 2 GM in Premix Bag 1 BAG IVPB SCH (09:00)
[2017-05-18] MEDS ORDERED: Furosemide 20 MG TAB PO SCH (09:00)
[2017-05-18] MEDS ORDERED: Aspirin 325 MG TAB PO SCH (09:00)
[2017-05-18] MEDS: Aspirin 325 mg Enteric Coated Tablet PO SCH (09:35)
[2017-05-18] MEDS: Famotidine 20 MG TAB PO SCH ×2 (09:35→21:43)
[2017-05-18] MEDS: Carvedilol 3.125 MG TAB PO SCH ×2 (09:36→21:44)
--- NOTE | 2017-05-18 10:01 | PRG ---
DATE OF SERVICE: 05/18/2017 SUBJECTIVE: Mr. Olguin today is complaining of shortness of breath. He undergone bypass surgery a few days ago. No chest pain or pressure except for incisional discomfort that noted. OBJECTIVE: VITAL SIGNS: Blood pressure 108/58, pulse 60, and temperature 98.8. LUNGS: Mild crackles bilaterally. CARDIAC: Regular rate and rhythm. ABDOMEN: Soft, nontender, nondistended. EXTREMITIES: No edema. LABORATORY DATA: Hemoglobin 9.2. Baseline weight of 202 pounds. IMPRESSION: Shortness of breath. RECOMMENDATIONS: 1. Change Lasix to IV dosing and increased to 40 mg. 2. Spirometry and ambulation. 3. Hemoglobin appears stable. 4. Continue aspirin in addition of beta barry therapy and statin therapy.
--- NOTE | 2017-05-18 11:21 | PDOC.PN ---
- Subjective Encounter Start Date: 05/18/17 Encounter Start Time: 07:15 bentley was removed this morning and hasn't urinated yet, no fever - Objective MAR Reviewed: Yes Vital Signs & Weight: Vital Signs (12 hours) Temp Pulse Resp BP Pulse Ox 05/18/17 10:08 97.6 F 58 L 16 98 05/18/17 09:00 97.6 F 58 L 16 114/60 98 05/18/17 07:37 60 05/18/17 04:00 98.8 F 60 18 108/58 L 95 05/17/17 23:59 98.0 F 58 L 18 100/55 L 97 Weight Weight 200 lb 9.6 oz Most Recent Monitor Data Heart Rate from ECG 58 NIBP 100/46 NIBP BP-Mean 62 Respiration from ECG 17 SpO2 97 I&O: 05/17/17 05/18/17 05/19/17 06:59 06:59 06:59 Intake Total 3380 819.8 Output Total 1104 385 Balance 2276 434.8 Result Diagrams: 05/18/17 04:35 05/18/17 04:35 EKG Reviewed by me: Yes Phys Exam - Physical Examination Constitutional: NAD HEENT: PERRLA, moist MMs, sclera anicteric Neck: no JVD, supple Respiratory: no wheezing, no rales, no rhonchi Cardiovascular: RRR, no significant murmur, no rub Gastrointestinal: soft, non-tender, no distention, positive bowel sounds Musculoskeletal: no edema, pulses present Neurological: non-focal, normal sensation, moves all 4 limbs Psychiatric: normal affect, A&O x 3 Skin: no rash, normal turgor Dx/Plan (1) NSTEMI (non-ST elevated myocardial infarction) Code(s): I21.4 - NON-ST ELEVATION (NSTEMI) MYOCARDIAL INFARCTION Status: Acute (2) BPH (benign prostatic hyperplasia) Code(s): N40.0 - BENIGN PROSTATIC HYPERPLASIA WITHOUT LOWER URINRY TRACT SYMP Status: Chronic Comment: (3) CAD (coronary artery disease) Code(s): I25.10 - ATHSCL HEART DISEASE OF [place] CORONARY ARTERY W/O ANG PCTRS Status: Chronic Comment: (4) CKD (chronic kidney disease) stage 2, GFR 60-89 ml/min Code(s): N18.2 - CHRONIC KIDNEY DISEASE, STAGE 2 (MILD) Status: Chronic (5) Chronic anemia Code(s): D64.9 - ANEMIA, UNSPECIFIED Status: Chronic (6) Chronic diastolic heart failure Code(s): I50.32 - CHRONIC DIASTOLIC (CONGESTIVE) HEART FAILURE Status: Chronic (7) H/O prostate cancer Code(s): Z85.46 - PERSONAL HISTORY OF MALIGNANT NEOPLASM OF PROSTATE Status: Chronic (8) HTN (hypertension) Code(s): I10 - ESSENTIAL (PRIMARY) HYPERTENSION Status: Chronic Comment: (9) Postoperative anemia due to acute blood loss Code(s): D62 - ACUTE POSTHEMORRHAGIC ANEMIA Status: Acute (10) S/P CABG x 3 Code(s): Z95.1 - PRESENCE OF AORTOCORONARY BYPASS GRAFT Status: Acute (11) Acute kidney failure Status: Acute - Plan cont current plan of care, plan discussed w/ family * continue post CABG care as per cardiology and CT surgeon * 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 Review of Systems - Review of Systems ENT: negative: Ear Pain, Ear Discharge, Nose Pain, Nose Discharge, Nose Congestion, Mouth Pain, Mouth Swelling, Throat Pain, Throat Swelling, Other Respiratory: negative: Cough, Dry, Shortness of Breath, Hemoptysis, SOB with Excertion, Pleuritic Pain, Sputum, Wheezing Cardiovascular: negative: Chest Pain, Palpitations, Orthopnea, Paroxysmal Noc. Dyspnea, Edema, Light Headedness, Other Gastrointestinal: negative: Nausea, Vomiting, Abdominal Pain, Diarrhea, Constipation, Melena, Hematochezia, Other Genitourinary: negative: Dysuria, Frequency, Incontinence, Hematuria, Retention , Other Musculoskeletal: negative: Neck Pain, Shoulder Pain, Arm Pain, Back Pain, Hand Pain, Leg Pain, Foot Pain, Other - Medications/Allergies Allergies/Adverse Reactions: Allergies Allergy/AdvReac Type Severity Reaction Status Date / Time Cephalosporins Allergy hives, Verified 04/20/17 11:04 urticaria Penicillins Allergy hives, Verified 04/20/17 11:04 urticaria Medications: Current Medications Acetaminophen (Tylenol) 650 mg PO Q6H PRN PRN Reason: Headache/Fever or Pain Hydrocodone Bitart/Acetaminophen ([place] 5/325) 1 tab PO Q4H PRN PRN Reason: Moderate Pain (4-6) Hydrocodone Bitart/Acetaminophen ([place] 5/325) 2 tab PO Q4H PRN PRN Reason: Severe Pain (7-10) Last Admin: 05/17/17 23:27 Dose: 2 tab Al Hydroxide/Mg Hydroxide (Maalox) 30 ml PO Q4H PRN PRN Reason: Indigestion Albuterol/Ipratropium (Duoneb) 3 ml NEB [id number] PRN PRN Reason: Respiratory Distress Artificial Tears (Tears Naturale) 0 drop EA EYE PRN PRN PRN Reason: Dry Eyes Aspirin (Ecotrin) 325 mg PO DAILY [facility] Last Admin: 05/18/17 09:35 Dose: 325 mg Atorvastatin Calcium (Lipitor) 20 mg PO HS [facility] Last Admin: 05/17/17 20:47 Dose: 20 mg Bisacodyl (Dulcolax) 10 mg PO Q12H PRN PRN Reason: Constipation Bisacodyl (Dulcolax) 10 mg [place] Q12H PRN PRN Reason: Constipation Carvedilol (Coreg) 3.125 mg PO BID [facility] Last Admin: 05/18/17 09:36 Dose: 3.125 mg Diphenhydramine HCl (Benadryl) 25 mg PO Q6H PRN PRN Reason: Itching & Insomnia or Sudeep Pawel Famotidine (Pepcid) 20 mg PO BID [facility] Last Admin: 05/18/17 09:35 Dose: 20 mg Fentanyl (Sublimaze) 25 mcg SLOW IVP Q2H PRN PRN Reason: Moderate breakthrough pain Furosemide (Lasix) 40 mg SLOW IVP 1000 [facility] Guaifenesin/Dextromethorphan (Robitussin Dm) 15 ml PO Q4H PRN PRN Reason: Cough Magnesium Hydroxide (Milk Of Magnesium) 30 ml PO Q12H PRN PRN Reason: Constipation Mineral Oil (Fleet Mineral Oil) 133 ml [place] DAILYPRN PRN PRN Reason: Constipation Nitroglycerin (Nitrostat) 0.4 mg SL Q5MIN PRN PRN Reason: Chest Pain Ondansetron HCl (Zofran) 4 mg IVP Q6H PRN PRN Reason: Nausea/Vomiting Potassium Chloride (Klor-Con 10) 10 meq PO QAM-WM [facility] Last Admin: 05/18/17 09:35 Dose: 10 meq Sodium Chloride (Flush - Normal Saline) 10 ml IVF PRN PRN PRN Reason: Saline Flush Zolpidem Tartrate (Ambien) 5 mg PO HSPRN PRN PRN Reason: Insomnia
[2017-05-18] MEDS ORDERED: Furosemide 40 MG/4 ML VIAL SLOW IVP SCH (18:00)
[2017-05-18] MEDS: Atorvastatin Calcium 20 MG TAB PO SCH (21:43)
[2017-05-19 05:50] LABS: Anion Gap 9 mmol/L (10-20); BUN (Urea Nitrogen) 30 mg/dL (8.4-25.7); Calc. Creatinine Clearance 41 mL/min (70-130); Calcium 8.5 mg/dL (7.8-10.44); Carbon Dioxide 22 mmol/L (23-31); Chloride 106 mmol/L (98-107); Estimated GFR-MDRD 41
[2017-05-19] MEDS ORDERED: Metolazone 5 MG TAB PO SCH (07:00)
[2017-05-19] MEDS: Furosemide 40 MG/4 ML VIAL SLOW IVP SCH (09:17)
[2017-05-19] MEDS: Famotidine 20 MG TAB PO SCH ×2 (09:17→20:41)
[2017-05-19] MEDS: Potassium Chloride 10 MEQ TAB PO SCH ×2 (09:17→15:53)
[2017-05-19] MEDS: Aspirin 325 mg Enteric Coated Tablet PO SCH (09:17)
[2017-05-19] MEDS: Carvedilol 3.125 MG TAB PO SCH ×2 (09:17→20:40)
[2017-05-19 09:48] LABS: Oxyhemoglobin 97.2 % (94.0-97.0); Sodium 139 mmol/L (135-148)
[2017-05-19 09:49] LABS: Oxyhemoglobin 97.3 % (94.0-97.0); Sodium 137 mmol/L (135-148)
[2017-05-19 09:49] LABS: Base Excess -2.7 mEq/L (0 (+/- 2.5)); O2 Content (venous) 7.7 VOL% (12.5-17.5); pH (venous) 7.37 (7.35-7.45)
[2017-05-19 09:49] LABS: Oxyhemoglobin 97.2 % (94.0-97.0); Sodium 138 mmol/L (135-148)
[2017-05-19 09:50] LABS: Oxyhemoglobin 97.3 % (94.0-97.0); Sodium 138 mmol/L (135-148)
--- NOTE | 2017-05-19 10:14 | PDOC.PN ---
- Subjective Encounter Start Date: 05/19/17 Encounter Start Time: 07:20 pt has no apatite, has no BM since admission, denies dyspnea - Objective MAR Reviewed: Yes Vital Signs & Weight: Vital Signs (12 hours) Temp Pulse Resp BP Pulse Ox 05/19/17 07:48 98.2 F 72 18 132/69 97 05/19/17 04:00 98 F 81 20 124/58 L 95 05/19/17 00:00 97.3 F L 79 20 112/56 L 96 Weight Weight 201 lb 12.8 oz Most Recent Monitor Data Heart Rate from ECG 58 NIBP 100/46 NIBP BP-Mean 62 Respiration from ECG 17 SpO2 97 I&O: 05/18/17 05/19/17 05/20/17 06:59 06:59 06:59 Intake Total 819.8 300 Output Total 385 575 Balance 434.8 -275 Result Diagrams: 05/18/17 04:35 05/19/17 04:46 EKG Reviewed by me: Yes (nsr) Phys Exam - Physical Examination Constitutional: NAD HEENT: PERRLA, moist MMs, sclera anicteric Neck: no JVD, supple Respiratory: no wheezing, no rales, no rhonchi Cardiovascular: RRR, no significant murmur, no rub surgical site is clean Gastrointestinal: soft, non-tender, no distention, positive bowel sounds Musculoskeletal: no edema, pulses present Neurological: non-focal, normal sensation Lymphatic: no nodes Psychiatric: normal affect, A&O x 3 Skin: no rash, normal turgor Dx/Plan (1) NSTEMI (non-ST elevated myocardial infarction) Code(s): I21.4 - NON-ST ELEVATION (NSTEMI) MYOCARDIAL INFARCTION Status: Acute (2) BPH (benign prostatic hyperplasia) Code(s): N40.0 - BENIGN PROSTATIC HYPERPLASIA WITHOUT LOWER URINRY TRACT SYMP Status: Chronic Comment: (3) CAD (coronary artery disease) Code(s): I25.10 - ATHSCL HEART DISEASE OF [place] CORONARY ARTERY W/O ANG PCTRS Status: Chronic Comment: (4) CKD (chronic kidney disease) stage 2, GFR 60-89 ml/min Code(s): N18.2 - CHRONIC KIDNEY DISEASE, STAGE 2 (MILD) Status: Chronic (5) Chronic anemia Code(s): D64.9 - ANEMIA, UNSPECIFIED Status: Chronic (6) Chronic diastolic heart failure Code(s): I50.32 - CHRONIC DIASTOLIC (CONGESTIVE) HEART FAILURE Status: Chronic (7) H/O prostate cancer Code(s): Z85.46 - PERSONAL HISTORY OF MALIGNANT NEOPLASM OF PROSTATE Status: Chronic (8) HTN (hypertension) Code(s): I10 - ESSENTIAL (PRIMARY) HYPERTENSION Status: Chronic Comment: (9) Postoperative anemia due to acute blood loss Code(s): D62 - ACUTE POSTHEMORRHAGIC ANEMIA Status: Acute (10) S/P CABG x 3 Code(s): Z95.1 - PRESENCE OF AORTOCORONARY BYPASS GRAFT Status: Acute (11) Acute kidney failure Status: Acute - Plan cont current plan of care, plan discussed w/ family * renal function better today * pt is euvolemic * stool softener for constipation * cardiac rehab * medication reviewed as below * symptomatic treatment. Review of Systems - Review of Systems Constitutional: negative: Fever, Chills, Sweats, Weakness, Malaise, Other Eyes: negative: Pain, Vision Change, Conjunctivae Inflammation, Eyelid Inflammation, Redness, Other ENT: negative: Ear Pain, Ear Discharge, Nose Pain, Nose Discharge, Nose Congestion, Mouth Pain, Mouth Swelling, Throat Pain, Throat Swelling, Other Respiratory: negative: Cough, Dry, Shortness of Breath, Hemoptysis, SOB with Excertion, Pleuritic Pain, Sputum, Wheezing Cardiovascular: negative: Chest Pain, Palpitations, Orthopnea, Paroxysmal Noc. Dyspnea, Edema, Light Headedness, Other Gastrointestinal: Constipation. negative: Nausea, Vomiting, Abdominal Pain, Diarrhea, Melena, Hematochezia, Other Genitourinary: negative: Dysuria, Frequency, Incontinence, Hematuria, Retention , Other Musculoskeletal: negative: Neck Pain, Shoulder Pain, Arm Pain, Back Pain, Hand Pain, Leg Pain, Foot Pain, Other Skin: negative: Rash, Lesions, Donald, Bruising, Other - Medications/Allergies Allergies/Adverse Reactions: Allergies Allergy/AdvReac Type Severity Reaction Status Date / Time Cephalosporins Allergy hives, Verified 04/20/17 11:04 urticaria Penicillins Allergy hives, Verified 04/20/17 11:04 urticaria Medications: Current Medications Acetaminophen (Tylenol) 650 mg PO Q6H PRN PRN Reason: Headache/Fever or Pain Hydrocodone Bitart/Acetaminophen ([place] 5/325) 1 tab PO Q4H PRN PRN Reason: Moderate Pain (4-6) Last Admin: 05/18/17 21:43 Dose: 1 tab Hydrocodone Bitart/Acetaminophen ([place] 5/325) 2 tab PO Q4H PRN PRN Reason: Severe Pain (7-10) Last Admin: 05/17/17 23:27 Dose: 2 tab Al Hydroxide/Mg Hydroxide (Maalox) 30 ml PO Q4H PRN PRN Reason: Indigestion Albuterol/Ipratropium (Duoneb) 3 ml NEB [id number] PRN PRN Reason: Respiratory Distress Artificial Tears (Tears Naturale) 0 drop EA EYE PRN PRN PRN Reason: Dry Eyes Aspirin (Ecotrin) 325 mg PO DAILY [facility] Last Admin: 05/19/17 09:17 Dose: 325 mg Atorvastatin Calcium (Lipitor) 20 mg PO HS [facility] Last Admin: 05/18/17 21:43 Dose: 20 mg Bisacodyl (Dulcolax) 10 mg PO Q12H PRN PRN Reason: Constipation Bisacodyl (Dulcolax) 10 mg [place] Q12H PRN PRN Reason: Constipation Carvedilol (Coreg) 3.125 mg PO BID [facility] Last Admin: 05/19/17 09:17 Dose: 3.125 mg Diphenhydramine HCl (Benadryl) 25 mg PO Q6H PRN PRN Reason: Itching & Insomnia or Sudeep Pawel Famotidine (Pepcid) 20 mg PO BID [facility] Last Admin: 05/19/17 09:17 Dose: 20 mg Fentanyl (Sublimaze) 25 mcg SLOW IVP Q2H PRN PRN Reason: Moderate breakthrough pain Furosemide (Lasix) 40 mg SLOW IVP 1000 [facility] Last Admin: 05/19/17 09:17 Dose: 40 mg Guaifenesin/Dextromethorphan (Robitussin Dm) 15 ml PO Q4H PRN PRN Reason: Cough Magnesium Hydroxide (Milk Of Magnesium) 30 ml PO Q12H PRN PRN Reason: Constipation Mineral Oil (Fleet Mineral Oil) 133 ml [place] DAILYPRN PRN PRN Reason: Constipation Nitroglycerin (Nitrostat) 0.4 mg SL Q5MIN PRN PRN Reason: Chest Pain Ondansetron HCl (Zofran) 4 mg IVP Q6H PRN PRN Reason: Nausea/Vomiting Potassium Chloride (Klor-Con 10) 10 meq PO BID-[facility] Last Admin: 05/19/17 09:17 Dose: 10 meq Sodium Chloride (Flush - Normal Saline) 10 ml IVF PRN PRN PRN Reason: Saline Flush Last Admin: 05/19/17 09:17 Dose: 10 ml Zolpidem Tartrate (Ambien) 5 mg PO HSPRN PRN PRN Reason: Insomnia
[2017-05-19] MEDS: Atorvastatin Calcium 20 MG TAB PO SCH (20:41)
--- NOTE | 2017-05-19 21:16 | PRG ---
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 He got a dose of La six yesterday. He has also diuresed. OBJECTIVE: VITAL SIGNS: Blood pressure 123/72, pulse 64, temperature 97.3 LUNGS: Decreased breath sounds bilaterally. CARDIAC: Regular rate and rhythm. ABDOMEN: Soft, nontender, nondistended. EXTREMITIES: No edema. IMPRESSION: 1. Status post bypass surgery. 2. Diastolic heart failure. RECOMMENDATIONS: The patient received an additional dose of Lasix at 40 mg IV. We will reassess in a.m. and give another dose if needed. He will likely need to be on p.o. Lasix. Continue carvedilol in addition to aspirin and atorvastatin.
[2017-05-19] MEDS: HYDROcodone/Acetaminophen 5/325 mg Tablet PO PRN (21:45)
--- NOTE | 2017-05-19 21:52 | RAD ---
CHEST ONE VIEW 05/19/17 HISTORY: Difficulty breathing. COMPARISON: 05/17/17. FINDINGS: A central venous catheter is similar. Small effusions. Heart size is prominent. There are bibasilar opacities. IMPRESSION: Small effusions and bibasilar opacities likely reflective of atelectasis. Continued followup recommen ded. POS: [facility]
[2017-05-20 08:02] LABS: Mode OR ABG; Vent YES
[2017-05-20 08:02] LABS: Mode OR ABG; Vent YES
[2017-05-20 08:03] LABS: Mode OR ABG; Vent YES
[2017-05-20 08:04] LABS: Mode OR ABG; Vent YES
--- NOTE | 2017-05-20 08:32 | PQF ---
DONALDO ENAMORADO RICARDO MD [id number] [facility]-263 [id number] CLINICAL DOCUMENTATION IMPROVEMENT CLARIFICATION FORM: ICD-10 Updated PLEASE DO AN ADDENDUM TO THE PROGRESS NOTE WITH ANY DOCUMENTATION UPDATES OR ADDITIONS AND CARRY THROUGH TO DC SUMMARY. THANK YOU. DATE: 05/20 ATTN: DR. Monserrat NEWBY Please exercise your independent, professional judgment in responding to the clarification form. Clinical indicators are provided on the bottom of this form for your review Please check appropriate box(s): DIASTOLIC HEART FAILURE: ACUITY [ ] Acute [ ] Acute on Chronic [ ] Chronic WITH (if appropriate) [ ] Hypertensive Heart Disease[ ] Hypertensive Heart and Kidney Disease [ ] Other diagnosis [ ] Unable to determine For continuity of documentation, please document condition throughout progress notes and discharge summary. Thank You. 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 RECOMMENDATIONS: 1. 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 HE GOT A DOSE OF LASIX YESTERDAY. HE ALSO DIURESED. IMPRESSION: 2. DIASTOLIC HEART FAILURE; RECOMMENDATION: THE PT REC'D AN ADD 'L DOSE OF LASIX AT 40 MG IV. WE WILL REASSESS IN A.M. & GIVEN ANOTHER DOSE IF NEEDED. RISKS: NSTEMI CHRONIC DIASTOLIC CHF S/P CABG CKD 2 HTN TREATMENTS: IV LASIX (05/19 - PRESENT) PO COREG TELEMETRY MONITORING THANK YOU, ANAIS (This form is maintained as a part of the permanent medical record) 2015 [employer]. All Rights Reserved Anais Harris, RN, BSN [email or web address] Office: [phone] [facility]
[2017-05-20] MEDS: Famotidine 20 MG TAB PO SCH ×2 (08:55→20:44)
[2017-05-20] MEDS: Carvedilol 3.125 MG TAB PO SCH ×2 (08:55→20:44)
[2017-05-20] MEDS: Potassium Chloride 10 MEQ TAB PO SCH ×2 (08:55→17:04)
[2017-05-20] MEDS: Aspirin 325 mg Enteric Coated Tablet PO SCH (08:56)
[2017-05-20] MEDS ORDERED: Polyethylene Glycol 3350 17 GM Packet PO SCH (10:30)
[2017-05-20] MEDS ORDERED: Senokot S 8.6-50 MG TAB PO SCH (10:30)
[2017-05-20] MEDS: Furosemide 40 MG/4 ML VIAL SLOW IVP SCH (10:42)
--- NOTE | 2017-05-20 12:56 | PDOC.PN ---
- Subjective Encounter Start Date: 05/20/17 Encounter Start Time: 10:30 Patient seen and examined. No new complaints. No overnight events. No CP/SOB. - Objective MAR Reviewed: Yes Vital Signs & Weight: Vital Signs (12 hours) Temp Pulse Resp BP BP Pulse Ox Pulse Ox 05/20/17 08:45 98.0 F 68 16 109/55 L 94 L 05/20/17 08:24 109/55 L 94 L 05/20/17 07:55 96 05/20/17 04:00 98.5 F 46 L 18 117/51 L 97 05/20/17 01:41 99 Weight Weight 197 lb 3.2 oz Most Recent Monitor Data Heart Rate from ECG 58 NIBP 100/46 NIBP BP-Mean 62 Respiration from ECG 17 SpO2 97 I&O: 05/19/17 05/20/17 05/21/17 06:59 06:59 06:59 Intake Total 300 1380 Output Total 575 1930 Balance -275 -550 Result Diagrams: 05/18/17 04:35 05/21/17 04:12 EKG Reviewed by me: Yes (Tele SR) Phys Exam - Physical Examination Constitutional: NAD Respiratory: no wheezing, no rhonchi Cardiovascular: RRR, no rub Gastrointestinal: soft, non-tender, positive bowel sounds Neurological: moves all 4 limbs Dx/Plan - Plan cont current plan of care, DVT proph w/SCDs IMPRESSION 1. NSTEMI 2. CAD s/p CABG this admission 3. Chronic systolic/diastolic heart failure - ACEI/ARB/Aldactone on hold due to BRITTANI/BP on lower side 4. BRITTANI on CKD 2 - improving 5. HTN 6. BPH PLAN: * Cont supportive care * Stable to dc to Inpt Rehab when approved * Cont to monitor * Cont current meds as below * BMP in AM Review of Systems - Review of Systems Constitutional: negative: Fever, Chills, Sweats, Weakness, Malaise Respiratory: negative: Cough, Dry, Shortness of Breath, Hemoptysis, SOB with Excertion, Pleuritic Pain, Sputum, Wheezing Cardiovascular: negative: Chest Pain, Palpitations, Orthopnea, Paroxysmal Noc. Dyspnea, Edema, Light Headedness Gastrointestinal: negative: Nausea, Vomiting, Abdominal Pain, Diarrhea, Constipation, Melena, Hematochezia - Medications/Allergies Allergies/Adverse Reactions: Allergies Allergy/AdvReac Type Severity Reaction Status Date / Time Cephalosporins Allergy hives, Verified 04/20/17 11:04 urticaria Penicillins Allergy hives, Verified 04/20/17 11:04 urticaria Medications: Current Medications Acetaminophen (Tylenol) 650 mg PO Q6H PRN PRN Reason: Headache/Fever or Pain Hydrocodone Bitart/Acetaminophen ([place] 5/325) 1 tab PO Q4H PRN PRN Reason: Moderate Pain (4-6) Last Admin: 05/18/17 21:43 Dose: 1 tab Hydrocodone Bitart/Acetaminophen ([place] 5/325) 2 tab PO Q4H PRN PRN Reason: Severe Pain (7-10) Last Admin: 05/19/17 21:45 Dose: 2 tab Al Hydroxide/Mg Hydroxide (Maalox) 30 ml PO Q4H PRN PRN Reason: Indigestion Albuterol/Ipratropium (Duoneb) 3 ml NEB [id number] PRN PRN Reason: Respiratory Distress Artificial Tears (Tears Naturale) 0 drop EA EYE PRN PRN PRN Reason: Dry Eyes Aspirin (Ecotrin) 325 mg PO DAILY [facility] Last Admin: 05/20/17 08:56 Dose: 325 mg Atorvastatin Calcium (Lipitor) 20 mg PO HS [facility] Last Admin: 05/19/17 20:41 Dose: 20 mg Bisacodyl (Dulcolax) 10 mg PO Q12H PRN PRN Reason: Constipation Bisacodyl (Dulcolax) 10 mg [place] Q12H PRN PRN Reason: Constipation Carvedilol (Coreg) 3.125 mg PO BID [facility] Last Admin: 05/20/17 08:55 Dose: 3.125 mg Diphenhydramine HCl (Benadryl) 25 mg PO Q6H PRN PRN Reason: Itching & Insomnia or Sudeep Pawel Famotidine (Pepcid) 20 mg PO BID [facility] Last Admin: 05/20/17 08:55 Dose: 20 mg Fentanyl (Sublimaze) 25 mcg SLOW IVP Q2H PRN PRN Reason: Moderate breakthrough pain Furosemide (Lasix) 40 mg SLOW IVP 1000 [facility] Last Admin: 05/20/17 10:42 Dose: 40 mg Guaifenesin/Dextromethorphan (Robitussin Dm) 15 ml PO Q4H PRN PRN Reason: Cough Magnesium Hydroxide (Milk Of Magnesium) 30 ml PO Q12H PRN PRN Reason: Constipation Mineral Oil (Fleet Mineral Oil) 133 ml [place] DAILYPRN PRN PRN Reason: Constipation Nitroglycerin (Nitrostat) 0.4 mg SL Q5MIN PRN PRN Reason: Chest Pain Ondansetron HCl (Zofran) 4 mg IVP Q6H PRN PRN Reason: Nausea/Vomiting Polyethylene Glycol (Miralax) 17 gm PO DAILY [facility] Potassium Chloride (Klor-Con 10) 10 meq PO BID- [facility] Last Admin: 05/20/17 08:55 Dose: 10 meq Senna/Docusate Sodium (Senokot S) 1 tab PO BID [facility] Sodium Chloride (Flush - Normal Saline) 10 ml IVF PRN PRN PRN Reason: Saline Flush Last Admin: 05/19/17 09:17 Dose: 10 ml Zolpidem Tartrate (Ambien) 5 mg PO HSPRN PRN PRN Reason: Insomnia
--- NOTE | 2017-05-20 14:49 | PDOC.CTH ---
Cardiology Progress Note - Subjective Patient seen and examined. Reports significant SOB overnight that has since resolved with diuresis this am. States he is feeling much better and ambulating in hallway with PT without difficulty. - Objective Vital Signs Temp Pulse Resp BP BP Pulse Ox Pulse Ox 05/20/17 12:40 98.0 F 79 14 115/57 L 93 L 05/20/17 08:45 98.0 F 68 16 109/55 L 94 L 05/20/17 08:24 109/55 L 94 L 05/20/17 07:55 96 05/20/17 04:00 98.5 F 46 L 18 117/51 L 97 Weight 197 lb 3.2 oz 05/19/17 05/20/17 05/21/17 06:59 06:59 06:59 Intake Total 300 1380 Output Total 575 1930 Balance -275 -550 - Physical Examination General/Neuro: alert & oriented x3, NAD Neck: no JVD present Lungs: unlabored respirations, other: (diminished bilaterally, no rales) - Labs Result Diagrams: 05/18/17 04:35 05/19/17 04:46 Troponin/CKMB CK-MB (CK-2) 1.2 ng/mL (0-6.6) 05/15/17 04:08 Troponin I 0.704 ng/mL (< 0.028) H* 05/15/17 10:00 - Assessment/Plan Assessment: 1. NSTEMI 2. CAD s/p CABG x 3 on 05/16/17 3. A/C Diastolic Heart Failure 4. HTN 5. BRITTANI on CKD II Plan: The patient's status is improving. He is currently without complaints and reports SOB is resolved with diuresis. 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 He is ambulating without difficulty and was encouraged to increase use of IS. We will change IV lasix to po and continue to monitor.
[2017-05-20] MEDS: Senokot S 8.6-50 MG TAB PO SCH (20:43)
[2017-05-20] MEDS: HYDROcodone/Acetaminophen 5/325 mg Tablet PO PRN (20:43)
[2017-05-20] MEDS: Atorvastatin Calcium 20 MG TAB PO SCH (20:43)
[2017-05-21 05:03] LABS: Anion Gap 9 mmol/L (10-20); BUN (Urea Nitrogen) 22 mg/dL (8.4-25.7); Calc. Creatinine Clearance 61 mL/min (70-130); Calcium 8.9 mg/dL (7.8-10.44); Carbon Dioxide 27 mmol/L (23-31); Chloride 105 mmol/L (98-107); Estimated GFR-MDRD 66; Magnesium 1.8 mg/dL (1.6-2.6)
[2017-05-21] MEDS: Aspirin 325 mg Enteric Coated Tablet PO SCH (07:56)
[2017-05-21] MEDS: Furosemide 40 MG TAB PO SCH (07:56)
[2017-05-21] MEDS: Carvedilol 3.125 MG TAB PO SCH ×2 (07:56→21:51)
[2017-05-21] MEDS: Famotidine 20 MG TAB PO SCH ×2 (07:56→21:50)
[2017-05-21] MEDS: Potassium Chloride 10 MEQ TAB PO SCH ×2 (07:56→17:29)
[2017-05-21] MEDS: Senokot S 8.6-50 MG TAB PO SCH ×2 (07:56→21:50)
[2017-05-21] MEDS: Polyethylene Glycol 3350 17 GM Packet PO SCH (07:56)
--- NOTE | 2017-05-21 10:29 | PDOC.PN ---
- Subjective Encounter Start Date: 05/21/17 Encounter Start Time: 10:00 Patient seen and examined. No new complaints. No overnight events. No CP. No BM - Objective MAR Reviewed: Yes Vital Signs & Weight: Vital Signs (12 hours) Temp Pulse Resp BP Pulse Ox 05/21/17 04:00 97.4 F L 74 20 128/66 95 05/21/17 00:00 18 Weight Weight 196 lb 6.4 oz Most Recent Monitor Data Heart Rate from ECG 58 NIBP 100/46 NIBP BP-Mean 62 Respiration from ECG 17 SpO2 97 I&O: 05/20/17 05/21/17 05/22/17 06:59 06:59 06:59 Intake Total 1380 120 Output Total 1930 200 Balance -550 -80 Result Diagrams: 05/18/17 04:35 05/21/17 04:12 EKG Reviewed by me: Yes (Tele SR) Phys Exam - Physical Examination Constitutional: NAD Respiratory: no wheezing, no rhonchi Cardiovascular: RRR, no rub Gastrointestinal: soft, non-tender, positive bowel sounds Musculoskeletal: no edema Neurological: moves all 4 limbs Dx/Plan - Plan DVT proph w/SCDs IMPRESSION 1. NSTEMI s/p Cath 2. CAD s/p CABG this admission 3. Chronic systolic/diastolic heart failure - ACEI/ARB/Aldactone on hold due to BRITTANI/BP on lower side 4. BRITTANI on CKD 2 - improving 5. HTN 6. BPH 7. Ischemic CM 8. Constipation PLAN: * Cont Miralax * Increase Sen-S to 2 tab BID * Add Prune juice * Patient declined Dulcolax supp. * Cont supportive care * Stable to dc to Inpt Rehab when approved * Cont to monitor * Cont current meds as below * Cardio/CT following Review of Systems - Review of Systems Constitutional: negative: Fever, Chills, Sweats, Weakness, Malaise, Other Respiratory: negative: Cough, Dry, Shortness of Breath, Hemoptysis, SOB with Excertion, Pleuritic Pain, Sputum, Wheezing Cardiovascular: negative: Chest Pain, Palpitations, Orthopnea, Paroxysmal Noc. Dyspnea, Edema, Light Headedness - Medications/Allergies Allergies/Adverse Reactions: Allergies Allergy/AdvReac Type Severity Reaction Status Date / Time Cephalosporins Allergy hives, Verified 04/20/17 11:04 urticaria Penicillins Allergy hives, Verified 04/20/17 11:04 urticaria Medications: Current Medications Acetaminophen (Tylenol) 650 mg PO Q6H PRN PRN Reason: Headache/Fever or Pain Hydrocodone Bitart/Acetaminophen ([place] 5/325) 1 tab PO Q4H PRN PRN Reason: Moderate Pain (4-6) Last Admin: 05/18/17 21:43 Dose: 1 tab Hydrocodone Bitart/Acetaminophen ([place] 5/325) 2 tab PO Q4H PRN PRN Reason: Severe Pain (7-10) Last Admin: 05/20/17 20:43 Dose: 2 tab Al Hydroxide/Mg Hydroxide (Maalox) 30 ml PO Q4H PRN PRN Reason: Indigestion Albuterol/Ipratropium (Duoneb) 3 ml NEB [id number] PRN PRN Reason: Respiratory Distress Artificial Tears (Tears Naturale) 0 drop EA EYE PRN PRN PRN Reason: Dry Eyes Aspirin (Ecotrin) 325 mg PO DAILY [facility] Last Admin: 05/21/17 07:56 Dose: 325 mg Atorvastatin Calcium (Lipitor) 20 mg PO [facility] Last Admin: 05/20/17 20:43 Dose: 20 mg Bisacodyl (Dulcolax) 10 mg PO Q12H PRN PRN Reason: Constipation Bisacodyl (Dulcolax) 10 mg [place] Q12H PRN PRN Reason: Constipation Carvedilol (Coreg) 3.125 mg PO BID [facility] Last Admin: 05/21/17 07:56 Dose: 3.125 mg Diphenhydramine HCl (Benadryl) 25 mg PO Q6H PRN PRN Reason: Itching & Insomnia or Sudeep Pawel Famotidine (Pepcid) 20 mg PO BID [facility] Last Admin: 05/21/17 07:56 Dose: 20 mg Fentanyl (Sublimaze) 25 mcg SLOW IVP Q2H PRN PRN Reason: Moderate breakthrough pain Furosemide (Lasix) 40 mg PO DAILY-[facility] Last Admin: 05/21/17 07:56 Dose: 40 mg Guaifenesin/Dextromethorphan (Robitussin Dm) 15 ml PO Q4H PRN PRN Reason: Cough Magnesium Hydroxide (Milk Of Magnesium) 30 ml PO Q12H PRN PRN Reason: Constipation Mineral Oil (Fleet Mineral Oil) 133 ml [place] DAILYPRN PRN PRN Reason: Constipation Nitroglycerin (Nitrostat) 0.4 mg SL Q5MIN PRN PRN Reason: Chest Pain Ondansetron HCl (Zofran) 4 mg IVP Q6H PRN PRN Reason: Nausea/Vomiting Polyethylene Glycol (Miralax) 17 gm PO DAILY [facility] Last Admin: 05/21/17 07:56 Dose: 17 gm Potassium Chloride (Klor-Con 10) 10 meq PO BID-[facility] Last Admin: 05/21/17 07:56 Dose: 10 meq Senna/Docusate Sodium (Senokot S) 1 tab PO BID [facility] Last Admin: 05/21/17 07:56 Dose: 1 tab Sodium Chloride (Flush - Normal Saline) 10 ml IVF PRN PRN PRN Reason: Saline Flush Last Admin: 05/19/17 09:17 Dose: 10 ml Zolpidem Tartrate (Ambien) 5 mg PO HSPRN PRN PRN Reason: Insomnia
[2017-05-21] MEDS ORDERED: Furosemide 40 MG/4 ML VIAL SLOW IVP SCH (13:30)
--- NOTE | 2017-05-21 14:36 | PRG ---
DATE OF SERVICE: 05/21/2017 Mr. Olguin today states he is short of breath. He feels because he was switched from IV Lasix to p.o . Lasix. He is retaining fluid. He is ambulated. Otherwise, doing well except not having a bowel mo vement. OBJECTIVE: VITAL SIGNS: Blood pressure 110/56, pulse 82, temperature 98.3. LUNGS: Mild crackles noted at bases bilaterally. HEART: Regular rate and rhythm. ABDOMEN: Soft, nontender, nondistended. EXTREMITIES: No edema. PERTINENT LABS: Creatinine 1.06. IMPRESSION: 1. Severe coronary artery disease. 2. Satus post bypass surgery. RECOMMENDATIONS: 1. Given additional IV dose of Lasix. Continue p.o. Lasix. 2. Ambulate and incentive spirometry. The patient will be transferred to rehab in the next 1 to 2 d ays.
[2017-05-21] MEDS: Atorvastatin Calcium 20 MG TAB PO SCH (21:50)
[2017-05-21] MEDS: HYDROcodone/Acetaminophen 5/325 mg Tablet PO PRN (21:56)
[2017-05-22] MEDS: Polyethylene Glycol 3350 17 GM Packet PO SCH (10:39)
[2017-05-22] MEDS: Furosemide 40 MG TAB PO SCH (10:40)
[2017-05-22] MEDS: Aspirin 325 mg Enteric Coated Tablet PO SCH (10:40)
[2017-05-22] MEDS: Carvedilol 3.125 MG TAB PO SCH (10:40)
[2017-05-22] MEDS: Potassium Chloride 10 MEQ TAB PO SCH (10:40)
[2017-05-22] MEDS: Famotidine 20 MG TAB PO SCH (10:40)
[2017-05-22] MEDS: Senokot S 8.6-50 MG TAB PO SCH (10:40)
--- NOTE | 2017-05-22 12:43 | PRG ---
DATE OF SERVICE: 05/22/2017 SUBJECTIVE: Mr. Olguin is doing well. No chest pain or pressure noted. He states he is feeling mu ch better after IV dose of Lasix. He is ambulating. OBJECTIVE: CURRENT VITAL SIGNS: Blood pressure 127/83, pulse 92, temperature 96.6. LUNGS: Clear to auscultation. CARDIAC: Regular rate and rhythm. ABDOMEN: Soft, nontender, nondistended. EXTREMITIES: No edema. IMPRESSION: 1. Coronary artery disease. 2. Status post bypass surgery. RECOMMENDATIONS: Continue current medical therapy. We will change IV Lasix to p.o. medication. Con tinue statin and beta barry therapy. The patient will be transferred to rehab today.
[2017-05-22 12:50] VITALS: BP 106/55; TEMP 98.6
--- NOTE | 2017-05-22 17:24 | DIS ---
DATE OF DISCHARGE: 05/22/2017 DISCHARGE DISPOSITION: Inpatient rehabilitation. ALLERGIES: The patient is allergic to PENICILLIN and CEPHALOSPORINS. The patient was seen and examined on the day of discharge. Denies any new complaints. No chest pain , shortness of breath, or palpitations. DISCHARGE MEDICATIONS: Tylenol as needed, aspirin 325 mg daily, Lipitor 20 mg daily, carvedilol 3.12 5 mg b.i.d., Lasix 40 mg daily, gabapentin 200 mg at bedtime, multivitamin 1 tablet daily, nitroglyce rin sublingual as needed, MiraLax 17 grams daily, potassium chloride 20 mEq daily, and Senokot-S 1 ta blet b.i.d. INPATIENT CONSULTANTS: 1. Cardiology, Dr. Deutsch 2. Cardiothoracic, Dr. Stoney Swartz. INPATIENT PROCEDURES: 1. On 05/16/2017, patient underwent coronary artery bypass grafting x3. 2. On 05/15/2017 the patient underwent cardiac catheterization that showed 3-vessel disease. BRIEF HOSPITAL COURSE: The patient is an 86-year-old male with coronary artery disease with recent h ospitalization for congestive heart failure exacerbation, presented to the hospital with chest discom fort. Please refer to the history and physical dated 05/15/2017 for further details. The patient was admitted to the hospital with the diagnosis of non-ST elevation [place]/unstable angina. His initial troponin was 0.184 with maximum troponin 0.704. He underwent cardiac catheterization fol lowed by coronary artery bypass grafting as discussed above. Carotid artery Doppler was negative for hemodynamically significant stenosis. He had some issues with fluid overload post CABG that improve d with diuretics. His medications have been optimized. FAREED inhibitor and ARB will be held due to re cent acute kidney injury. His maximum creatinine was 2.13. His creatinine yesterday was 1.06. Repe at lab in 1 week is recommended. The patient will be discharged to inpatient rehab for further optim ization. FINAL DIAGNOSES: 1. Non-ST elevation myocardial infarction. 2. Three-vessel coronary artery disease, status post coronary artery bypass graft. 3. Chronic systolic and diastolic heart failure, ejection fraction 35% range. Patient is not a cand idate for angiotensin converting enzyme inhibitor, angiotensin receptor barry, or Aldactone due to recent acute kidney injury and blood pressure on the lower side. 4. Ischemic cardiomyopathy. 5. Acute kidney injury on chronic kidney disease stage 2, improved. 6. Hypertension. 7. Benign prostatic hypertrophy. 8. Constipation. 9. Chronic low back pain. 10. Recent back surgery. 11. Chronic anemia. 12. History of prostate cancer. Total time coordinating the discharge of this patient was 33 minutes.
== END 2017-05-22 15:28 | DRG 233 ==
LOC: ERS 03:39 → ERHOLD 05:14 → 2SW 07:27 → OBSVTOIN 10:50 → CCU 12:23 → 2NO 05-17 13:59
PROVIDERS: ADMIT Internal Medicine; ATTEND Internal Medicine
PROC: 4A023N7 Measurement of Cardiac Sampling and Pressure, Left Heart, Percutaneous Approach (ICD-10-PCS; principal; 2017-05-15)
PROC: B2111ZZ Fluoroscopy of Multiple Coronary Arteries using Low Osmolar Contrast (ICD-10-PCS; 2017-05-15)
PROC: B2151ZZ Fluoroscopy of Left Heart using Low Osmolar Contrast (ICD-10-PCS; 2017-05-15)
PROC: 02100Z9 Bypass Coronary Artery, One Artery from Left Internal Mammary, Open Approach (ICD-10-PCS; 2017-05-16)
PROC: 021109W Bypass Coronary Artery, Two Arteries from Aorta with Autologous Venous Tissue, Open Approach (ICD-10-PCS; 2017-05-16)
PROC: 06BP0ZZ Excision of Right Saphenous Vein, Open Approach (ICD-10-PCS; 2017-05-16)
PROC: 5A1221Z Performance of Cardiac Output, Continuous (ICD-10-PCS; 2017-05-16)
PROC: B24BZZ4 Ultrasonography of Heart with Aorta, Transesophageal (ICD-10-PCS; 2017-05-16)
DX: I21.4 Non-ST elevation (NSTEMI) myocardial infarction (principal); I50.43 Acute on chronic combined systolic (congestive) and diastolic (congestive) heart failure; N17.9 Acute kidney failure, unspecified; I13.0 Hypertensive heart and chronic kidney disease with heart failure and stage 1 through stage 4 chronic kidney disease, or unspecified chronic kidney disease; D62 Acute posthemorrhagic anemia; Z95.5 Presence of coronary angioplasty implant and graft; I25.110 Atherosclerotic heart disease of native coronary artery with unstable angina pectoris; N18.2 Chronic kidney disease, stage 2 (mild); E78.5 Hyperlipidemia, unspecified; I25.2 Old myocardial infarction; Z85.46 Personal history of malignant neoplasm of prostate; N40.0 Benign prostatic hyperplasia without lower urinary tract symptoms; M54.5 Low back pain; Z88.0 Allergy status to penicillin; Z88.8 Allergy status to other drugs, medicaments and biological substances; K59.00 Constipation, unspecified; I25.5 Ischemic cardiomyopathy; K21.9 Gastro-esophageal reflux disease without esophagitis
CPT/HCPCS: 36415; 36416; 71010; 76942; 80048; 80053; 80061; 82550; 82553; 82805; 83690; 83735; 84484; 85025; 85610; 85730; 86850; 86900; 86901; 93005; 93010; 93458; 93798; 93880; 94002; 94150; 96374; 99152; A4216; C1769; G8978-GP-CL; G8979-GP-CI; G8987-GO-CI; G8987-GO-CJ; G8988-GO-CI; G8989-GO-CI; J0171; J1642; J1644; J1650; J1815; J1885; J1940; J1956; J2001; J2250; J2260; J2270; J2405; J2704; J2720; J3010; J3370; J3475; J7050; J7070; P9045; S0017; S0028

== ENCOUNTER 2017-10-05 03:01 | Observation (INO) | payer MEDICARE, BC ==
[2017-10-05] MEDS ORDERED: Morphine 4 MG/ML VIAL ONE ×2 (03:36→04:37)
[2017-10-05] MEDS ORDERED: Ondansetron ODT 4 MG TAB ONE (03:36)
[2017-10-05 04:13] LABS: ALT (SGPT) 13 U/L (8-55); AST (SGOT) 18 U/L (5-34); Albumin 4.4 g/dL (3.4-4.8); Alkaline Phosphatase 85 U/L (40-150); Anion Gap 14 mmol/L (10-20); BUN (Urea Nitrogen) 14 mg/dL (8.4-25.7); Bilirubin, Total 0.9 mg/dL (0.2-1.2); CK (CPK) 48 U/L (30-200); Calc. Creatinine Clearance 0 mL/min (70-130); Calcium 10.3 mg/dL (7.8-10.44); Carbon Dioxide 25 mmol/L (23-31); Chloride 104 mmol/L (98-107); Estimated GFR-MDRD 59; Globulin 2.9 g/dL (2.4-3.5); Glucose 139 mg/dL (83-110); Lipase 10 U/L (8-78); Potassium 4.2 mmol/L (3.5-5.1); Protein, Total 7.3 g/dL (5.8-8.1); Sodium 139 mmol/L (136-145)
[2017-10-05 04:17] LABS: CKMB 1.5 ng/mL (0-6.6)
[2017-10-05] MEDS ORDERED: Promethazine HCl 25 MG/ML VIAL ONE (04:40)
[2017-10-05 07:11] LABS: Troponin I 0.078 ng/mL (< 0.028)
[2017-10-05] MEDS ORDERED: Ondansetron HCl/PF 4 MG/2 ML Vial IVP PRN (07:14)
[2017-10-05] MEDS ORDERED: Acetaminophen 325 MG TAB PO PRN (07:14)
[2017-10-05] MEDS ORDERED: Ondansetron ODT 4 MG TAB PO PRN (07:14)
[2017-10-05] MEDS ORDERED: Morphine 4 MG/ML VIAL IV PRN (07:29)
[2017-10-05 07:59] LABS: Lactic Acid 1.5 mmol/L (0.5-2.2)
[2017-10-05 08:08] LABS: CKMB 1.6 ng/mL (0-6.6); Troponin I 0.107 ng/mL (< 0.028)
[2017-10-05] MEDS: Sodium Chloride 0.9% 500 ML IV SCH ×2 (08:37→09:41)
--- NOTE | 2017-10-05 08:39 | RAD ---
PORTABLE CHEST: HISTORY: Chest pain. COMPARISON: 05/19/17 study. FINDINGS: Heart size is slightly enlarged with postop sternotomy change. The lungs are clear of infiltrates. No signs of failure. IMPRESSION: Minimal cardiomegaly. POS: [facility]
[2017-10-05] MEDS: Famotidine 20 MG TAB PO SCH ×2 (08:40→20:04)
[2017-10-05] MEDS: Atorvastatin Calcium 20 MG TAB PO SCH (08:40)
[2017-10-05] MEDS: Carvedilol 3.125 MG TAB PO SCH ×2 (08:40→20:05)
[2017-10-05] MEDS: Polyethylene Glycol 3350 17 GM Packet PO SCH (08:41)
[2017-10-05] MEDS ORDERED: Atorvastatin Calcium 20 MG TAB PO SCH (09:00)
--- NOTE | 2017-10-05 10:16 | HP ---
DATE OF ADMISSION: 10/05/2017 PRIMARY CARE PHYSICIAN: Dr. Matt Espitia at [facility]. PRIMARY CINDER MAN: Lai Deutsch M.D. CHIEF COMPLAINT: Nausea, vomiting, and abdominal pain. HISTORY OF PRESENT ILLNESS: This is an 87-year-old male who presents to [facility] cy department complaining of epigastric abdominal pain that initially started approximately 12:30 a.m . on 10/05/2017. The patient states the pain woke him from sleep and had an associated 10 episodes o f emesis with the pain. Patient denied any hematemesis, but states he took 3 sublingual nitroglyceri ns without relief of his symptoms. The patient states he had a similar episode occurred approximatel y one week prior to this episode taking nitroglycerin x2 with resolution of his symptoms. The patien t denied any specific difficulty with bowel movements, recent trauma, injury, travel history, or diar keli. The patient denied any fever, cough, congestion, lower extremity edema or orthopnea. The mary jo ent states that he underwent coronary artery bypass grafting procedure x3 vessels in late 04/2017. T he patient states he had some postoperative symptoms similar with abdominal pain; however, no specifi c etiology was identified. The patient initially rated the pain in the epigastric region as 8/10, im proved with morphine sulfate and Zofran. The patient denied any specific change to his medication re gimen or activity level. The patient denies any prior history of bowel obstruction or difficulty wit h bowel movements. The patient states his last bowel movement was in the last 24 hours and appeared normal to him. In the emergency room, patient underwent general evaluation including chest imaging s howing no acute infiltrates. Screening metabolic profile showed mildly elevated troponin I at which point patient received morphine sulfate, Zofran and Phenergan. The patient was transferred to the ob servation unit for further evaluation. PAST MEDICAL HISTORY: 1. Status post ST elevation myocardial infarction in 03/2017. 2. Coronary artery disease status post coronary artery bypass grafting x3 vessels in 04/2017. 3. 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 4. Chronic kidney disease stage 2. 5. Hypertension. 6. Benign prostatic hypertrophy. 7. History of constipation. 8. Chronic low back pain. 9. History of prostate carcinoma. PAST SURGICAL HISTORY: 1. Status post carotid endarterectomy. 2. Status post coronary artery bypass grafting x3 vessels. 3. Status post cardiac catheterization with stent placement x6. 4. Status post right cochlear implant. 5. Status post right shoulder repair. 6. Status post prostatectomy. CURRENT MEDICATIONS: 1. Aspirin 325 mg 1 tab p.o. daily. 2. Lipitor 20 mg one tab p.o. daily. 3. Coreg 3.125 mg p.o. b.i.d. 4. Folic acid 1 mg 1 tab p.o. daily. 5. Gabapentin 200 mg p.o. at bedtime. 6. Multivitamin 1 tab p.o. daily. 7. Nitroglycerin 0.4 mg sublingually every 5 minutes p.r.n. chest pain. 8. Protonix 20 mg p.o. daily. ALLERGIES: To CEPHALOSPORINS and PENICILLIN. FAMILY HISTORY: No inheritable diseases per patient report. 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 , residing in the [facility]. No current alcohol, tobacco or illicit drug use. REVIEW OF SYSTEMS: The following complete review of systems was negative, unless otherwise mentioned in the HPI or below: Constitutional: Weight loss or gain, ability to conduct usual activities. Skin: Rash, itching. Eyes: Double vision, pain. ENT/Mouth: Nose bleeding, neck stiffness, pain, tenderness. Cardiovascular: Palpitations, dyspnea on exertion, orthopnea. Respiratory: Shortness of breath, wheezing, cough, hemoptysis, fever or night sweats. Gastrointestinal: Poor appetite, abdominal pain, heartburn, nausea, vomiting, constipation, or diarr hea. Genitourinary: Urgency, frequency, dysuria, nocturia. Musculoskeletal: Pain, swelling. Neurologic/Psychiatric: Anxiety, depression. Allergy/Immunologic: Skin rash, bleeding tendency. Otherwise negative except as stated per HPI. PHYSICAL EXAMINATION: VITAL SIGNS: On admission, blood pressure 196/89, pulse 63, respiratory rate 16, temperature 97.8 de grees Fahrenheit, and O2 saturation 92% on room air. GENERAL APPEARANCE: This is an 87-year-old male, alert and oriented x3, pleasant, conversa nt, in no acute distress. HEENT: Pupils are equal, round, and reactive to light and accommodation. Extraocular muscles are in tact. No scleral icterus, no conjunctival injection. Nares patent. OP is clear. Teeth in fair rep air. NECK: Supple, no cervical adenopathy, no thyromegaly, no carotid bruits, no JVD appreciated. Cervic al spine with full active and passive range of motion. CHEST: Lungs are clear to auscultation bilaterally. CARDIOVASCULAR: S1 and S2 with 1-2/6 systolic ejection murmur at the apex. ABDOMEN: Rounded with mild tenderness to palpation in the midepigastric region. No palpable mass. No rebound or guarding appreciated. Bowel sounds are positive in all four quadrants. EXTREMITIES: Warm and dry with fair turgor. No clubbing, cyanosis or asymmetric edema appreciated. Pulses palpable distally at the dorsalis pedis, posterior tibial and popliteal arteries bilaterally. Capillary refill is less than 2 seconds. NEUROLOGIC: Cranial nerves II-XII are grossly intact. No focal or lateralizing signs are appreciate d. PERTINENT LABORATORY DATA AND X-RAY FINDINGS: Creatinine 1.16 with estimated GFR of 59. Lactic acid level ranged between 1.5 to 2.5, calcium 10.3. LFTs within normal limits. Troponin I ranged betwee n 0.030-0.107. BNP 187, previously 713 on 06/09/2017. Lipase 10. EKG dated 10/05/2017 by my hillaryp retation shows a sinus bradycardia with heart rates in the 50s. Attenuated R waves noted in the prec ordial leads. Left axis deviation. No acute ST-T wave changes appreciated. Portable chest x-ray da radha 10/05/2017 showed no acute cardiopulmonary process. ASSESSMENT AND PLAN: 1. Midepigastric abdominal pain. The patient will be observed on the telemetry unit. Exact etiolog y unclear. Questionable anginal equivalent. We will continue trending of troponin I. Continue symp tomatic and supportive management. Serial abdominal exams. Consider abdominal imaging if symptoms r ecur. Check CBC this a.m. 2. Elevated troponin I. The patient with chronic elevated troponin I with significant history of my ocardial infarction and coronary artery disease. We will consult Cardiology Service for further eval uation and recommendations for management. Continue aspirin 325 mg daily. Nitroglycerin p.r.n. Con tinue trending troponin I. 3. Nausea and vomiting. Improved with supportive management. We will continue Zofran 4 mg IV every 6 hours p.r.n. 4. Hypertension. Resume home antihypertensive regimen and monitor clinical response. 5. Prophylaxis. Sequential compression devices while in bed. Pepcid 20 mg p.o. b.i.d. 6. Code status is FULL. Surrogate medical decision maker is patient's spouse.
[2017-10-05 10:55] LABS: Hemoglobin 13.1 g/dL (14.0-18.0); Mean Corpuscular HGB CONC 32.6 g/dL (32.0-36.0); Mean Corpuscular Hemoglobin 31.5 pg (27.0-31.0); Mean Corpuscular Volume 96.6 fl (80.0-94.0); Mean Platelet Volume 8.1 fL (7.4-10.4); Platelet Count 179 thou/uL (130-400); RBC Distribution Width 13.3 % (11.5-14.5); Red Blood Cell (RBC) Count 4.15 mill/uL (4.70-6.10); White Blood Cell (WBC) Count 12.4 thou/uL (4.8-10.8)
[2017-10-05 11:51] LABS: Band 10 % (5-11); Eosinophils 1 % (0-10); Lymphocytes 14 % (21-51); MDiff Complete? YES; Monocytes 4 % (0-10); Neutrophil 71 % (42-75); RBC Morphology Normal
[2017-10-05] MEDS: Mag-Al 1200 mg/1200 mg/30 ML UDCUP PO PRN ×2 (12:13→23:24)
[2017-10-05 15:49] LABS: CKMB 2.5 ng/mL (0-6.6)
[2017-10-05 15:50] LABS: Troponin I 0.417 ng/mL (< 0.028)
[2017-10-05 18:41] LABS: Critical Call Chem Troponin I RESULT DECREASING; Troponin I 0.334 ng/mL (< 0.028)
--- NOTE | 2017-10-05 20:25 | CON ---
DATE OF CONSULTATION: 10/05/2017 REASON FOR CONSULTATION: Nausea, vomiting and elevated troponin. 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 He has a history of CAD, status post bypass surgery. He had complete occlus ions of his LAD in addition to a severe stenosis of the ostium of the circumflex artery. His right c oronary artery did not have significant disease. There was right to left collaterals present. He un derwent a surgery in 04/2017. He had been doing well when a few days ago, he began having persistent nausea and vomiting. He state s it resolved. It then recurred. He states nitroglycerin would help his symptoms. This was differe nt than his previous presentation of angina. It was mainly in the epigastric region. He also had pa in to palpation noted in the epigastric region. During my visit, he appears to be stable with no cur rent symptoms. PAST MEDICAL HISTORY: As above including diastolic dysfunction with LVEF of 35% to 40%, chronic kidn ey disease, hypertension, BPH, low back pain, prostate cancer and previous non-Q WI. PAST SURGICAL HISTORY: Shoulder repair, prostatectomy and carotid endarterectomy. HOME MEDICATIONS: Include aspirin, Lipitor, Coreg, folic acid, gabapentin, multivitamin, nitroglycer in and Protonix. ALLERGIES: PENICILLIN and CEPHALOSPORINS. FAMILY HISTORY: Negative for CAD. SOCIAL HISTORY: No current tobacco or alcohol use. REVIEW OF SYSTEMS: Ten-point systems is reviewed and as above negative. PHYSICAL EXAMINATION: GENERAL: Patient is a pleasant male who is in no acute distress. The patient appears his stated age . VITAL SIGNS: Blood pressure 127/61, pulse 63 and temperature 99. NEUROLOGIC: The patient is alert and oriented x3 with no focal neurologic deficits. HEENT: Sclerae without icterus. Mouth has moist mucous membranes with normal pallor. NECK: No JVD. Carotid upstroke brisk. No bruits bilaterally. LUNGS: Clear to auscultation with unlabored respirations. BACK: No scoliosis or kyphosis. CARDIAC: Regular rate and rhythm with normal S1 and S2. No S3 or S4 noted. No significant rubs, mu rmurs, thrills, or gallops noted throughout the precordium. PMI is not displaced. There is no candy ternal heave. ABDOMEN: Pain to palpation noted in the upper and mid epigastric region. EXTREMITIES: 2+ femoral and 2+ dorsalis pedis pulses. No cyanosis, clubbing, or edema. SKIN: No gross abnormalities. PERTINENT LABS: Hemoglobin 13.1. Peak troponin 0.4. IMAGING DATA: EKG: Normal sinus rhythm, nonspecific ST-T wave changes. IMPRESSION: 1. Nausea and vomiting. 2. Elevated troponin. 3. Coronary artery disease. 4. Status post bypass surgery. RECOMMENDATIONS: This is certainly a complicated case. I am unsure whether Mr. Olguin' symptoms ar e anginal equivalent. They are different than these previous symptoms. He also has pain to palpatio n. His troponin is elevated and may be a reflection of demand ischemia. I did review his films and he appeared to have complete occlusion of his LAD with a complete 100% occlusion from a restenosis. He was bypassed to the LAD and is unlikely he has back filling through the LAD. He had collaterals n oted from the right coronary artery to the septal arteries of the LAD. So, certainly demand ischemia could be the cause of elevated troponin. I do not feel it is consistent with unstable angina. A gr aft occlusion within the first 6 months is also fairly uncommon. At this point, we will continue to treat conservatively. I did state that if he has more symptoms, we can certainly proceed with the an giography tomorrow, but if he continues to improve, we would then continue conservative therapy.
[2017-10-05] MEDS ORDERED: Gabapentin 100 MG CAP PO SCH (21:00)
[2017-10-05 23:57] LABS: CKMB 1.4 ng/mL (0-6.6)
[2017-10-06] LABS: Critical Call Chem Troponin I RESULT DECREASING; Troponin I 0.307 ng/mL (< 0.028)
[2017-10-06] MEDS: Mag-Al 1200 mg/1200 mg/30 ML UDCUP PO PRN (06:33)
[2017-10-06] MEDS ORDERED: Sodium Chloride 0.9% 1,000 ML IV SCH (07:30)
[2017-10-06 07:52] VITALS: BP 108/55; TEMP 98.6
[2017-10-06] MEDS: Carvedilol 3.125 MG TAB PO SCH (08:12)
[2017-10-06] MEDS: Atorvastatin Calcium 20 MG TAB PO SCH (08:12)
--- NOTE | 2017-10-06 10:06 | PRG ---
DATE OF SERVICE: 10/06/2017 SUBJECTIVE: Mr. Olguin is doing much better today. No recurrent episodes of nausea or vomiting. H is troponin was trending down from 0.4-0.3. OBJECTIVE: VITAL SIGNS: Blood pressure 108/55, pulse 69, temperature 98.6. LUNGS: Clear to auscultation. CARDIAC: Regular rate and rhythm. ABDOMEN: Soft, nontender, nondistended. EXTREMITIES: No edema. PERTINENT CARDIAC MEDICATIONS: Include carvedilol 3.25 b.i.d. IMPRESSION: 1. Atypical chest pain. 2. Epigastric pain. 3. Elevated troponin. 4. Coronary artery disease. 5. Status post bypass surgery. RECOMMENDATIONS: 1. Add aspirin. 2. Add low dose Imdur at 15 mg 1 p.o. q.a.m. It is difficult to state whether Mr. Olguin' symptoms are related to demand ischemia versus acute ev ent. I do not feel this is consistent with acute event given his symptoms. I did discuss proceeding with coronary angiography to make certain. He states he has been through enough over the last 6 thu ths, and he would like to proceed with a more conservative approach. We would recommend GI workup as well. This can be done as an outpatient versus inpatient. 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
[2017-10-06] MEDS: Polyethylene Glycol 3350 17 GM Packet PO SCH (10:08)
[2017-10-06] MEDS: Famotidine 20 MG TAB PO SCH (10:08)
--- NOTE | 2017-10-06 11:22 | DIS ---
DATE OF ADMISSION: 10/05/2017 DATE OF DISCHARGE: 10/06/2017 DISCHARGE DIAGNOSES: 1. Demand ischemia, resolved. 2. Midepigastric abdominal pain, resolved. 3. Elevated troponin I secondarily to #1, stable. 4. Nausea and vomiting, resolved. 5. Hypertension, stable. 6. Coronary artery disease, chronic and stable. 7. Status post coronary artery bypass grafting x3 vessels 2017. CONSULTATIONS: Dr. Lai Deutsch with Cardiology Service. PERTINENT LABORATORY AND X-RAY FINDINGS: Troponin I ranged between 0.030-0.417. BNP 187 previously noted 713 on 06/09/2017. CBC showed a white blood cell count of 12.4, hemoglobin 13, hematocrit 40, MCV 97, platelet count 179. Portable chest x-ray dated 10/05/2016 showed no acute cardiopulmonary process. HOSPITAL COURSE: The patient was observed on the telemetry unit after initially presenting with mide pigastric abdominal pain with associated nausea and vomiting. The patient received IV fluids in elva tion to antiemetics with serial cardiac enzyme assessment showing a mild elevation of troponin I. Du e to patient's history of coronary artery disease and prior coronary artery bypass grafting in 2017 t he patient was evaluated by the Cardiology Service. Based on current presentation and review of mary jo ent's previous cardiac catheterization the patient was medically managed with the addition of Imdur 1 5 mg daily. The patient continued on aspirin 81 mg daily, as well as Lipitor. The patient's symptom s resolved with conservative measures and tolerated regular oral intake without difficulty. Overall, the patient remained clinically stable during the hospital course with telemetry monitoring showing sinus mechanism without evidence of acute arrhythmia or dysrhythmia. The patient overall clinically stable with stable vital signs at the time of discharge. I have examined the patient and discussed l aboratory findings as well as discharge planning and current recommendations for discharge. The mary jo ent verbalized agreement with discharge plan and will discharge home on 10/06/2017. DISCHARGE MEDICATIONS: 1. Tylenol 650 mg p.o. q.6h. p.r.n. 2. Enteric-coated aspirin 81 mg 1 tab p.o. daily. 3. Lipitor 20 mg 1 tab p.o. daily. 4. Coreg 3.125 mg p.o. b.i.d. 5. Folic acid 1 mg p.o. daily. 6. Gabapentin 200 mg p.o. at bedtime. 7. Imdur 15 mg p.o. daily. 8. Multivitamin 1 tab p.o. daily. 9. Nitroglycerin 0.4 mg sublingually every 5 minutes p.r.n. chest pain. 10. Protonix 20 grams p.o. daily. FOLLOWUP: The patient will follow up with his primary care provider, Dr. Espitia at [facility] within 7 days of discharge. The patient will follow up with Dr. Lai finnegan nd to call his office for appointment time and date. CONDITION ON DISCHARGE: Stable. ACTIVITY: Ad latrice. DIET: Heart healthy. CODE STATUS: Full. DISPOSITION: Home on 10/06/2017.
== END 2017-10-06 10:23 | disposition home or self-care (01) ==
LOC: ERS 03:01 → 2SW 05:39
PROVIDERS: ADMIT Internal Medicine Infectious Disease; ATTEND Internal Medicine Infectious Disease
DX: R10.13 Epigastric pain (principal); R11.2 Nausea with vomiting, unspecified; I24.8 Other forms of acute ischemic heart disease; I25.2 Old myocardial infarction; I13.0 Hypertensive heart and chronic kidney disease with heart failure and stage 1 through stage 4 chronic kidney disease, or unspecified chronic kidney disease; N18.2 Chronic kidney disease, stage 2 (mild); I50.32 Chronic diastolic (congestive) heart failure; I25.10 Atherosclerotic heart disease of native coronary artery without angina pectoris; N40.0 Benign prostatic hyperplasia without lower urinary tract symptoms; K59.09 Other constipation; G89.29 Other chronic pain; M54.5 Low back pain; Z88.0 Allergy status to penicillin; Z88.1 Allergy status to other antibiotic agents; Z79.82 Long term (current) use of aspirin; Z79.899 Other long term (current) drug therapy; Z95.1 Presence of aortocoronary bypass graft; Z90.79 Acquired absence of other genital organ(s); Z98.890 Other specified postprocedural states; Z85.46 Personal history of malignant neoplasm of prostate
CPT/HCPCS: 71045; 80053; 82550; 82553 ×2; 83605; 83690; 83880; 84484 ×2; 85007; 85027; 93005; 94760; 96374; 96375; 96376; 99285; G0378; 36415; A4216; J2270; J2550; Q0162